=== PATIENT | female | born 2000 | race Caucasian/White ===

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

== ENCOUNTER 2022-09-09 11:40 | Outpatient (REF) | payer MEDICAID, SELFPAY ==
[2022-09-09 13:28] LABS: MANUAL DIFF FLAG NO
[2022-09-09 13:52] LABS: Basophils Percent Auto 0.4 % (0-2); Eosinophils Absolute Auto 0.1 X10*3/uL (0.0-0.4); Eosinophils Percent Auto 1.6 % (0-4); Hematocrit 41.4 % (37.0-47.0); Imm Gran Abs Auto 0.02 X10*3/uL (0.00-0.03); Imm Gran Pct Auto 0.3 % (0.0-0.4); Lymphocytes Absolute Auto 2.6 X10*3/uL (1.2-4.9); Lymphocytes Percent Auto 33.8 % (20-40); Mean Corpuscular HGB Conc 31.4 g/dl (31.0-35.0); Mean Corpuscular Volume 85.9 fL (80.0-98.0); Mean Platelet Volume 10.5 fL (9.4-12.3); Monocytes Absolute Auto 0.5 X10*3/uL (0.1-1.2); Monocytes Percent Auto 6.2 % (2-11); Neutrophils Absolute Auto 4.4 x10*3/uL (2.0-8.3); Neutrophils Percent Auto 57.7 % (45-73); Platelet Count 335 X10*3/uL (160-400); Red Blood Count 4.82 X10*6/uL (4.20-5.50); Red Cell Distribution Width 12.3 % (11.0-16.0); White Blood Count 7.6 X10*3/uL (4.8-10.8)
[2022-09-09 14:29] LABS: Iron 127 mcg/dL (30-160); Percent Iron Saturation 38 % (15-50); Total Iron Binding Capacity 330 mcg/dL (228-428); Unsaturated Iron Binding 203 ug/dL
[2022-09-09 14:47] LABS: Ferritin 18 ng/mL (10-122)
[2022-09-10 06:03] LABS: CT PCR NOT DETECTED (Not Detect.); NG PCR NOT DETECTED (Not Detect.)
[2022-09-10 19:28] LABS: HCV Log PCR <1.18 NOT DETECTED Log IU/mL (NOT DETECTED); HepC Viral Load <15 NOT DETECTED IU/mL (NOT DETECTED)
[2022-09-11 04:19] LABS: Syphilis Screen Nonreactive (Nonreactive)
[2022-09-11 13:23] LABS: HIV RNA PCR Qn Copies NOT DETECTED copies/mL (NOT DETECTED); HIV RNA PCR Qn Log Copies NOT DETECTED (NOT DETECTED)
== END 2022-09-09 11:41 | disposition home or self-care (01) ==
LOC: HO.HHCL 11:40
PROVIDERS: Visit Provider Registered Nurse
DX: Z00.00 Encounter for general adult medical examination without abnormal findings (principal); E61.1 Iron deficiency
CPT/HCPCS: 0353U; 82728; 83540; 85025; 86780; 87522; 87536

== ENCOUNTER 2023-06-10 12:22 | Outpatient (REF) | payer MEDICAID, SELFPAY ==
[2023-06-10 13:17] LABS: MANUAL DIFF FLAG NO
[2023-06-10 13:31] LABS: Basophils Percent Auto 0.4 % (0-2); Eosinophils Absolute Auto 0.3 X10*3/uL (0.0-0.4); Eosinophils Percent Auto 3.8 % (0-4); Hematocrit 43.5 % (37.0-47.0); Imm Gran Abs Auto 0.02 X10*3/uL (0.00-0.03); Imm Gran Pct Auto 0.2 % (0.0-0.4); Lymphocytes Absolute Auto 3.5 X10*3/uL (1.2-4.9); Lymphocytes Percent Auto 38.9 % (20-40); Mean Corpuscular HGB Conc 32.2 g/dl (31.0-35.0); Mean Corpuscular Hemoglobin 27.6 pg (27.0-33.0); Mean Corpuscular Volume 85.8 fL (80.0-98.0); Mean Platelet Volume 9.9 fL (9.4-12.3); Monocytes Absolute Auto 0.6 X10*3/uL (0.1-1.2); Neutrophils Absolute Auto 4.5 x10*3/uL (2.0-8.3); Neutrophils Percent Auto 49.7 % (45-73); Platelet Count 405 X10*3/uL (160-400); Red Blood Count 5.07 X10*6/uL (4.20-5.50); Red Cell Distribution Width 12.4 % (11.0-16.0); White Blood Count 9.1 X10*3/uL (4.8-10.8)
[2023-06-10 16:56] LABS: Iron 105 mcg/dL (30-160); Percent Iron Saturation 28 % (15-50); Total Iron Binding Capacity 377 mcg/dL (228-428); Unsaturated Iron Binding 272 ug/dL
[2023-06-10 17:05] LABS: Ferritin 13 ng/mL (10-122)
== END 2023-06-10 12:23 | disposition home or self-care (01) ==
LOC: HO.HHCL 12:22
PROVIDERS: Visit Provider Registered Nurse
DX: Z13.89 Encounter for screening for other disorder (principal)
CPT/HCPCS: 36415; 82728; 83540; 85025

== ENCOUNTER 2023-07-21 09:44 | Outpatient (REF) | payer MEDICAID, SELFPAY ==
[2023-07-21 15:00] LABS: HCG Quantitative < 2 mIU/mL
== END 2023-07-21 09:45 | disposition home or self-care (01) ==
LOC: HO.CHCLDS 09:44
PROVIDERS: Visit Provider Registered Nurse
DX: N92.6 Irregular menstruation, unspecified (principal)
CPT/HCPCS: 36415; 84702

== ENCOUNTER 2023-09-29 15:24 | Outpatient (REF) | payer MEDICAID, SELFPAY | END 2023-09-29 15:25 | disposition home or self-care (01) | LOC: HO.CHCLNP 15:24 | PROVIDERS: Visit Provider Registered Nurse | DX: Z13.89 Encounter for screening for other disorder (principal) ==

== ENCOUNTER 2023-09-29 19:10 | Outpatient (REF) | payer MEDICAID, SELFPAY ==
[2023-09-30 02:41] LABS: CT PCR NOT DETECTED (Not Detect.); NG PCR NOT DETECTED (Not Detect.)
[2023-09-30 13:57] LABS: Bacterial Vaginosis PCR NEGATIVE (Negative); Candida Group PCR NOT DETECTED (Not Detect); Candida glab krusei PCR NOT DETECTED (Not Detect); Trichomonas vaginalis PCR NOT DETECTED (Not Detect)
== END 2023-09-29 19:11 | disposition home or self-care (01) ==
LOC: HO.HHCLNP 19:10
PROVIDERS: Visit Provider Registered Nurse
DX: Z12.4 Encounter for screening for malignant neoplasm of cervix (principal)
CPT/HCPCS: 0352U; 36415; 87491; 87591; 87661; 88175

== ENCOUNTER 2024-01-14 12:15 | Outpatient (REF) | payer MEDICAID, SELFPAY ==
[2024-01-14 13:09] LABS: MANUAL DIFF FLAG NO
[2024-01-14 13:15] LABS: Basophils Absolute Auto 0.1 X10*3/uL (0.0-0.2); Basophils Percent Auto 0.6 % (0-2); Eosinophils Absolute Auto 0.3 X10*3/uL (0.0-0.4); Eosinophils Percent Auto 2.8 % (0-4); Hematocrit 41.9 % (37.0-47.0); Hemoglobin 13.3 g/dl (12.0-16.0); Imm Gran Abs Auto 0.03 X10*3/uL (0.00-0.03); Imm Gran Pct Auto 0.3 % (0.0-0.4); Lymphocytes Absolute Auto 3.5 X10*3/uL (1.2-4.9); Lymphocytes Percent Auto 35.5 % (20-40); Mean Corpuscular HGB Conc 31.7 g/dl (31.0-35.0); Mean Corpuscular Hemoglobin 26.3 pg (27.0-33.0); Mean Corpuscular Volume 82.8 fL (80.0-98.0); Mean Platelet Volume 9.8 fL (9.4-12.3); Monocytes Absolute Auto 0.9 X10*3/uL (0.1-1.2); Monocytes Percent Auto 9.3 % (2-11); Neutrophils Absolute Auto 5.1 x10*3/uL (2.0-8.3); Neutrophils Percent Auto 51.5 % (45-73); Platelet Count 372 X10*3/uL (160-400); Red Blood Count 5.06 X10*6/uL (4.20-5.50); Red Cell Distribution Width 12.7 % (11.0-16.0); White Blood Count 9.9 X10*3/uL (4.8-10.8)
[2024-01-14 13:34] LABS: Anion Gap 10 (12-20); Blood Urea Nitrogen 16 mg/dL (9-16); Carbon Dioxide 26 mmol/L (22-29); Chloride 109 mmol/L (96-108); Estimated Glomerular Filt Rate > 60; Glucose Random 99 mg/dL (60-115); Potassium 3.9 mmol/L (3.3-5.1); Sodium 141 mmol/L (135-145)
[2024-01-14 13:57] LABS: HCG Quantitative < 2 mIU/mL; TSH reflex Free T4 2.25 uIU/mL (0.32-4.0)
== END 2024-01-14 12:16 | disposition home or self-care (01) ==
LOC: HO.HHCL 12:15
PROVIDERS: Visit Provider Nurse Practitioner
DX: Z32.00 Encounter for pregnancy test, result unknown (principal); R00.0 Tachycardia, unspecified
CPT/HCPCS: 36415; 80048; 84443; 84702; 85025

== ENCOUNTER 2024-04-09 15:10 | Outpatient (REF) | payer MEDICAID, SELFPAY ==
--- OUTSIDE RECORDS SUMMARY | 2024-04-09 17:18 | XMS_ITS | Encounter Summary ---
Author Organization [employer] Address [address] [facility] [address] [place] [address] Care Team Providers Care Parts Room Assistant Name Role Phone Faviola Roy RENU Primary Care Provider [phone] Reason for Visit * Reason Onset Date Comments Chart Prep 04/07/2024 Encounter Details Date Type Department Care Team ([facility] st Contact Info) Description 04/07/2024 Telephone [facility] [address] [place] [address] Tami Madden MA Chart Prep Social History Tobacco Use Types Packs/Day Years Used Date Smoking Tobacco: Never Passive Smoke Exposure: Never Smokeless Tobacco: Never Alcohol Use Standard Drinks/Week Comments Never 0 (1 standard drink = 0.6 oz pur e alcohol) Depression Answer Date Recorded Patient Health Questionnaire-9 Score 0 09/29/2023 Patient Health Questionnaire-9 Score 0 09/29/2023 Last PHQ-9: Questionnaire Data Not on file 0 09/29/2023 Housing Stability Answer Date Recorded What is your housing situation today? I have tyler purdy 07/21/[address] you li ve. Do you have problems with any of the following? None of the above 07/21/2023 Food Insecurity Answer Date Recorded Within the past 12 months, y ou worried that your food would run out before you got money to buy more: Never True 07/21/2023 Within the past 12 months,th e food you bought just didn't last and you didn't have enough money to get more: Never True 11/2023 Transportation Answer Date Recorded In the past 12 months, has l ack of transportation kept you from medical appts, meetings, work or from getting things needed for daily living? No 09/29/2023 Utilities Answer Date Recorded In the past 12 months, has t he electric, gas, oil or water company threatened to shut off services in your home? No 07/21/2023 Depression Answer Date Recorded Patient Health Questionnaire-2 Score 0 09/29/2023 Internet Access Answer Date Recorded Internet Access Q1 Yes 10/13/2023 Internet Access Q2 Not on file 10/13/2023 Comments No Sex and Gender Information Value Date Recorded Sex Assigned at Female 12/10/2021 10:20 AM EDT Legal Sex Female 10:20 AM EDT Gender Identity Female 12/10/2021 10:20 AM EDT Sexual Orientation Choose not to disclose 2021 10:20 AM EDT documented as of this encounter Miscellaneous Notes * Telephone Encounter - Tami Jiang MA - 04/07/2024 10:24 AM EST Chart Prep Labs: done Images: done Vaccines due: yes Referrals: pending appt Screenings: n/a Overdue care gaps: n/a documented in this encounter Plan of Treatment Upcoming Encounters Date Type Department Care Team (Late st Contact Info) Description 05/21/2024 3:30 PM EDT Office Visit [facility] [address] [place] [address] Faviola Roy FNP [address] [place] [address] documented as of this encounter Visit Diagnoses Not on filedocumented in this encounter Additional Health Concerns Assessment Noted Time PHQ-9 Depression Total Score: 0 09/29/19 24 12:07 PM EDT documented as of this encounter Care Teams Parts Room Assistant Relationship Specialty Start Date End Date Faviola Roy FNP [address] [place] [address] PCP - General Family Medicine 10/05/21 documented as of this encounter
--- OUTSIDE RECORDS SUMMARY | 2024-04-09 17:18 | XMS_ITS | Encounter Summary ---
Author Organization [employer] Address [address] [facility] 7[address] [place] [address] Care Team Providers Care Conversion Developer Name Role Phone LucianoFaviola peres RENU Primary Care Provider [phone] Reason for Visit * Reason Comments Med Refill Encounter Details Date Type Department Care Team ([facility] st Contact Info) Description 04/05/[address] [facility] [address] [place] [address] Ml [place] NP [address] [place] [address] Encounter for test, result unknown Social History Tobacco Use Types Packs/Day Years [...] AM EDT documented as of this encounter Plan of Treatment Upcoming Encounters Date Type Department Care Team (Late st Contact Info) Description 05/21/2024 3:30 PM EDT Office Visit [facility] [address] [place] [address] Faviola Roy FNP [address] [place] [address] documented as of this encounter Visit Diagnoses Diagnosis Encounter for test, result unknown documented in this encounter Additional Health Concerns Assessment Noted Time PHQ-9 Depression Total Score: 0 09/29/19 24 12:07 PM EDT documented as of this encounter Care Teams Conversion Developer Relationship Specialty Start Date End Date Faviola Roy FNP [address] [place] [phone] PCP - General Family Medicine 10/05/21 documented as of this encounter
--- OUTSIDE RECORDS SUMMARY | 2024-04-09 17:18 | XMS_ITS | Encounter Summary ---
Author Organization [employer] Address [address] [place] [address] 7t [place] [address] Care Team Providers Care Manager Programs Name Role Phone Faviola Roy Primary Care Provider [phone] Encounter Details Date Type Department Care Team ([facility] Contact Info) Description 09/11/2022 Orders Only [facility] [address] [place] [address] Faviola Roy FNP [address] [place] [address] Dietary iron deficiency without anemia (Primary Dx) Social History Tobacco Use Types Packs/Day Years Used Date Smoking Tobacco: Never Passive Smoke Exposure: Never Smokeless Tobacco: Never Alcohol Use Standard Drinks/Week Comments Never 0 (1 standard drink = 0.6 oz pur e alcohol) Depression Answer Date Recorded Patient Health Questionnaire-9 Score 0 02/13/2022 Depression Answer Date Recorded Patient Health Questionnaire-2 Score 0 02/13/2022 Comments No Sex and Gender Information Value Date Recorded Sex Assigned at Female 12/10/2021 10:20 AM EDT Legal Sex Female 10:20 AM EDT Gender Identity Female 12/10/2021 10:20 AM EDT Sexual Orientation Choose not to disclose 2021 10:20 AM EDT documented as of this encounter Plan of Treatment Upcoming Encounters Date Type Department Care Team ([facility] Contact Info) Description 05/21/2024 3:30 PM EDT Office Visit [facility] [address] [place], [place] [phone] Faviola Roy FNP [address] [place] [address] Scheduled Orders Name Type Priority Associated Diagnoses Orde r Schedule Ferritin Lab Routine Dietary iron deficiency without anemia Expected: 09/11/2022, Expires: 09/12/2023 Iron, TIBC And Ferritin Panel Lab Routine Dietary iron deficiency without anemia Expected: 09/11/2022 (Approximate), Expires: 09/12/2023 CBC auto differential Lab Routine Dietary iron deficiency without anemia Expected: 09/11/2022 (Approximate), Expires: 09/12/2023 documented as of this encounter Procedures Procedure Name Priority Date/Time Associated Diagnosis Comments CBC WITH AUTO DIFFERENTIAL Routine 06/10/2023 12:03 PM EDT Dietary iron deficiency without anemia IRON AND TOTAL IRON BINDING CAPACITY Routine 06/10/2023 12:03 PM EDT Dietary iron deficiency without anemia FERRITIN Routine 06/10/2023 12:03 PM EDT Dietary iron deficiency without anemia documented in this encounter Results * Ferritin (06/10/2023 12:03 PM EDT) Ferritin 13 10 - 122 ng/mL [facility] 06/10/2023 12:0 3 PM EDT 06/10/2023 3:56 PM EDT Faviola Roy SOIL ENGINEER LAB BLOOD ORDERABLES Final Res ult [facility] [address] [place] [phone] * Iron And Total Iron Binding Capacity (06/10/2023 12:03 PM EDT) Iron 105 30 - 160 mcg/dL [facility] Total Iron Binding Capacity 377 228 - 428 mcg/dL [facility] Percent Iron Saturation 28 15 - 50 % [facility] Unsaturated Iron Binding 272 ug/dL [facility] 06/10/2023 12:0 3 PM EDT 06/10/2023 3:56 PM EDT us Faviola Roy SOIL ENGINEER LAB BLOOD ORDERABLES Final Res ult [facility] [address] [place] [address] [phone] * (ABNORMAL) CBC auto differential (06/10/2023 12:03 PM EDT) White Blood Count 9.1 4.8 - 10.8 X10*3/uL [facility] Red Blood Count 5.07 4.20 - 5.50 X10*6/uL [facility] Hemoglobin 14.0 12.0 - 16.0 g/dl [facility] Hematocrit 43.5 37.0 - 47.0 % [facility] Mean Corpuscular Volume 85.8 80.0 - 98.0 fL [facility] Mean Corpuscular Hemoglobin 27.6 27.0 - 33.0 pg [facility] Mean Corpuscular HGB Conc 32.2 31.0 - 35.0 g/dl [facility] Red Cell Distribution Width 12.4 11.0 - 16.0 % [facility] Platelet Count 405(H) 160 - 400 X10*3/uL [facility] Mean Platelet Volume 9.9 9.4 - 12.3 fL [facility] Neutrophils Percent Auto 49.7 45 - 73 % [facility] Imm Gran Pct Auto 0.2 0.0 - 0.4 % [facility] Lymphocytes Percent Auto 38.9 20 - 40 % [facility] Monocytes Percent Auto 7.0 2 - 11 % [facility] Eosinophils Percent Auto 3.8 0 - 4 % [facility] Basophils Percent Auto 0.4 0 - 2 % [facility] NRBC Pct Auto 0.0 0.0 - 0.2 /100WBC [facility] Neutrophils Absolute Auto 4.5 2.0 - 8.3 x10*3/uL [facility] Imm Gran Abs Auto 0.02 0.00 - 0.03 X10*3/uL [facility] Lymphocytes Absolute Auto 3.5 1.2 - 4.9 X10*3/uL [facility] Monocytes Absolute Auto 0.6 0.1 - 1.2 X10*3/uL [facility] Eosinophils Absolute Auto 0.3 0.0 - 0.4 X10*3/uL [facility] Basophils Absolute Auto 0.0 0.0 - 0.2 X10*3/uL [facility] NRBC Abs Auto 0.000 0.0 - 0.012 X10*3/uL [facility] 06/10/2023 12:0 3 PM EDT 06/10/2023 1:14 PM EDT us Faviola SEARS LAB BLOOD ORDERABLES Final Res ult Performing Organization Address City/State/[facility] Co de Phone Number [facility] [address] [place] [phone] [phone] documented in this encounter Visit Diagnoses Diagnosis Dietary iron deficiency without anemia- Primary documented in this encounter Additional Health Concerns Assessment Noted Time PHQ-9 Depression Total Score: 0 02/13/19 23 1:59 PM EST documented as of this encounter Care Teams Manager Programs Relationship Specialty Start Date End Date Faviola Ryo FNP [address] [place] [address] PCP - General Family Medicine 10/05/21 documented as of this encounter
--- OUTSIDE RECORDS SUMMARY | 2024-04-09 17:18 | XMS_ITS | Encounter Summary ---
Author Organization [employer] Address [address] [facility] 7t [place] [address] Care Team Providers Care Book Sorter Name Role Phone Faviola Roy RENU Primary Care Provider [phone] Encounter Details Date Type Department Care Team (Latest Contact Info) Description 04/09/2024 Travel Social History Tobacco Use Types Packs/Day Years [...] Description 05/21/2024 3:30 PM EDT Office Visit [facility] [address] [place], [place] [phone] Faviola Roy FNP [address] [place] [address] documented as of this encounter Visit Diagnoses Not on filedocumented in this encounter Additional Health Concerns Assessment Noted Time PHQ-9 Depression Total Score: 0 09/29/19 24 12:07 PM EDT documented as of this encounter Care Teams Book Sorter Relationship Specialty Start Date End Date Faviola Roy FNP [address] [place] [address] PCP - General Family Medicine 10/05/21 documented as of this encounter
--- OUTSIDE RECORDS SUMMARY | 2024-04-09 17:18 | XMS_ITS | Encounter Summary ---
Author Organization [employer] Address [address] [place] [address] [address] [place] [address] Care Team Providers Care Gasoline Tractor Operator Name Role Phone Faviola Roy Primary Care Provider [phone] Reason for Visit * Reason Comments Follow-up Encounter Details Date Type Department Care Team ([facility] Contact Info) Description 04/09/2024 2:30 PM EST Office Visit [facility] [address] [place], [place] [phone] Faviola Roy FNP [address] [place], [place] [phone] Encounter for immunization (Primary Dx); Screening examination for STI Social History Tobacco Use Types Packs/Day Years [...] AM EDT documented as of this encounter Last Filed Vital Signs Vital Sign Reading Time Taken Comments Blood Pressure 138/58 04/09/2024 2:14 PM EST Pulse 106 04/09/2024 2:14 PM EST Temperature 36.8 ??C (98.2 ??F) 04/09/2024 2:14 PM ES T Respiratory Rate 20 04/09/2024 2:14 PM EST Oxygen Saturation 98% 04/09/2024 2:14 PM EST Inhaled Oxygen Concentration - - Weight 85.2 kg (187 lb 12.8 oz) 04/09/2024 2:14 PM EST Height 149.9 cm (4' 11 ) 04/09/2024 2:14 PM EST Body Mass Index 37.93 04/09/2024 2:14 PM EST documented in this encounter Plan of Treatment Upcoming Encounters Date Type Department Care Team (Late st Contact Info) Description 05/21/2024 3:30 PM EDT Office Visit [facility] [address] [place], [place] [phone] Faviola Roy FNP [address] [place], [place] [phone] Scheduled Orders Name Type Priority Associated Diagnoses Orde r Schedule hCG, Total, Quantitative Lab Routine Screening examination for STI Expected: 04/09/2024 (Approximate), Expires: 04/09/2025 Iron And Total Iron Binding Capacity Lab Routine Screening examination for STI Expected: 04/09/2024, Expires: 04/09/2025 Ferritin Lab Routine Screening examination for STI Expected: 04/09/2024, Expires: 04/09/2025 CBC auto differential Lab Routine Screening examination for STI Expected: 04/09/2024 (Approximate), Expires: 04/09/2025 Chlamydia/N. Gonorrhoeae RNA, TMA, Urogenitial Microbiology Routine Screening examination for STI Expected: 04/09/2024, Expires: 04/09/2025 Hepatitis C Viral RNA, Quantitative, Real-Time PCR Lab Routine Screening examination for STI Expected: 04/09/2024 (Approximate), Expires: 04/09/2025 RPR (Monitor) with Reflex to??Titer Lab Routine Screening examination for STI Expected: 04/09/2024 (Approximate), Expires: 04/09/2025 HIV-1/2 Antigen and Antibodies, Fourth Generation, with Reflexes Lab Routine Screening examination for STI Expected: 04/09/2024 (Approximate), Expires: 04/09/2025 Mycoplasma genitalium,??rRNA, TMA Lab Routine Screening examination for STI Expected: 04/09/2024 (Approximate), Expires: 04/09/2025 documented as of this encounter Visit Diagnoses Diagnosis Encounter for immunization- Primary Screening examination for STI documented in this encounter Additional Health Concerns Assessment Noted Time PHQ-9 Depression Total Score: 0 09/29/19 24 12:07 PM EDT documented as of this encounter Care Teams Gasoline Tractor Operator Relationship Specialty Start Date End Date Faviola Roy FNP [address] [place] [phone] PCP - General Family Medicine 10/05/21 documented as of this encounter
--- OUTSIDE RECORDS SUMMARY | 2024-04-09 17:19 | XMS_ITS | Clinical Summary ---
Author Organization [employer] Address [address] [place] [address] [address] [place] [address] Care Team Providers Care Apparel Patternmaker Name Role Phone Faviola Roy RENU Primary Care Provider [phone] Allergies Active Allergy Reactions Criticality Noted Date Comments Aguero Hives,Itching Medium 04/09/2024 Medications ferrous sulfate (Fe Tabs) 325 (65 Fe) MG EC tabletIndicatio ns:Iron deficiency Take 1 tablet (325 mg) by mouth Once per day. Do not crush, chew, or split. 60 tablet 4 025 Active levonorgestrel- ethinyl estradiol (Aviane) 0.1-20 MG-MCG tabletIndicatio ns:Encounter for routine history and physical examination of adult Take 1 tablet by mouth Once per day. 90 tablet 1 4 025 Active multivitamin () 27-0.8 MG tabletIndicatio ns:Encounter for test, result unknown TAKE 1 TABLET BY MOUTH EVERY DAY 90 tablet 1 5 Active doxycycline (Vibramycin) 100 MG capsule Take 1 capsule (100 mg) by mouth 2 times daily for 7 days. Take with at least 8 ounces (large glass) of water, do not lie down for 30 minutes after 14 capsule 5 025 Active azithromycin (Zithromax) 500 MG tablet Take 2 tablets (1,000 mg) by mouth Once per day for 1 day, THEN 1 tablet (500 mg) Once per day for 3 days. 5 tablet 5 025 Active multivitamin () 27-0.8 MG tabletIndicatio ns:Encounter for test, result unknown Take 1 tablet by mouth Once per day. 30 tablet 3 4 025 Discontinued Active Problems Problem Noted Date Diagnosed Date Healthcare maintenance 10/03/2023 Overview (10/03/2023): Last PE: 09/29/23 Pap: NILM on 09/29/23 Contraception: COCP Iron deficiency 09/09/2022 Assessment & Plan (10/03/2023 6:59 PM EDT): Iron supplement (June-Sep 2023) Switched formulation from ferrous gluconate to ferrous sulfate, pt tolerating better Advised to recheck iron studies, if improved and no anemia, can DC iron supplementation Assessment & Plan (07/24/2023 11:53 AM EDT): Continues on iron supplement (June-Sep 2023) Switch formulation from ferrous gluconate to ferrous sulfate to see if pt tolerates formulation better Assessment & Plan (09/17/2022 4:36 PM EDT): ?? Continues on ferrous gluconate 3x/week ?? Recheck CBC and iron studies Allergic rhinitis 11/22/2016 Assessment & Plan (02/13/2022 10:48 AM EST): -Previously working with therapist, no longer and reports mental health has been good overall Resolved Problems Problem Noted Date Diagnosed Date Resolved Date Adjustment disorder 01/14/2022 09/10/19 23 Assessment & Plan (02/13/2022 10:48 AM EST): -Not currently using any tx and reports symptoms well controlled Encounters Date Type Department Care Team Description 04/09/2024 2:30 PM EST Office Visit [facility] [address] [place] [address] Faviola Roy FNP Encounter for immunization (Primary Dx); Screening examination for STI 04/09/2024 Travel 04/07/2024 Telephone [facility] [address] [place] [address] Tami Madden MA Chart Prep 04/05/2024 Refill [facility] [address] [place] [phone] Ml Eden NP Encounter for test, result unknown 01/27/2024 Telephone [facility] [address] [place] [address] Tami Madden MA Chart Prep 01/15/2024 Telephone [facility] [address] [place] [phone] Anne-Marie Sher RN Results 01/12/2024 6:20 PM EST Office Visit [facility] [address] [address] Ml Eden NP Encounter for test, result unknown (Primary Dx); Tachycardia from Last 3 Months Immunizations Name Administration Dates Next Due DTaP 12/16/2006, 4,05/03/2003,02/16,2002 HPV, Quadrivalent 06/22/2014,02/17/2014,11/02/19 14 Hep A, ped/adol, 2 dose 05/03/2016,09/11/2015 Hep B, Adolescent or Pediatric 05/03/2003,2002,2002 Hep B, adult 09/09/2022,02/13/2022,12/28/2021 Hib (HbOC) 03/21/2003,02/16/2003,2002 IPV 12/16/2006, 4,02/16/2003,11/25 Influenza injectable quadriv alent IIV4 with preservative 10/28/2016,11/03/2015 Influenza injectable quadriv alent preservative free 11/28/2021,12/29/2020,01/31/2020,12/16,12/10/2017,10/28/2016,11/03/2015 Influenza live intranasal qu adrivalent LIAV4 11/01/2013 Influenza, seasonal, injecta ble, preservative free 04/09/2024 MMR 12/16/2006,09/20/2003 Meningococcal MCV4P [id number] 12/16/2018,11/02/19 14 Pfizer Covid-19 Vaccine 12+ 04/09/2024,0 07/21/2023,02/15/2021,07/27,07/06/2020 Pfizer Covid-19 Vaccine 12+ Bivalent 03/26/2022 Tdap 04/09/2024,11/01/2013 Varicella 02/15/2010,11/09/2003 Family History Medical History Relation Name Comments Asthma Brother seizure disorder Brother Relation Name Status Comments Brother Social History Tobacco Use Types Packs/Day Years Used Date Smoking Tobacco: Never Passive Smoke Exposure: Never Smokeless Tobacco: Never Tobacco Cessation:Counseling Given: Not Answered Alcohol Use Standard Drinks/Week Comments Never 0 [...] not to disclose 2021 10:20 AM EDT Last Filed Vital Signs Vital Sign Reading [...] Mass Index 37.93 04/09/2024 2:14 PM EST Plan of Treatment Upcoming Encounters Date Type Department Care Team (Late st Contact Info) Description 05/21/2024 3:30 PM EDT Office Visit [facility] [address] [place] [address] Faviola Roy FNP [address] [place] [address] Health Maintenance Due Date Last Done Comments Alcohol/Substance Use Screening 09/28/2024 09/29/2023 Chlamydia and Gonorrhea Screening 09/28/2024 09/29/2023, 09/09/2022, 03/13/2022, Additional history exists Depression Screening 09/28/2024 09/29/2023, 09/29/19 SDOH Screening 09/28/2024 09/29/2023 Family Planning (PISQ) 10/02/2024 10/03/2023 Tobacco Screening 10/02/2024 10/03/2023 Pap Smear 09/28/2026 09/29/2023 DTaP/Tdap/Td Vaccines (8 - Td or Tdap) 04/09/2034 04/09/2024, 11/01/2013, 12/16/2006, Additional history exists Zoster Vaccines (1 of 2) 2052 RSV Patients and Patients Aged 60 years or older (1 - 1-dose 75+ series) 2077 HIB Vaccines Aged Out 03/21/2003, 08/2003, 2002 No longer eligible based on patient's age to complete this topic IPV Vaccines Completed 12/16/2006, 04/11, 02/16/2003, Additional history exists HPV Vaccines Completed 06/22/2014, 09/2014, 11/01/2013 Hepatitis A Vaccines Completed 05/03/2016, 09/11/19 16 Meningococcal Vaccine Completed 12/16/2018, 014 HIV Screening Completed 09/09/2022 Hepatitis B Vaccines Completed 09/09/2022, 02/13/2022, 12/28/2021, Additional history exists Hepatitis C Screening Completed 09/09/2022, 021 COVID-19 Vaccine Completed 04/09/2024, 11/2023, 03/26/2022, Additional history exists Influenza Vaccine Completed 04/09/2024, , 12/29/2020, Additional history exists Pneumococcal Vaccine: Pediatrics (0 to 5 Years) and At-Risk Patients (6 to 49) Years) Aged Out No longer eligible based on patient's age to complete this topic RSV under 20 months Aged Out No longe r eligible based on patient's age to complete this topic Rotavirus Vaccines Aged Out No longer eligible based on patient's age to complete this topic Procedures Procedure Name Priority Date/Time Associated Diagnosis Comments BASIC METABOLIC PANEL Routine 01/14/2024 12:20 PM EST Tachycardia TSH W/REFLEX TO FT4 Routine 01/14/2024 1 2:20 PM EST Tachycardia CBC WITH AUTO DIFFERENTIAL Routine 01/14/2024 12:20 PM EST Tachycardia HCG, TOTAL, QN Routine 01/14/2024 12:20 PM EST Encounter for test, result unknown POCT , URINE Routine 01/12/2024 7:11 PM EST Encounter for test, result unknown CHLAMYDIA/N. GONORRHOEAE RNA, TMA, UROGENITAL Routine 09/29/2023 11:48 AM EDT Dietary iron deficiency without anemia THINPREP IMAGING SYSTEM PAP Routine 09/29/2023 11:47 AM EDT Screening for cervical cancer HEPATITIS C VIRAL RNA, QUANTITATIVE, REAL-TIME PCR Routine 09/09/2022 11:43 AM EDT Encounter for routine history and physical examination of adult HIV 1 RNA, QUANTITATIVE REAL TIME PCR Routine 09/09/2022 11:43 AM EDT Encounter for routine history and physical examination of adult from Last 3 Months or Most Recently Relevant to Health Maintenance Results * TSH W/Reflex to FT4 (01/14/2024 12:20 PM EST) TSH reflex Free T4 2.25 0.32 - 4.0 uIU/mL [facility] Blood Venous blood specimen / Unknown 01/14/2024 12:20 PM EST 01/14/2024 12:56 PM EST Ml Eden SHEAR GRINDER OPERATOR HELPER LAB BLOOD ORDERABLES Final Resu lt [facility] [address] [place] [phone] * (ABNORMAL) CBC auto differential (01/14/2024 12:20 PM EST) White Blood Count 9.9 4.8 - 10.8 X10*3/uL [facility] Red Blood Count 5.06 4.20 - 5.50 X10*6/uL [facility] Hemoglobin 13.3 12.0 - 16.0 g/dl [facility] Hematocrit 41.9 37.0 - 47.0 % [facility] Mean Corpuscular Volume 82.8 80.0 - 98.0 fL [facility] Mean Corpuscular Hemoglobin 26.3(L) 27.0 - 33.0 pg [facility] Mean Corpuscular HGB Conc 31.7 31.0 - 35.0 g/dl [facility] Red Cell Distribution Width 12.7 11.0 - 16.0 % [facility] Platelet Count 372 160 - 400 X10*3/uL [facility] Mean Platelet Volume 9.8 9.4 - 12.3 fL [facility] Neutrophils Percent Auto 51.5 45 - 73 % [facility] Imm Gran Pct Auto 0.3 0.0 - 0.4 % [facility] Lymphocytes Percent Auto 35.5 20 - 40 % [facility] Monocytes Percent Auto 9.3 2 - 11 % [facility] Eosinophils Percent Auto 2.8 0 - 4 % [facility] Basophils Percent Auto 0.6 0 - 2 % [facility] NRBC Pct Auto 0.0 0.0 - 0.2 /100WBC [facility] Neutrophils Absolute Auto 5.1 2.0 - 8.3 x10*3/uL [facility] Imm Gran Abs Auto 0.03 0.00 - 0.03 X10*3/uL [facility] Lymphocytes Absolute Auto 3.5 1.2 - 4.9 X10*3/uL [facility] Monocytes Absolute Auto 0.9 0.1 - 1.2 X10*3/uL [facility] Eosinophils Absolute Auto 0.3 0.0 - 0.4 X10*3/uL [facility] Basophils Absolute Auto 0.1 0.0 - 0.2 X10*3/uL [facility] NRBC Abs Auto 0.000 0.0 - 0.012 X10*3/uL [facility] Blood Venous blood specimen / Unknown 01/14/2024 12:20 PM EST 01/14/2024 12:56 PM EST us Ml Eden SHEAR GRINDER OPERATOR HELPER LAB BLOOD ORDERABLES Final Resu lt [facility] [address] [place] [address] [phone] * hCG, Total, Quantitative (01/14/2024 12:20 PM EST) [facility] HCG Quantitative <2 mIU/mL [facility] Comment:Weeks post LMP Appr oximate hCG(Last Menstrual Period) Range (mIU/ml)3 - 4 weeks 9 - 1304 - 5 weeks 75 - 2,6005 - 6 weeks 850 - 20,8006 - 7 weeks 4000 - 100,2007 - 12 weeks 11,500 - 289,15212 - 16 weeks 18,300 - 137,05950 - 29 weeks (2nd trimester) 1,400 - 53,61541 - 41 weeks (3rd trimester) 940 - 60,000The Siu B-hCG assay is used for the early detection ofpregnancy; it cannot be used to diagnose any conditionunrelated to . If a B-hCG level is not supportedby the clinical evidence, results should be confirmed by analternative method (qualitative urine hCG, for example). Blood Venous blood specimen / Unknown 01/14/2024 12:20 PM EST 01/14/2024 12:56 PM EST Ml Eden NP LAB BLOOD ORDERABLES Final Resu lt [facility] [address] [place] [address] [phone] * (ABNORMAL) Basic Metabolic Panel (01/14/2024 12:20 PM EST) [facility] Sodium 141 135 - 145 mmol/L [facility] Potassium 3.9 3.3 - 5.1 mmol/L [facility] Chloride 109(H) 96 - 108 mmol/L [facility] Carbon Dioxide 26 22 - 29 mmol/L [facility] Anion Gap 10(L) 12 - 20 [facility] Urea Nitrogen (BUN) 16 9 - 16 mg/dL [facility] Creatinine, Serum 0.79 0.5 - 1.4 mg/dL [facility] Estimated Glomerular Filt Rate >60 [facility] Comment:Chronic Kidney Disea se: Estimated GFR < 60 mL/min/1.81n8Gsqlcj Kidney Disease: Estimated GFR < 15 mL/min/1.73m2 Glucose 99 60 - 115 mg/dL [facility] Calcium 9.0 8.4 - 10.2 mg/dL [facility] Blood Venous blood specimen / Unknown 01/14/2024 12:20 PM EST 01/14/2024 12:56 PM EST [facility] LAB BLOOD ORDERABLES Final Resu lt [facility] [address] [place] [address] [phone] * POCT Urine (01/12/2024 7:11 PM EST) Preg Test, Ur Negative Negative, Indeterminate, None Detected, Invalid, Specimen unsatisfactory for evaluation, Weakly Positive QC Media Lot # [id number] Lot# Expiration Date Urine 01/12/2024 7:11 PM EST [facility] POINT OF CARE TEST ENTER/EDIT O RDERABLES Final Result * Chlamydia/N. Gonorrhoeae RNA, TMA, Urogenitial (09/29/2023 11:48 AM EDT) CT PCR NOT DETECTED Not Detect. [facility] Comment:A not detected test result does not exclude the possibilityof infection because test results can be affected byimproper specimen collection, concurrent antibiotic therapy,or the number of organisms in the specimen which may bebelow the sensitivity of the test. As with many diagnostictests, results from the Xpert CT/NG assay should beinterpreted in conjunction with other laboratory andclinical data available to the clinician.Xpert CT/NG performance has not been evaluated in patientsless than 14 years of age. The assay should not be used forthe evaluationof suspected sexual abuse or for other medico-legalindications. Additional testing is recommended in anycircumstance when false positive or false negative resultscould lead to adverse medical, social or psychologicalconsequences. NG PCR NOT DETECTED Not Detect. [facility] Comment:A not detected test result does not exclude the possibilityof infection because test results can be affected byimproper specimen collection, concurrent antibiotic therapy,or the number of organisms in the specimen which may bebelow the sensitivity of the test. As with many diagnostictests, results from the Xpert CT/NG assay should beinterpreted in conjunction with other laboratory andclinical data available to the clinician.Xpert CT/NG performance has not been evaluated in patientsless than 14 years of age. The assay should not be used forthe evaluationof suspected sexual abuse or for other medico-legalindications. Additional testing is recommended in anycircumstance when false positive or false negative resultscould lead to adverse medical, social or psychologicalconsequences. 09/29/2023 11:4 8 AM EDT 09/29/2023 7:57 PM EDT Narrative [facility] - 09/30/2023 2:42 AM EDT ONLY RECIEVED ONE SWABVaginal Faviola Roy [facility] MICROBIOLOGY - GENERAL ORD ERABLES Final Result [facility] [address] [place] [phone] * Pap Smear (09/29/2023 11:47 AM EDT) SOURCE: SEE NOTE [facility] Comment:None given Report Status: [facility] Clinical Information: SEE NOTE [facility] Comment:None given LMP: SEE NOTE [facility] Comment:NONE GIVEN Prev. PAP: SEE NOTE [facility] Comment:NONE GIVEN Prev. BX: SEE NOTE [facility] Comment:NONE GIVEN Statement Of Adequacy: SEE [facility] Comment:Satisfactory for jesus luation.Endocervical/transformation zone componentpresent. General Categorization: [facility] Interpretation/Result: SEE NOTE [facility] Comment:Cytology Results: Ne gative for intraepitheliallesion or malignancy. Cytology Comment SEE NOTE [facility] Comment:This Pap test has be en evaluated with computerassisted technology. System Technologist: SEE NOTE [facility] Comment:CMB, CT(ASCP) CT Scr eening Location: [employer] [address] preparation performed at: [facility], [address] [place] [id number] CLIA No. [id number] Review System Technologist: [facility] Pathologist [facility] PAP Infection [facility] See Note SEE NOTE [facility] Comment:EXPLANATORY NOTE:The Pap is a screening test for cervical cancer. It isnot a diagnostic test and is subject to false negativeand false positive results. It is most reliable when asatisfactory sample, regularly obtained, is submittedwith relevant clinical findings and history, and whenthe Pap result is evaluated along with historic andcurrent clinical information.THIS TEST WAS PERFORMED AT:[facility] [address] [id number] MERATI,MD Pap Vial Vaginal structure / Unknown 09/29/2023 11:47 AM EDT 09/29/2023 7:13 PM EDT Narrative [facility] - 10/03/2023 2:51 PM EDT SEE SCANNED RESULTS IN EMR Faviola Roy [facility] PATHOLOGY ORDERABLES Final Result [facility] [address] [place] [address] [phone] * Hepatitis C Viral RNA, Quantitative, Real-Time PCR (09/09/2022 11:43 AM EDT) Hepatitis C Viral Load <15 NOT DETECTED NOT DETECTED IU/mL [facility] HCV Log PCR <1.18 NOT DETECTED NOT DETECTED Log IU/mL [facility] Comment:This test was perfor med using Real-Time Polymerase ChainReaction.Reportable Range: 15 IU/mL to 100,000,000 IU/mL(1.18 Log IU/mL to 8.00 Log IU/mL).The analytical performance characteristics of thisassay have been determined by [facility].The modifications have not been cleared or approved bythe FDA. This assay has been validated pursuant to theCLIA regulations and is used for clinical purposes.For more information on this test, go to:http://education.[employer]/faq/TRT05d7(This link is being provided for informational/educational purposes only.)THIS TEST WAS PERFORMED AT:[email or web address] [address] [id number] SIM MD Blood 09/09/2022 11:4 3 AM EDT 09/09/2022 1:24 PM EDT Faviola MORGANP LAB BLOOD ORDERABLES Final Res ult Performing Organization Address [facility] de Phone Number [address] [phone] * HIV-1 RNA, Quantitative, Real-Time PCR (09/09/2022 11:43 AM EDT) [facility] Signature HIV RNA PCR Qn Copies NOT DETECTED NOT DETECTED copies/mL [facility] HIV RNA PCR Qn Log Copies NOT DETECTED NOT DETECTED [facility] Comment:Result Units: Log co pies/mLThis test was performed using Real-Time Polymerase ChainReaction.Reportable Range: 20 copies/mL to 10,000,000 copies/mL(1.30 log copies/mL to 7.00 log copies/mL).THIS TEST WAS PERFORMED AT:[email or web address] [address] [id number] SIM MD Blood Venous blood specimen / Unknown 09/09/2022 11:43 AM EDT 09/09/2022 1:24 PM EDT Faviola MORGANP LAB BLOOD ORDERABLES Final Res ult Performing Organization Address [facility] de Phone Number [facility] [address] [place] [phone] from Last 3 Months or Most Recently Relevant to Health Maintenance Insurance [facility] C3 Care Teams Apparel Patternmaker Relationship Specialty Start Date End Date Faviola Roy FNP [address] [place] [address] PCP - General Family Medicine 10/05/21
[2024-04-09 17:48] LABS: MANUAL DIFF FLAG NO
[2024-04-09 18:15] LABS: Iron 94 mcg/dL (30-160); Percent Iron Saturation 29 % (15-50); Total Iron Binding Capacity 324 mcg/dL (228-428); Unsaturated Iron Binding 230 ug/dL
[2024-04-09 18:21] LABS: Basophils Percent Auto 0.4 % (0-2); Eosinophils Absolute Auto 0.1 X10*3/uL (0.0-0.4); Hematocrit 40.4 % (37.0-47.0); Hemoglobin 13.1 g/dl (12.0-16.0); Imm Gran Abs Auto 0.03 X10*3/uL (0.00-0.03); Imm Gran Pct Auto 0.4 % (0.0-0.4); Lymphocytes Absolute Auto 3.2 X10*3/uL (1.2-4.9); Lymphocytes Percent Auto 37.8 % (20-40); Mean Corpuscular HGB Conc 32.4 g/dl (31.0-35.0); Mean Corpuscular Hemoglobin 26.5 pg (27.0-33.0); Mean Corpuscular Volume 81.6 fL (80.0-98.0); Mean Platelet Volume 10.5 fL (9.4-12.3); Monocytes Absolute Auto 0.5 X10*3/uL (0.1-1.2); Monocytes Percent Auto 5.6 % (2-11); Neutrophils Absolute Auto 4.6 x10*3/uL (2.0-8.3); Neutrophils Percent Auto 54.8 % (45-73); Platelet Count 368 X10*3/uL (160-400); Red Blood Count 4.95 X10*6/uL (4.20-5.50); Red Cell Distribution Width 12.7 % (11.0-16.0); White Blood Count 8.4 X10*3/uL (4.8-10.8)
[2024-04-09 18:39] LABS: Ferritin 23 ng/mL (10-122); HCG Quantitative < 2 mIU/mL
[2024-04-09 19:38] LABS: CT PCR NOT DETECTED (Not Detect.); NG PCR NOT DETECTED (Not Detect.)
[2024-04-11 15:39] LABS: RPR Rapid Plasma Reagin NON-REACTIVE (NON-REACTIVE)
[2024-04-12 09:24] LABS: HIV AB/AG Nonreactive (Nonreactive)
[2024-04-12 12:07] LABS: HCV Log PCR <1.18 NOT DETECTED Log IU/mL (NOT DETECTED); HepC Viral Load <15 NOT DETECTED IU/mL (NOT DETECTED)
[2024-04-13 08:09] LABS: Mycoplasma genitalium NAA Not Detected (Not Detected)
== END 2024-04-09 15:11 | disposition home or self-care (01) ==
LOC: HO.CHCLDS 15:10
PROVIDERS: Visit Provider Registered Nurse
DX: Z11.3 Encounter for screening for infections with a predominantly sexual mode of transmission (principal)
CPT/HCPCS: 82728; 83540; 84702; 85025; 86592; 87389; 87491; 87522; 87563; 87591

== ENCOUNTER 2024-09-02 14:31 | Outpatient (REF) | payer MEDICAID, SELFPAY ==
--- OUTSIDE RECORDS SUMMARY | 2024-09-02 14:43 | XMS_ITS | Clinical Summary ---
Author Organization [facility] [address] [facility] Address [address] [place], [place] Phone Care Team Providers Care Literacy Coach Name Role Phone Unavailable Primary Care Provider Unavailabl e Social History Tobacco Use Types Packs/Day Years Used Date Smoking Tobacco: Never Assessed Comments Unknown Sex and Gender Information Value Date Recorded Sex Assigned at Not on file Legal Sex Female 1:15 PM EDT Gender Identity Not on file Sexual Orientation Not on file Plan of Treatment Upcoming Encounters Date Type Department Care Team ([facility] Contact Info) Description 10/05/2024 2:30 PM EDT Office Visit Obstetrics and Gynecology [address] [phone] [place], [facility] [address] [place], [place] Health Maintenance Due Date Last Done Comments Gonorrhea/Chlamydia Screening 2002 HPV Vaccines (1 - 3-dose series) 2017 Meningococcal B Vaccine (1 o f 2 - Standard) 2018 DTaP,Tdap,and Td Vaccines (1 - Tdap) 2021 Hepatitis B Vaccines (1 of 3 - 19+ 3-dose series) 2021 Cervical Cancer Screening: P ap Smear 09/16/2023 COVID-19 Vaccine ( - 2023-2 5 season) 2023 Depression Screening 02/11/2024 Annual Well Child Visit (3-2 1 years old) 08/31/2024 HIV Screening 08/31/2024 Hepatitis C Screening 08/31/2024 Social Influencers of Health Screening 08/31/2024 Influenza Vaccine (#1) 2024 HIB Vaccines Aged Out No longer eligi ble based on patient's age to complete this topic Hepatitis A Vaccines Aged Out No long er eligible based on patient's age to complete this topic IPV Vaccines Aged Out No longer eligi ble based on patient's age to complete this topic MMR Vaccines Aged Out No longer eligi ble based on patient's age to complete this topic Meningococcal ACWY Vaccine Aged Out N o longer eligible based on patient's age to complete this topic Pneumococcal Vaccine: Pediat rics (0 to 5 Years) and At-Risk Patients (6 to 49 Years) Aged Out No longer eligible b ased on patient's age to complete this topic RSV Immunization Patients Un rita 20 months Aged Out No longer eligible b ased on patient's age to complete this topic Varicella Vaccines Aged Out No longer eligible based on patient's age to complete this topic Insurance [place]
--- OUTSIDE RECORDS SUMMARY | 2024-09-02 14:43 | XMS_ITS | Encounter Summary ---
Author Organization [employer] Address [address] [place] [address] [address] [address] Care Team Providers Care Life Sciences Teacher Name Role Phone Faviola Roy Primary Care Provider [phone] Encounter Details Date Type Department Care Team ([facility] Contact Info) Description 09/11/2022 Orders Only [facility] MEDICINE [address] [place] [address] Faviola Roy FNP [address] [place], [place] [phone] Dietary iron deficiency without anemia (Primary Dx) [...] Encounters Date Type Department Care Team ([facility] Contact Info) Description 11/12/2024 2:45 PM EDT Office Visit [facility] CH[facility] MED & PEDS [address] [place], [place] [phone] Faviola Roy FNP [address] [place] [address] Scheduled Orders Name Type Priority Associated Diagnoses [...] EDT) Ferritin 13 10 - 122 ng/mL [facility] 06/10/2023 12:0 3 PM EDT 06/10/2023 3:56 PM EDT us Faviola Roy [facility] [employer] BLOOD ORDERABLES Final Res ult [facility] [address] [place] [phone] * Iron And Total Iron Binding Capacity (06/10/2023 12:03 PM EDT) Iron 105 30 - 160 mcg/dL [facility] Total Iron Binding Capacity 377 228 - 428 mcg/dL [facility] Percent Iron Saturation 28 15 - 50 % [facility] Unsaturated Iron Binding 272 ug/dL [facility] 06/10/2023 12:0 3 PM EDT 06/10/2023 3:56 PM EDT us Faviola Roy [facility] BLOOD ORDERABLES Final Res ult [facility] [address] [place] [address] [phone] * (ABNORMAL) CBC auto differential (06/10/2023 12:03 PM EDT) White Blood Count 9.1 4.8 - 10.8 X10*3/uL [facility] Red Blood Count 5.07 4.20 - 5.50 X10*6/uL [facility] Hemoglobin 14.0 12.0 - 16.0 g/dl [facility] Hematocrit 43.5 37.0 - 47.0 % [facility] Mean Corpuscular Volume 85.8 80.0 - 98.0 fL [facility] Mean Corpuscular Hemoglobin 27.6 27.0 - 33.0 pg [facility] Mean Corpuscular HGB Conc 32.2 31.0 - 35.0 g/dl [facility] Red Cell Distribution Width 12.4 11.0 - 16.0 % [facility] Platelet Count 405(H) 160 - 400 X10*3/uL [facility] Mean Platelet Volume 9.9 9.4 - 12.3 fL [facility] Neutrophils Percent Auto 49.7 45 - 73 % [facility] Imm Gran Pct Auto 0.2 0.0 - 0.4 % [facility] Lymphocytes Percent Auto 38.9 20 - 40 % [facility] Monocytes Percent Auto 7.0 2 - 11 % [facility] Eosinophils Percent Auto 3.8 0 - 4 % [facility] Basophils Percent Auto 0.4 0 - 2 % [facility] NRBC Pct Auto 0.0 0.0 - 0.2 /100WBC [facility] Neutrophils Absolute Auto 4.5 2.0 - 8.3 x10*3/uL [facility] Imm Gran Abs Auto 0.02 0.00 - 0.03 X10*3/uL [facility] Lymphocytes Absolute Auto 3.5 1.2 - 4.9 X10*3/uL [facility] Monocytes Absolute Auto 0.6 0.1 - 1.2 X10*3/uL [facility] Eosinophils Absolute Auto 0.3 0.0 - 0.4 X10*3/uL [facility] Basophils Absolute Auto 0.0 0.0 - 0.2 X10*3/uL [facility] NRBC Abs Auto 0.000 0.0 - 0.012 X10*3/uL [facility] 06/10/2023 12:0 3 PM EDT 06/10/2023 1:14 PM EDT us Faviola SE[facility] LAB BLOOD ORDERABLES Final Res ult Performing Organization Address City/State/[facility] Co de Phone Number [facility] [address] [place] [address] [phone] documented in this encounter Visit Diagnoses Diagnosis Dietary iron deficiency without anemia- Primary documented in this encounter Additional Health Concerns Assessment Noted Time PHQ-9 Depression Total Score: 0 02/13/19 23 1:59 PM EST documented as of this encounter Care Teams Life Sciences Teacher Relationship Specialty Start Date End Date Faviola Roy FNP [address] [place] [address] PCP - General Family Medicine 10/05/21 documented as of this encounter
[2024-09-02 16:22] LABS: MANUAL DIFF FLAG NO
[2024-09-02 16:38] LABS: Hematocrit 39.3 % (37.0-47.0); Hemoglobin 12.6 g/dl (12.0-16.0); Imm Gran Abs Auto 0.06 X10*3/uL (0.00-0.03); Imm Gran Pct Auto 0.6 % (0.0-0.4); Lymphocytes Absolute Auto 4.0 X10*3/uL (1.2-4.9); Mean Corpuscular HGB Conc 32.1 g/dl (31.0-35.0); Mean Corpuscular Hemoglobin 26.3 pg (27.0-33.0); Mean Corpuscular Volume 81.9 fL (80.0-98.0); NRBC Abs Auto 0.000 X10*3/uL (0.0-0.012); NRBC Pct Auto 0.0 /100WBC (0.0-0.2); Platelet Count 356 X10*3/uL (160-400); Red Blood Count 4.80 X10*6/uL (4.20-5.50); White Blood Count 9.3 X10*3/uL (4.8-10.8)
[2024-09-02 16:52] LABS: Iron 51 mcg/dL (30-160); Percent Iron Saturation 17 % (15-50); Total Iron Binding Capacity 306 mcg/dL (228-428); Unsaturated Iron Binding 255 ug/dL
[2024-09-02 17:03] LABS: Ferritin 17 ng/mL (10-122)
== END 2024-09-02 14:32 | disposition home or self-care (01) ==
LOC: HO.HHCL 14:31
PROVIDERS: PCP Registered Nurse; Visit Provider Registered Nurse
DX: E61.1 Iron deficiency (principal)
CPT/HCPCS: 36415; 82728; 83540; 84702; 85025

== ENCOUNTER 2024-11-15 14:57 | Outpatient (REF) | payer MEDICAID, SELFPAY ==
--- OUTSIDE RECORDS SUMMARY | 2024-11-12 14:45 | XMS_ITS | Encounter Summary ---
Author Organization [email or web address] Address [address] [place] [address] [address] [place] [address] Care Team Providers Care Chili Pepper Grinder Name Role Phone Faviola Roy Primary Care Provider [phone] Encounter Details Date Type Department Care Team ([facility] st Contact Info) Description 11/12/2024 2:45 PM EDT Office Visit [facility] MED & PEDS [address] [place], [place] [phone] Faviola Roy FNP [address] [place], [place] [phone] Healthcare maintenance (Primary Dx); Encounter for immunization Social History Tobacco Use Types Packs/Day Years [...] housing situation today? I have tyler purdy 11/05/[address] you li ve. Do you have problems with any of the following? None of the above 11/05/2024 Food Insecurity Answer Date Recorded Within the past 12 months, y ou worried that your food would run out before you got money to buy more: Never True 11/05/2024 Within the past 12 months,th e food you bought just didn't last and you didn't have enough money to get more: Never True Transportation Answer Date Recorded In the past 12 months, has l ack of transportation kept you from medical appts, meetings, work or from getting things needed for daily living? No 11/05/2024 Utilities Answer Date Recorded In the past 12 months, has t he electric, gas, oil or water company threatened to shut off services in your home? No 11/05/2024 Depression Answer Date Recorded Patient Health Questionnaire-2 Score 0 09/29/2023 Internet Access Answer Date Recorded Internet Access Q1 Yes 11/05/2024 Internet Access Q2 Not on file 11/05/2024 Comments No Sex and Gender Information Value Date Recorded Sex Assigned at Female 12/10/2021 10:20 AM EDT Legal Sex Female 10:20 AM EDT Gender Identity Female 12/10/2021 10:20 AM EDT Sexual Orientation Choose not to disclose 2021 10:20 AM EDT documented as of this encounter Last Filed Vital Signs Vital Sign Reading Time Taken Comments Blood Pressure 114/86 11/12/2024 1:58 PM EDT Pulse 78 11/12/2024 1:58 PM EDT Temperature 37.1 C (98.7 F) 11/12/2024 1:58 PM EDT Respiratory Rate 20 11/12/2024 1:58 PM EDT Oxygen Saturation 98% 11/12/2024 1:58 PM EDT Inhaled Oxygen Concentration - - Weight 83.7 kg (184 lb 9.6 oz) 11/12/2024 1:58 P M EDT Height 149.9 cm (4' 11 ) 11/12/2024 1:58 PM EDT Body Mass Index 37.28 11/12/2024 1:58 PM EDT documented in this encounter Plan of Treatment Scheduled Orders Name Type Priority Associated Diagnoses Orde r Schedule Lipid Panel, Standard Lab Routine Healthcare maintenance Expected: 11/12/2024 (Approximate), Expires: 11/12/2025 TSH with Reflex to Free T4 Lab Routine Healthcare maintenance Expected: 11/12/2024 (Approximate), Expires: 11/12/2025 Comprehensive Metabolic Panel Lab Routine Healthcare maintenance Expected: 11/12/2024 (Approximate), Expires: 11/12/2025 Vitamin D, 25-Hydroxy, Total, Immunoassay Lab Routine Healthcare maintenance Expected: 11/12/2024 (Approximate), Expires: 11/12/2025 Ferritin Lab Routine Healthcare maintenance Expected: 11/12/2024, Expires: 11/12/2025 Iron And Total Iron Binding Capacity Lab Routine Healthcare maintenance Expected: 11/12/2024, Expires: 11/12/2025 Chlamydia/Trichomonas/Neis seria gonorrhoeae, PCR, Urine Lab Routine Healthcare maintenance Expected: 11/12/2024 (Approximate), Expires: 11/12/2025 Hepatitis C Viral RNA, Quantitative, Real-Time PCR Lab Routine Healthcare maintenance Expected: 11/12/2024 (Approximate), Expires: 11/12/2025 RPR (Monitor) with Reflex to Titer Lab Routine Healthcare maintenance Expected: 11/12/2024 (Approximate), Expires: 11/12/2025 HIV-1/2 Antigen and Antibodies, Fourth Generation, with Reflexes Lab Routine Healthcare maintenance Expected: 11/12/2024 (Approximate), Expires: 11/12/2025 documented as of this encounter Procedures Procedure Name Priority Date/Time Associated Diagnosis Comments CBC WITH AUTO DIFFERENTIAL Routine 11/15/2024 3:35 PM EDT Healthcare maintenance HEMOGLOBIN A1C Routine 11/15/2024 3:35 PM EDT Healthcare maintenance documented in this encounter Results * (ABNORMAL) CBC auto differential (11/15/2024 3:35 PM EDT) White Blood Count 9.4 4.8 - 10.8 X10*3/uL [facility] Red Blood Count 4.81 4.20 - 5.50 X10*6/uL [facility] Hemoglobin 12.8 12.0 - 16.0 g/dl [facility] Hematocrit 39.0 37.0 - 47.0 % [facility] Mean Corpuscular Volume 81.1 80.0 - 98.0 fL [facility] Mean Corpuscular Hemoglobin 26.6(L) 27.0 - 33.0 pg [facility] Mean Corpuscular HGB Conc 32.8 31.0 - 35.0 g/dl [facility] Red Cell Distribution Width 13.1 11.0 - 16.0 % [facility] Platelet Count 359 160 - 400 X10*3/uL [facility] Mean Platelet Volume 10.3 9.4 - 12.3 fL [facility] Neutrophils Percent Auto 48.2 45 - 73 % [facility] Imm Gran Pct Auto 0.3 0.0 - 0.4 % [facility] Lymphocytes Percent Auto 40.4(H) 20 - 40 % [facility] Monocytes Percent Auto 7.8 2 - 11 % [facility] Eosinophils Percent Auto 2.9 0 - 4 % [facility] Basophils Percent Auto 0.4 0 - 2 % [facility] NRBC Pct Auto 0.0 0.0 - 0.2 /100WBC [facility] Neutrophils Absolute Auto 4.5 2.0 - 8.3 x10*3/uL [facility] Imm Gran Abs Auto 0.03 0.00 - 0.03 X10*3/uL [facility] Lymphocytes Absolute Auto 3.8 1.2 - 4.9 X10*3/uL [facility] Monocytes Absolute Auto 0.7 0.1 - 1.2 X10*3/uL [facility] Eosinophils Absolute Auto 0.3 0.0 - 0.4 X10*3/uL [facility] Basophils Absolute Auto 0.0 0.0 - 0.2 X10*3/uL [facility] NRBC Abs Auto 0.000 0.0 - 0.012 X10*3/uL [facility] Blood Venous blood specimen / Unknown 11/15/2024 3:35 PM EDT 11/15/2024 3:35 PM EDT us Faviola Roy [employer] MECH[employer]IC LAB BLOOD ORDERABLES Final Res ult [facility] [address] [place] [phone] * Hemoglobin A1c (11/15/2024 3:35 PM EDT) Hemoglobin A1c 5.2 <6.0 % [facility] Comment:Hemoglobin A1C Refer ence Range Adults: 4.8 - 6.0 % Non diabetic: < 6.0 % Goal: < 7.0 %Additional Action Suggested: > 8.0 %Note: Hemoglobin A1c results are invalid for patients with abnormal amounts of HbF. Blood transfusions may impact the HbA1c concentration in the patient sample. Estimated Average Glucose 103 mg/dL [facility] Comment:eAG = Estimated ave rage glucose which is %A1C expressed asaverage glucose, using the formula of the [id number] Glucose study (ADAG), Diabetes Care, Vol.31,#8,2007 Blood Venous blood specimen / Unknown 11/15/2024 3:35 PM EDT 11/15/2024 3:35 PM EDT us Faviola SEARS LAB BLOOD ORDERABLES Final Res ult [facility] [address] [place] [phone] documented in this encounter Visit Diagnoses Diagnosis Healthcare maintenance- Primary Encounter for immunization documented in this encounter Additional Health Concerns Assessment Noted Time PHQ-9 Depression Total Score: 0 09/29/19 24 12:07 PM EDT documented as of this encounter Care Teams Chili Pepper Grinder Relationship Specialty Start Date End Date Faviola Roy FNP [address] [place] [address] PCP - General Family Medicine 10/05/21 documented as of this encounter
[2024-11-15 15:37] LABS: MANUAL DIFF FLAG NO
[2024-11-15 16:39] LABS: Hematocrit 39.0 % (37.0-47.0); Hemoglobin 12.8 g/dl (12.0-16.0); Imm Gran Abs Auto 0.03 X10*3/uL (0.00-0.03); Imm Gran Pct Auto 0.3 % (0.0-0.4); Lymphocytes Absolute Auto 3.8 X10*3/uL (1.2-4.9); Mean Corpuscular HGB Conc 32.8 g/dl (31.0-35.0); Mean Corpuscular Hemoglobin 26.6 pg (27.0-33.0); Mean Corpuscular Volume 81.1 fL (80.0-98.0); NRBC Abs Auto 0.000 X10*3/uL (0.0-0.012); NRBC Pct Auto 0.0 /100WBC (0.0-0.2); Platelet Count 359 X10*3/uL (160-400); Red Blood Count 4.81 X10*6/uL (4.20-5.50); White Blood Count 9.4 X10*3/uL (4.8-10.8)
--- OUTSIDE RECORDS SUMMARY | 2024-11-15 17:22 | XMS_ITS | Clinical Summary ---
Author Organization [address] Address [address] [place] [address] Phone Care Team Providers Care Tap Builder Name Role Phone Physician, No Pcp Primary Care Provider Unavaila ble Allergies No known active allergies Medications vitamin iron fum-folic acid 27-0.8 mg per tabletIndication s:Attempting to conceive Take 1 tablet by mouth 1 (one) time each day. 30 each 11 10/05/2024 Active Encounters Date Type Department Care Team Description 10/05/2024 2:30 PM EDT Office Visit Obstetrics and Gynecology - [address] [phone] Key Lizarraga CNM Attempting to conceive (Primary Dx); test negative; Class 2 obesity due to excess calories without serious comorbidity with body mass index (BMI) of 37.0 to 37.9 in adult from Last 3 Months Social History Tobacco Use Types Packs/Day Years Used Date Smoking Tobacco: Never Smokeless Tobacco: Never Tobacco Cessation:Counseling Given: Not Answered Comments No Sex and Gender Information Value Date Recorded Sex Assigned at Not on file Legal Sex Female 1:15 PM EDT Gender Identity Not on file Sexual Orientation Not on file Obstetrics History Para Term AB IAB SAB Ectopic Multiple Livin g Live Births 0 0 0 0 0 0 0 0 Last Filed Vital Signs Vital Sign Reading Time Taken Comments Blood Pressure 132/70 10/05/2024 2:22 PM EDT Pulse 82 10/05/2024 2:22 PM EDT Temperature - - Respiratory Rate - - Oxygen Saturation - - Inhaled Oxygen Concentration - - Weight 84.4 kg (186 lb) 10/05/2024 2:22 PM EDT Height 149.9 cm (4' 11 ) 10/05/2024 2:22 PM EDT Body Mass Index 37.57 10/05/2024 2:22 PM EDT Plan of Treatment Health Maintenance Due Date Last Done Comments Meningococcal B Vaccine (1 of 2 - Standard) 2018 Cervical Cancer Screening: Pap Smear 09/16/2023 Depression Screening 02/11/2024 Cholesterol Screening (Lipid Panel) 08/31/2024 Hepatitis C Screening 08/31/2024 Social Influencers of Health Screening 08/31/2024 Influenza Vaccine (#1) 2024 , 11/28/2021, 12/29/2020, Additional history exists Gonorrhea/Chlamydia Screening 04/09/2025 04/09/2024, 09/09/2022 DTaP,Tdap,and Td Vaccines (8 - Td or Tdap) 04/09/2034 04/09/2024, 11/01/2013, 12/16/2006, Additional history exists RSV Immunization Adult Patients (1 - 1-dose 75+ series) 2077 HIB Vaccines Aged Out 03/21/2003, 08/2003, 2002 No longer eligible based on patient's age to complete this topic IPV Vaccines Completed 12/16/2006, 04/11, 02/16/2003, Additional history exists MMR Vaccines Completed 12/16/2006, 09/20/2003 Varicella Vaccines Completed 02/15/2010, 11/09/2003 HPV Vaccines Completed 06/22/2014, 09/2014, 11/01/2013 Hepatitis A Vaccines Completed 05/03/2016, 09/11/19 16 Meningococcal ACWY Vaccine Completed 12/16/2018, Hepatitis B Vaccines Completed 09/09/2022, 02/13/2022, 12/28/2021, Additional history exists COVID-19 Vaccine Completed 04/09/2024, 11/2023, 03/26/2022, Additional history exists HIV Screening Completed 04/09/2024, 09/09/2022 Pneumococcal Vaccine: Pediatrics (0 to 5 Years) and At-Risk Patients (6 to 49 Years) Aged Out No longer eligible based on patient's age to complete this topic RSV Immunization Patients Under 20 months Aged Out No longer eligible based on patient's age to complete this topic Procedures Procedure Name Priority Date/Time Associated Diagnosis Comments POC , URINE DIAGNOSTIC Routine 10/05/2024 2:14 PM EDT test negative from Last 3 Months Results * (ABNORMAL) POC , urine manually resulted (10/05/2024 2:14 PM EDT) HCG, Ur POC Negative(A ) Negative POC hCG Int QC Pass? Yes Yes Urine Urine specimen obtained by clean catch procedure / Unknown 10/05/2024 2:14 PM EDT Key Lizarraga CNM POINT OF CARE TEST ENTER/EDIT ORDERABLES Edited Result - Final from Last 3 Months Insurance MEDICAID - [place] Care Teams Tap Builder Relationship Specialty Start Date End Date Physician, No Pcp PCP - General 10/01/24
--- OUTSIDE RECORDS SUMMARY | 2024-11-15 17:22 | XMS_ITS | Clinical Summary ---
Author Organization [employer] Address [address] [place] [address] [address] [place] [address] Care Team Providers Care Regulatory Agency Director Name Role Phone Faviola Roy RENU Primary Care Provider [phone] Allergies Active Allergy Reactions Criticality Noted Date Comments Cat Dander 04/10/2024 Aguero Hives,Itching Medium 04/09/2024 Pollen Extract 04/10/2024 Medications multivitamin () 27-0.8 MG tabletIndicatio ns:Encounter for test, result unknown TAKE 1 TABLET BY MOUTH EVERY DAY 90 tablet 1 5 Active ferrous gluconate (Fergon) 324 (38 Fe) MG tablet Take 1 pill every Friday, Friday, and Friday. Take with a full glass of water or Vit C containing juice, and ideally 1 hour before a meal or 2 hours after a meal 36 tablet 5 Active Active Problems Problem Noted Date Diagnosed Date Multiple food allergies 08/10/2024 Overview (08/10/2024): 03/11/24: [facility] - Dr. Sanchez. Sheaal for possible food allergies and seasonal rhinitis. Testing results: positive for aguero. Caution with fresh apple and avocado, cooked forms should be fine. Positive to a variety of environmental allergies - good candidate for immunotherapy after . Healthcare maintenance 10/03/2023 Overview (04/10/2024): Last PE: 09/29/23 Pap: NILM on 09/29/23 Iron deficiency 09/09/2022 Assessment & Plan (08/10/2024 8:20 PM EDT): Previously tx with ferrous sulfate Currently off supplement, plan to repeat CBC and iron studies Cont iron rich diet Assessment & Plan (04/10/2024 4:36 PM EST): Iron supplement (Sep 2023) Switched formulation from ferrous gluconate to ferrous sulfate, pt tolerating better Advised to recheck iron studies, if improved and no anemia, can DC iron supplementation Assessment & Plan (10/03/2023 6:59 PM EDT): Iron supplement (Sep 2023) Switched formulation from ferrous gluconate to ferrous sulfate, pt tolerating better Advised to recheck iron studies, if improved and no anemia, can DC iron supplementation Assessment & Plan (07/24/2023 11:53 AM EDT): Continues on iron supplement (Sep 2023) Switch formulation from ferrous gluconate to ferrous sulfate to see if pt tolerates formulation better Assessment & Plan (09/17/2022 4:36 PM EDT): Continues on ferrous gluconate 3x/week Recheck CBC and iron studies Allergic rhinitis [...] Encounters Date Type Department Care Team Description 11/12/2024 2:45 PM EDT Office Visit [facility] [address] [place] [address] Faviola Roy FNP Healthcare maintenance (Primary Dx); Encounter for immunization 11/12/2024 Travel 11/05/2024 Patient Outreach [facility] [address] [place] [address] Faviola Roy FNP Pre-visit Planning (SDOH negative, Tobacco screening negative. ) 09/06/2024 Telephone [facility] [address] [place] [address] Faviola Roy FNP Results 09/01/2024 Telephone [facility] [address] [place] [address] Faviola Roy FNP Lab Orders from Last 3 Months Immunizations Immunization Administration Dates Next Due DTaP 12/16/2006, 4,05/03/2003,02/16,2002 HPV, Quadrivalent 06/22/2014,02/17/2014,11/02/19 14 Hep A, ped/adol, 2 dose 05/03/2016,09/11/2015 Hep B, Adolescent or Pediatric 05/03/2003,2002,2002 Hep B, adult 09/09/2022,02/13/2022,12/28/2021 Hib (HbOC) 03/21/2003,02/16/2003,2002 IPV 12/16/2006, 4,02/16/2003,11/25 Influenza injectable quadriv alent IIV4 with preservative 10/28/2016,11/03/2015 Influenza injectable quadriv alent preservative free 11/28/2021,12/29/2020,01/31/2020,12/16,12/10/2017,10/28/2016,11/03/2015 Influenza live intranasal qu adrivalent LIAV4 11/01/2013 Influenza, seasonal, injecta ble, preservative free 11/12/2024,04/09/2024 MMR 12/16/2006,09/20/2003 Meningococcal MCV4P [id number]-135 12/16/2018,11/02/19 14 [...] Q2 Not on file 11/05/2024 Comments No Intention Date Recorded Wants to become (finding) 04/09 Sex and Gender Information Value Date Recorded [...] Mass Index 37.28 11/12/2024 1:58 PM EDT Plan of Treatment Health Maintenance Due Date Last Done Comments Alcohol/Substance Use Screening 2014 Meningococcal B Vaccine (1 of 2 - Standard) 2018 Depression Screening 09/28/2024 09/29/2023, 09/29/19 Chlamydia and Gonorrhea Screening 04/09/2025 04/09/2024, 09/29/2023, 09/09/2022, Additional history exists Family Planning (PISQ) 04/10/2025 04/10/2024 Tobacco Screening 04/10/2025 04/10/2024 Lipid Panel 05/05/2025 05/05/2020 Disability Screening 08/06/2025 08/06/2024 SDOH Screening 11/05/2025 11/05/2024 Pap Smear 09/28/2026 09/29/2023 DTaP/Tdap/Td Vaccines (8 [...] 09/11/19 16 Meningococcal Vaccine Completed 12/16/2018, 014 Hepatitis B Vaccines Completed 09/09/2022, 02/13/2022, 12/28/2021, Additional history exists COVID-19 Vaccine Completed 04/09/2024, 11/2023, 03/26/2022, Additional history exists HIV Screening Completed 04/09/2024, 09/09/2022 Hepatitis C Screening Completed 04/09/2024 , 09/09/2022, 02/05/2021 Influenza Vaccine Completed 11/12/2024, , 11/28/2021, Additional history exists Pneumococcal Vaccine: Pediatrics (0 to 5 Years) and At-Risk Patients (6 to 49) Years Aged Out No longer eligible based on [...] Routine 11/15/2024 3:35 PM EDT Healthcare maintenance HCG, TOTAL, QN Routine 09/02/2024 2:42 PM EDT Encounter for test, result unknown FERRITIN Routine 09/02/2024 2:42 PM EDT Iron deficiency IRON AND TOTAL IRON BINDING CAPACITY Routine 09/02/2024 2:42 PM EDT Iron deficiency CBC WITH AUTO DIFFERENTIAL Routine 09/02/2024 2:42 PM EDT Iron deficiency CHLAMYDIA/N. GONORRHOEAE RNA, TMA, UROGENITAL Routine 04/09/2024 3:40 PM EST Screening examination for STI HEPATITIS C VIRAL RNA, QUANTITATIVE, REAL-TIME PCR Routine 04/09/2024 3:37 PM EST Screening examination for STI HIV 1/2 ANTIGEN/ANTIBODY, FOURTH GENERATION W/RFL Routine 04/09/2024 3:37 PM EST Screening examination for STI THINPREP IMAGING SYSTEM PAP Routine 09/29/2023 11:47 AM EDT Screening for cervical cancer LIPID PANEL, STANDARD Routine 05/05/2020 8:33 AM EDT from Last 3 Months or Most Recently Relevant to Health Maintenance Results * (ABNORMAL) CBC auto differential (11/15/2024 3:35 PM EDT) Only the most recent of2 resultswithin the time period is included. White Blood Count 9.4 4.8 - 10.8 X10*3/uL LABS Red Blood Count 4.81 4.20 - 5.50 X10*6/uL LABS Hemoglobin 12.8 12.0 - 16.0 g/dl LABS Hematocrit 39.0 37.0 - 47.0 % LABS Mean Corpuscular Volume 81.1 80.0 - 98.0 fL LABS Mean Corpuscular Hemoglobin 26.6(L) 27.0 - 33.0 pg LABS Mean Corpuscular HGB Conc 32.8 31.0 - 35.0 g/dl LABS Red Cell Distribution Width 13.1 11.0 - 16.0 % LABS Platelet Count 359 160 - 400 X10*3/uL LABS Mean Platelet Volume 10.3 9.4 - 12.3 fL LABS Neutrophils Percent Auto 48.2 45 - 73 % LABS Imm Gran Pct Auto 0.3 0.0 - 0.4 % LABS Lymphocytes Percent Auto 40.4(H) 20 - 40 % LABS Monocytes Percent Auto 7.8 2 - 11 % LABS Eosinophils Percent Auto 2.9 0 - 4 % LABS Basophils Percent Auto 0.4 0 - 2 % LABS NRBC Pct Auto 0.0 0.0 - 0.2 /100WBC LABS Neutrophils Absolute Auto 4.5 2.0 - 8.3 x10*3/uL LABS Imm Gran Abs Auto 0.03 0.00 - 0.03 X10*3/uL LABS Lymphocytes Absolute Auto 3.8 1.2 - 4.9 X10*3/uL LABS Monocytes Absolute Auto 0.7 0.1 - 1.2 X10*3/uL LABS Eosinophils Absolute Auto 0.3 0.0 - 0.4 X10*3/uL LABS Basophils Absolute Auto 0.0 0.0 - 0.2 X10*3/uL LABS NRBC Abs Auto 0.000 0.0 - 0.012 X10*3/uL LABS Blood Venous blood specimen / Unknown 11/15/2024 3:35 PM EDT 11/15/2024 3:35 PM EDT us Faviola Roy CHEMISTRY FACULTY MEMBER LAB BLOOD ORDERABLES Final Res ult LABS [address] [place] [phone] * Hemoglobin A1c (11/15/2024 3:35 PM EDT) Hemoglobin A1c 5.2 <6.0 % [facility] Comment:Hemoglobin A1C Refer ence Range Adults: 4.8 - 6.0 % Non diabetic: < 6.0 % Goal: < 7.0 %Additional Action Suggested: > 8.0 %Note: Hemoglobin A1c results are invalid for patients with abnormal amounts of HbF. Blood transfusions may impact the HbA1c concentration in the patient sample. Estimated Average Glucose 103 mg/dL LABS Comment:eAG = Estimated ave rage glucose which is %A1C expressed asaverage glucose, using the formula of the G6A-PxnqwnbWbfkolc Glucose study (ADAG), Diabetes Care, Vol.31,#8,2007 Blood Venous blood specimen / Unknown 11/15/2024 3:35 PM EDT 11/15/2024 3:35 PM EDT Faviola Roy CHEMISTRY FACULTY MEMBER LAB BLOOD ORDERABLES Final Res ult Performing Organization Address [facility] Co de Phone Number LABS [address] [place] [phone] * Iron And Total Iron Binding Capacity (09/02/2024 2:42 PM EDT) Iron 51 30 - 160 mcg/dL LABS Total Iron Binding Capacity 306 228 - 428 mcg/dL LABS Percent Iron Saturation 17 15 - 50 % LABS Unsaturated Iron Binding 255 ug/dL LABS Blood Venous blood specimen / Unknown 09/02/2024 2:42 PM EDT 09/02/2024 4:20 PM EDT Faviola Roy CHEMISTRY FACULTY MEMBER LAB BLOOD ORDERABLES Final Res ult Performing Organization Address [facility] de Phone Number LABS [address] [place] [address] [phone] * hCG, Total, Quantitative (09/02/2024 2:42 PM EDT) Pathologist [facility] HCG Quantitative <2 mIU/mL [facility] Comment:Weeks post LMP Appro ximate hCG(Last Menstrual Period) Range (mIU/ml)3 - 4 weeks 9 - 1304 - 5 weeks 75 - 2,6005 - 6 weeks 850 - 20,8006 - 7 weeks 4000 - 100,2007 - 12 weeks 11,500 - 289,04705 - 16 weeks 18,300 - 137,97725 - 29 weeks (2nd trimester) 1,400 - 53,82484 - 41 weeks (3rd trimester) 940 - 60,000The Siu B- hCG assay is used for the early detection ofpregnancy; it cannot be used to diagnose any conditionunrelated to . If a B-hCG level is not supportedby the clinical evidence, results should be confirmed by analternative method (qualitative urine hCG, for example). Blood Venous blood specimen / Unknown 09/02/2024 2:42 PM EDT 09/02/2024 4:20 PM EDT Faviola Roy [facility] LAB BLOOD ORDERABLES Final Res ult Performing Organization Address [facility]/ZIP Co de Phone Number LABS [address] [place] [phone] * Ferritin (09/02/2024 2:42 PM EDT) Pathologist [facility] Ferritin 17 10 - 122 ng/mL LABS Blood Venous blood specimen / Unknown 09/02/2024 2:42 PM EDT 09/02/2024 4:20 PM EDT [facility] LAB BLOOD ORDERABLES Final Res ult Performing Organization Address [facility] Co de Phone Number LABS [address] [place] [phone] * Chlamydia/N. Gonorrhoeae RNA, TMA, Urogenitial (04/09/2024 3:40 PM EST) [facility] CT PCR NOT DETECTED Not Detect. LABS Comment:A not detected test result does [...] psychologicalconsequences. NG PCR NOT DETECTED Not Detect. LABS Comment:A not detected test result does [...] lead to adverse medical, social or psychologicalconsequences. Urine (Urine, Random) 04/09/2024 3:40 PM EST 04/09/2024 5:47 PM EST Narrative LABS - 04/09/2024 7:38 PM EST Urine Faviola Roy [facility] LAB MICROBIOLOGY - GENERAL ORD ERABLES Final Result Performing Organization Address [facility] de Phone Number LABS [address] [place] [phone] * Hepatitis C Viral RNA, Quantitative, Real-Time PCR (04/09/2024 3:37 PM EST) Hepatitis C Viral Load <15 NOT DETECTED NOT DETECTED IU/mL LABS HCV Log PCR <1.18 NOT DETECTED NOT DETECTED Log IU/mL LABS Comment:For additional infor momo, please refer tohttp://education.[employer]/faq/JZW25g7(This link is being provided for informational/educational purposes only.)THIS TEST WAS PERFORMED AT:[employer] [place] [id number] SIM MD Blood 04/09/2024 3:37 PM EST 04/09/2024 5:47 PM EST Faviola Roy [facility] LAB BLOOD ORDERABLES Final Res ult Performing Organization Address [facility] Co de Phone Number LABS [address] [place] [address] [phone] * HIV-1/2 Antigen and Antibodies, Fourth Generation, with Reflexes (04/09/2024 3:37 PM EST) HIV AB/AG Nonreactive Nonreactive [facility] Comment:HIV-1 p24 Ag and/or HIV-1/HIV-2 Ab not detected.A test result that is nonreactive does not exclude thepossibility of exposure to or infection with HIV-1 and/orHIV-2. Nonreactive results in this assay for individualswith prior exposure to HIV-1 and/or HIV-2 may be due toantigen and antibody levels that are below the limit ofdetection of this assay.The Sensdata HIV Ag/Ab Combo assay result andsupplemental assay results should be interpreted inconjunction with the patient's clinical presentation,history and other laboratory results. If the results areinconsistent with clinical evidence, additional testing issuggested to confirm the result. Blood Venous blood specimen / Unknown 04/09/2024 3:37 PM EST 04/09/2024 5:47 PM EST Faviola Roy [facility] LAB BLOOD ORDERABLES Final Res ult Performing Organization Address [facility] Co de Phone Number LABS [address] [place] [phone] * Pap Smear (09/29/2023 11:47 AM EDT) SOURCE: SEE NOTE LABS Comment:None given Report Status: TNP [facility] Clinical Information: SEE NOTE LABS Comment:None given LMP: SEE NOTE LABS Comment:NONE GIVEN Prev. PAP: SEE NOTE LABS Comment:NONE GIVEN Prev. BX: SEE NOTE LABS Comment:NONE GIVEN Statement Of Adequacy: SEE NOTE LABS Comment:Satisfactory for jesus luation.Endocervical/transformation zone componentpresent. General Categorization: [facility] Interpretation/Result: SEE NOTE LABS Comment:Cytology Results: Ne gative for intraepitheliallesion or malignancy. Cytology Comment SEE NOTE [facility] Comment:This Pap test has be en evaluated with computerassisted technology. Integrated Circuit Ic Layout Designer: SEE NOTE [facility] Comment:CMB, CT(ASCP) CT Scr eening Location: [employer] [address] preparation performed at: [facility], [address] [place] [id number] CLIA No. [id number] Review [employer] Ic Layout Designer: [facility] Pathologist [facility] PAP Infection [facility] See Note SEE NOTE LABS Comment:EXPLANATORY NOTE:The Pap is a screening test for cervical cancer. It isnot a diagnostic test and is subject to false negativeand false positive results. It is most reliable when asatisfactory sample, regularly obtained, is submittedwith relevant clinical findings and history, and whenthe Pap result is evaluated along with historic andcurrent clinical information.THIS TEST WAS PERFORMED AT:[employer] [address] [id number] MERATI,MD Pap Vial Vaginal structure / Unknown 09/29/2023 11:47 AM EDT 09/29/2023 7:13 PM EDT Narrative LABS - 10/03/2023 2:51 PM EDT SEE SCANNED RESULTS IN EMR us Faviola Roy [facility] LAB PATHOLOGY ORDERABLES Final Result [facility] [address] [place] [phone] * LIPID PANEL, STANDARD (05/05/2020 8:33 AM EDT) Chol/HDLC Ratio 2.1 <5.0 (calc) [facility] Cholesterol, Total 117 <170 mg/dL [facility] HDL Cholesterol 55 >45 mg/dL [facility] LDL Cholesterol 51 <110 mg/dL (calc) [facility] Comment: LDL-C is now calculated using the Phong calculation, which is a validated novel method providing better accuracy than the Friedewald equation in the estimation of LDL-C. Kaleb WOOTEN et al. ARNOLD. 2013;310(19): 1950-7469 (http://education.[employer].sigmacare/faq/SQQ428) Non-HDL Cholesterol 62 <120 mg/dL (calc) [facility] Comment: For patients with diabetes plus 1 major ASCVD risk factor, treating to a non-HDL-C goal of <100 mg/dL (LDL-C of <70 mg/dL) is considered a therapeutic option. Triglycerides 40 <90 mg/dL [facility] 05/05/2020 8:33 AM EDT us Tigist Andrews MD LAB BLOOD ORDERABLES Final Re sult [facility] [address] from Last 3 Months or Most Recently Relevant to Health Maintenance Insurance [facility] C3 Care Teams Regulatory Agency Director Relationship Specialty Start Date End Date Faviola Roy FNP [address] [place] [phone] PCP - General Family Medicine 10/05/21
--- OUTSIDE RECORDS SUMMARY | 2024-11-15 17:22 | XMS_ITS | Encounter Summary ---
Author Organization [email or web address] Address [address] [facility] [address]t [place] [address] Care Team Providers Care Aerospace Engineer Officer Armament Name Role Phone Faviola Roy RENU Primary Care Provider [phone] Encounter Details Date Type Department Care Team (Latest Contact Info) Description 11/12/2024 Travel Social History Tobacco Use Types Packs/Day [...] as of this encounter Plan of Treatment Not on file documented as of this encounter Visit Diagnoses Not on filedocumented in this encounter Additional Health Concerns Assessment Noted Time PHQ-9 Depression Total Score: 0 09/29/19 24 12:07 PM EDT documented as of this encounter Care Teams Aerospace Engineer Officer Armament Relationship Specialty Start Date End Date Faviola Roy FNP [address] [place] [phone] PCP - General Family Medicine 10/05/21 documented as of this encounter
--- OUTSIDE RECORDS SUMMARY | 2024-11-15 17:22 | XMS_ITS | Encounter Summary ---
Author Organization [employer] Address [address] [place] [address] [address] [place] [address] Care Team Providers Care Immigration Manager Name Role Phone Faviola Roy Primary Care Provider [phone] Encounter Details Date Type Department Care Team (Late st Contact Info) Description 09/11/2022 Orders Only [facility] [address] [place] [address] Faviola Roy FNP [address] [place] [address] Dietary iron deficiency without anemia (Primary Dx) [...] as of this encounter Plan of Treatment Scheduled Orders [...] EDT) Ferritin 13 10 - 122 ng/mL [facility] 06/10/2023 12:0 3 PM EDT 06/10/2023 3:56 PM EDT us Faviola Phalen DIRECTOR WORK LAB BLOOD ORDERABLES Final Res ult Performing Organization Address [facility]/ZIP Co de Phone Number [facility] [address] [place] [address] [phone] * Iron And Total Iron Binding Capacity (06/10/2023 12:03 PM EDT) Iron 105 30 - 160 mcg/dL [facility] Total Iron Binding Capacity 377 228 - 428 mcg/dL [facility] Percent Iron Saturation 28 15 - 50 % [facility] Unsaturated Iron Binding 272 ug/dL [facility] 06/10/2023 12:0 3 PM EDT 06/10/2023 3:56 PM EDT us Faviola Phalen DIRECTOR WORK LAB BLOOD ORDERABLES Final Res ult Performing Organization Address [facility]/ZIP Co de Phone Number [facility] [address] [place] [phone] * (ABNORMAL) CBC auto differential (06/10/2023 12:03 PM EDT) White Blood Count 9.1 4.8 - 10.8 X10*3/uL [facility] Red Blood Count 5.07 4.20 - 5.50 X10*6/uL [facility] Hemoglobin 14.0 12.0 - 16.0 g/dl [facility] Hematocrit 43.5 37.0 - 47.0 % [facility] Mean Corpuscular Volume 85.8 80.0 - 98.0 fL [facility] Mean Corpuscular Hemoglobin 27.6 27.0 - 33.0 pg [facility] Mean Corpuscular HGB Conc 32.2 31.0 - 35.0 g/dl [facility] Red Cell Distribution Width 12.4 11.0 - 16.0 % [facility] Platelet Count 405(H) 160 - 400 X10*3/uL [facility] Mean Platelet Volume 9.9 9.4 - 12.3 fL [facility] Neutrophils Percent Auto 49.7 45 - 73 % [facility] Imm Gran Pct Auto 0.2 0.0 - 0.4 % [facility] Lymphocytes Percent Auto 38.9 20 - 40 % [facility] Monocytes Percent Auto 7.0 2 - 11 % [facility] Eosinophils Percent Auto 3.8 0 - 4 % [facility] Basophils Percent Auto 0.4 0 - 2 % [facility] NRBC Pct Auto 0.0 0.0 - 0.2 /100WBC [facility] Neutrophils Absolute Auto 4.5 2.0 - 8.3 x10*3/uL [facility] Imm Gran Abs Auto 0.02 0.00 - 0.03 X10*3/uL [facility] Lymphocytes Absolute Auto 3.5 1.2 - 4.9 X10*3/uL [facility] Monocytes Absolute Auto 0.6 0.1 - 1.2 X10*3/uL [facility] Eosinophils Absolute Auto 0.3 0.0 - 0.4 X10*3/uL [facility] Basophils Absolute Auto 0.0 0.0 - 0.2 X10*3/uL [facility] NRBC Abs Auto 0.000 0.0 - 0.012 X10*3/uL [facility] 06/10/2023 12:0 3 PM EDT 06/10/2023 1:14 PM EDT us Faviola SEARS LAB BLOOD ORDERABLES Final Res ult [facility] [address] [place] [phone] documented in this encounter Visit Diagnoses Diagnosis Dietary iron deficiency without anemia- Primary documented in this encounter Additional Health Concerns Assessment Noted Time PHQ-9 Depression Total Score: 0 02/13/19 23 1:59 PM EST documented as of this encounter Care Teams Immigration Manager Relationship Specialty Start Date End Date Faviola Roy FNP [address] [place] [address] PCP - General Family Medicine 10/05/21 documented as of this encounter
[2024-11-15 17:26] LABS: CT PCR Urine NOT DETECTED (Not Detect.); NG PCR Urine NOT DETECTED (Not Detect.)
[2024-11-15 18:04] LABS: Alanine Aminotransferase 17 U/L (0-31); Albumin Level 4.1 g/dL (3.5-5.0); Alkaline Phosphatase 62 U/L (39-117); Anion Gap 10 (12-20); Aspartate Amino Transferase 27 U/L (5-31); Blood Urea Nitrogen 12 mg/dL (9-16); Calcium 9.2 mg/dL (8.4-10.2); Carbon Dioxide 25 mmol/L (22-29); Chloride 108 mmol/L (96-108); Estimated Glomerular Filt Rate > 60; Iron 121 mcg/dL (30-160); Percent Iron Saturation 42 % (15-50); Potassium 4.0 mmol/L (3.3-5.1); Sodium 139 mmol/L (135-145); Total Iron Binding Capacity 288 mcg/dL (228-428); Total Protein 7.4 g/dL (6.5-8.0); Unsaturated Iron Binding 167 ug/dL
[2024-11-15 18:22] LABS: Ferritin 29 ng/mL (10-122); Thyroid Stimulating Hormone 1.12 uIU/mL (0.32-4.0)
[2024-11-17 20:08] LABS: HCV Log PCR <1.18 NOT DETECTED Log IU/mL (NOT DETECTED); HepC Viral Load <15 NOT DETECTED IU/mL (NOT DETECTED)
[2024-11-21 08:28] LABS: VITAMIN D (1,25 OH) D3 65 pg/mL; Vit D (1,25-Dihydroxy) Total 65 pg/mL (18-72); Vitamin D (1,25 OH) D2 <8 pg/mL
== END 2024-11-15 14:58 | disposition home or self-care (01) ==
LOC: HO.LAB 14:57
PROVIDERS: PCP Registered Nurse; Visit Provider Registered Nurse
DX: Z00.00 Encounter for general adult medical examination without abnormal findings (principal); Z11.3 Encounter for screening for infections with a predominantly sexual mode of transmission
CPT/HCPCS: 80053; 82652; 82728; 83036; 83540; 84443; 85025; 86592; 87491; 87522; 87591

== ENCOUNTER 2024-11-30 15:02 | Outpatient (REF) | payer MEDICAID, SELFPAY ==
[2024-11-30 17:20] LABS: Cholesterol 147 mg/dL (<200); HDL Cholesterol 59 mg/dL (>40); Triglycerides 73 mg/dL (<150)
--- OUTSIDE RECORDS SUMMARY | 2024-11-30 20:16 | XMS_ITS | Clinical Summary ---
Author Organization [address] Address [address] [place] [address] Phone Care Team Providers Care Measurement Coordinator Name Role Phone Physician, No Pcp Primary Care Provider Unavaila ble Allergies No known active allergies Medications vitamin iron fum-folic acid 27-0.8 mg per tabletIndication s:Attempting to conceive Take 1 tablet by mouth 1 (one) time each day. 30 each 11 10/05/2024 Active Encounters Date Type Department Care Team Description 10/05/2024 2:30 PM EDT Office Visit Obstetrics and Gynecology - [address] [phone] Key Lizarraga CNM Attempting to conceive (Primary [...] Months Insurance MEDICAID - [place] Care Teams Measurement Coordinator Relationship Specialty Start Date End Date Physician, No Pcp PCP - General 10/01/24
--- OUTSIDE RECORDS SUMMARY | 2024-11-30 20:16 | XMS_ITS | Encounter Summary ---
Author Organization [employer] Address [address] [place] [address] 7 [place] [address] Care Team Providers Care Private Household Worker Name Role Phone Faviola Roy Primary Care Provider [phone] Encounter Details Date Type Department Care Team (Late st Contact Info) Description 09/11/2022 Orders Only [facility] [address] [place] [address] Faviola Roy FNP [address] [place] [address] Dietary iron deficiency without anemia (Primary Dx) [...] EDT) Ferritin 13 10 - 122 ng/mL [facility] 06/10/2023 12:0 3 PM EDT 06/10/2023 3:56 PM EDT us Faviola Phalen [employer] LAB BLOOD ORDERABLES Final Res ult Performing Organization Address [facility]/ZIP Co de Phone Number [facility] [address] [place] [address] [phone] * Iron And Total Iron Binding Capacity (06/10/2023 12:03 PM EDT) Iron 105 30 - 160 mcg/dL [facility] Total Iron Binding Capacity 377 228 - 428 mcg/dL [facility] Percent Iron Saturation 28 15 - 50 % [facility] Unsaturated Iron Binding 272 ug/dL [facility] 06/10/2023 12:0 3 PM EDT 06/10/2023 3:56 PM EDT us Faviola Phalen [employer] LAB BLOOD ORDERABLES Final Res ult Performing Organization Address [facility]/ZIP Co de Phone Number [facility] [address] [place] [phone] * (ABNORMAL) CBC auto differential (06/10/2023 12:03 PM EDT) White Blood Count 9.1 4.8 - 10.8 X10*3/uL [facility] Red Blood Count 5.07 4.20 - 5.50 X10*6/uL [facility] Hemoglobin 14.0 12.0 - 16.0 g/dl [facility] Hematocrit 43.5 37.0 - 47.0 % [facility] Mean Corpuscular Volume 85.8 80.0 - 98.0 fL [facility] Mean Corpuscular Hemoglobin 27.6 27.0 - 33.0 pg [facility] Mean Corpuscular HGB Conc 32.2 31.0 - 35.0 g/dl [facility] Red Cell Distribution Width 12.4 11.0 - 16.0 % [facility] Platelet Count 405(H) 160 - 400 X10*3/uL [facility] Mean Platelet Volume 9.9 9.4 - 12.3 fL [facility] Neutrophils Percent Auto 49.7 45 - 73 % [facility] Imm Gran Pct Auto 0.2 0.0 - 0.4 % [facility] Lymphocytes Percent Auto 38.9 20 - 40 % [facility] Monocytes Percent Auto 7.0 2 - 11 % [facility] Eosinophils Percent Auto 3.8 0 - 4 % [facility] Basophils Percent Auto 0.4 0 - 2 % [facility] NRBC Pct Auto 0.0 0.0 - 0.2 /100WBC [facility] Neutrophils Absolute Auto 4.5 2.0 - 8.3 x10*3/uL [facility] Imm Gran Abs Auto 0.02 0.00 - 0.03 X10*3/uL [facility] Lymphocytes Absolute Auto 3.5 1.2 - 4.9 X10*3/uL [facility] Monocytes Absolute Auto 0.6 0.1 - 1.2 X10*3/uL [facility] Eosinophils Absolute Auto 0.3 0.0 - 0.4 X10*3/uL [facility] Basophils Absolute Auto 0.0 0.0 - 0.2 X10*3/uL [facility] NRBC Abs Auto 0.000 0.0 - 0.012 X10*3/uL [facility] 06/10/2023 12:0 3 PM EDT 06/10/2023 1:14 PM EDT us Faviola SEARS LAB BLOOD ORDERABLES Final Res ult [facility] [address] [place] [address] [phone] documented in this encounter Visit Diagnoses Diagnosis Dietary iron deficiency without anemia- Primary documented in this encounter Additional Health Concerns Assessment Noted Time PHQ-9 Depression Total Score: 0 02/13/19 23 1:59 PM EST documented as of this encounter Care Teams Private Household Worker Relationship Specialty Start Date End Date Faviola Roy FNP [address] [place] [address] PCP - General Family Medicine 10/05/21 documented as of this encounter
--- OUTSIDE RECORDS SUMMARY | 2024-11-30 20:16 | XMS_ITS | Encounter Summary ---
Author Organization [employer] Address [address] [place] [address] [address] [place] [address] Care Team Providers Care Development Architect Name Role Phone Faviola Roy Primary Care Provider [phone] Encounter Details Date Type Department Care Team (Latest Contact Info) Description 11/24/2024 Results Follow-Up [facility] [address] [place], [place] [phone] Faviola Roy FNP [address] [place] [address] Hemoglobin A1c, Comprehensive Metabolic Panel, CBC auto differential, Additional followed-up results: 5 Social History Tobacco Use Types Packs/Day Years Used Date Smoking Tobacco: Never Passive Smoke Exposure: Never Smokeless Tobacco: Never Alcohol Use Standard Drinks/Week Comments Never 0 (1 standard drink = 0.6 oz pur e alcohol) Depression Answer Date Recorded Patient Health Questionnaire-9 Score 0 11/16/2024 Patient Health Questionnaire-9 Score 0 11/16/2024 Last PHQ-9: Questionnaire Data Not on file 1 Housing Stability Answer Date Recorded What is [...] Date Recorded Patient Health Questionnaire-2 Score 0 11/16/2024 Internet Access Answer Date Recorded Internet Access [...] encounter Miscellaneous Notes * Telephone Encounter - Nadya Pollock RN - 11/29/2024 2:13 PM EDT TC to pt and informed of needing to complete additional blood work. Pt verbalized understanding andagreement with plan. * Telephone Encounter - Nadya Pollock RN - 11/29/2024 2:10 PM EDT TC to [facility] lab to inquire about test for lipids and HIV. Lab reports does not have lab order on their end. Advised will re order and fax over. * Telephone Encounter - Nadya Pollock RN - 11/29/2024 2:09 PM EDT ----- Message from Faviola Roy sent at 11/24/2024 7:10 PM EDT ----- Please call to review labs: Overall, blood work looked great. Screening for liver and kidney function, blood counts, diabetes, and thyroid function was normal. Iron level and Vit D wnl. Rec continuation of iron supplement. Testing for Hepatitis C, syphilis, gonorrhea, and chlamydia was negative. I do not see the results for the cholesterol and HIV test, which are typically back by now. Please check with pt/lab to see if results are available. Thank you! ----- Message ----- From: Interface, Lab Results In Sent: 11/15/2024 4:40 PM EDT To: RENU Guevara documented in this encounter Plan of Treatment Scheduled Orders Name Type Priority Associated Diagnoses Orde r Schedule HIV-1/2 Antigen and Antibodies, Fourth Generation, with Reflexes Lab Routine Healthcare maintenance Expected: 11/29/2024 (Approximate), Expires: 11/29/2025 documented as of this encounter Procedures Procedure Name Priority Date/Time Associated Diagnosis Comments LIPID PANEL, STANDARD Routine 11/30/2024 3:07 PM EDT Healthcare maintenance documented in this encounter Results * Lipid Panel, Standard (11/30/2024 3:07 PM EDT) Triglycerides 73 <150 mg/dL [facility] Comment:Desirable Triglyceri de: less than 150 mg/dLBorderline High Triglyceride 150-199 mg/dLHigh Triglyceride: 200-499 mg/dLVery High Triglyceride: greater than or equal to 5OO mg/dL Cholesterol 147 <200 mg/dL [facility] Comment:Desirable Cholestero l: less than 200 mg/dLBorderline High Cholesterol: 200-239 mg/dLHigh Cholesterol: greater than 239 mg/dL LDL Cholesterol Calculated 74 <100 mg/dL [facility] Comment:Desirable LDL: less than 100 mg/dLNear Optimal/Above Optimal LDL: 110- 129 mg/dLBorderline High LDL: 130-159 mg/dLHigh LDL: 160-189 mg/dLVery High LDL: greater than or equal to 190 mg/dL HDL Cholesterol 59 >40 mg/dL [facility] Comment:Desirable HDL: great er than 40 mg/dL Note: This HDL assay may give artificially low results in patients with liver disease. Blood Venous blood specimen / Unknown 11/30/2024 3:07 PM EDT 11/30/2024 5:03 PM EDT Faviola SEARS LAB BLOOD ORDERABLES Final Res ult [facility] [address] [place] [address] [phone] documented in this encounter Visit Diagnoses Diagnosis Healthcare maintenance documented in this encounter Additional Health Concerns Assessment Noted Time PHQ-9 Depression Total Score: 0 11/17/19 25 6:08 PM EDT documented as of this encounter Care Teams Development Architect Relationship Specialty Start Date End Date Favoila Roy FNP [address] [place] [address] PCP - General Family Medicine 10/05/21 documented as of this encounter
--- OUTSIDE RECORDS SUMMARY | 2024-11-30 20:16 | XMS_ITS | Clinical Summary ---
Author Organization [email or web address] Address [address] [place] [address] [address] [place] [address] Care Team Providers Care Quarry Supervisor Dimension Stone Name Role Phone Faviola Roy RENU Primary Care Provider [phone] Allergies Active Allergy Reactions Criticality Noted Date [...] 2 hours after a meal 36 tablet Active Active Problems Problem Noted Date Diagnosed Date Multiple food allergies 08/10/2024 Overview (08/10/2024): 03/11/24: [facility] - Dr. Sanchez. Sheaal for possible food allergies and seasonal rhinitis. Testing results: positive for aguero. Caution with fresh apple and avocado, cooked forms should be fine. Positive to a variety of environmental allergies - good candidate for immunotherapy after . Healthcare maintenance 10/03/2023 Overview (11/16/2024): Last PE: 11/12/24 Pap: NILM on 09/29/23 Iron deficiency 09/09/2022 Overview (11/16/2024): Lab Results Component Value Date HGB 12.8 11/15/2024 HGB 13.1 05/31/2022 HCT 39.0 11/15/2024 FERRITIN 29 11/15/2024 FERRITIN 9 (L) 05/31/2022 Assessment & Plan (11/16/2024 6:06 PM EDT): Goal for ferritin >/= 30 ng/mL during Cont with iron supplement 3x/week Assessment & Plan (08/10/2024 8:20 PM EDT): [...] Date Resolved Date Adjustment disorder 01/14/2022 09/10/19 Assessment & Plan (02/13/2022 10:48 AM EST): -Not currently using any tx and reports symptoms well controlled Encounters Date Type Department Care Team Description 11/24/2024 Results Follow-Up [facility] [address] [place] [address] Faviola Roy FNP Hemoglobin A1c, Comprehensive Metabolic Panel, CBC auto differential, Additional followed-up results: 5 11/23/2024 Telephone [facility] [address] [place] [address] Faviola Roy FNP Results 11/15/2024 Orders Only [facility] [address] [place] [address] Faviola Roy FNP 11/12/2024 2:45 PM EDT Office Visit [facility] [address] [place] [address] Faviola Roy FNP Encounter for routine history and physical examination of adult (Primary Dx); Encounter for immunization; Healthcare maintenance; Dietary counseling; Exercise counseling; Multiple food allergies; Iron deficiency 11/12/2024 Travel 11/05/2024 Patient Outreach [facility] [address] [place] [address] Faviola Roy FNP Pre-visit Planning (SDOH negative, Tobacco screening negative. ) 09/06/2024 Telephone [facility] [address] [place] [address] [phone] Faviola Roy FNP Results 09/01/2024 Telephone [facility] [address] [place] [address] Faviola Roy FNP Lab Orders from Last [...] Intention Date Recorded Wants to become (finding) 11/12 Sex and Gender Information Value Date Recorded [...] Vaccine (1 of 2 - Standard) 2018 Chlamydia and Gonorrhea Screening 04/09/2025 04/09/2024, 09/29/2023, 09/09/2022, Additional history exists Disability Screening 08/06/2025 08/06/2024 SDOH Screening 11/05/2025 11/05/2024 Alcohol/Substance Use Screening 11/16/2025 11/16/2024 Depression Screening 11/16/2025 11/16/2024, 11/17/19 Family Planning (PISQ) 11/16/2025 11/16/2024 Tobacco Screening 11/16/2025 11/16/2024 Pap Smear 09/28/2026 09/29/2023 Lipid Panel 11/30/2029 11/30/2024, 05/05/2020 DTaP/Tdap/Td Vaccines (8 - Td or Tdap) [...] history exists HIV Screening Completed 04/09/2024, 09/09/2022 Influenza Vaccine Completed 11/12/2024, , 11/28/2021, Additional history exists Hepatitis C Screening Completed 11/15/2024 , 04/09/2024, 09/09/2022, Additional history exists Pneumococcal Vaccine: Pediatrics (0 [...] Routine 11/30/2024 3:07 PM EDT Healthcare maintenance VITAMIN D 1,25 DIHYDROXY Routine 11/15/2024 3:35 PM EDT TSH Routine 11/15/2024 3:35 PM EDT RPR (MONITOR) W/REFL TITER Routine 11/15/2024 3:35 PM EDT Healthcare maintenance HEPATITIS C VIRAL RNA, QUANTITATIVE, REAL-TIME PCR Routine 11/15/2024 3:35 PM EDT Healthcare maintenance IRON AND TOTAL IRON BINDING CAPACITY Routine 11/15/2024 3:35 PM EDT Healthcare maintenance FERRITIN Routine 11/15/2024 3:35 PM EDT Healthcare maintenance CBC WITH AUTO DIFFERENTIAL Routine 11/15/2024 3:35 PM EDT Healthcare maintenance COMPREHENSIVE METABOLIC PANEL Routine 11/15/2024 3:35 PM EDT Healthcare maintenance HEMOGLOBIN A1C Routine 11/15/2024 3:35 PM EDT Healthcare maintenance CHLAMYDIA/TRICHOMONAS/ NEISSERIA GONORRHOEAE, PCR, URINE Routine 11/15/2024 3:17 PM EDT Healthcare maintenance HCG, TOTAL, QN Routine 09/02/2024 2:42 PM EDT Encounter for test, result unknown FERRITIN Routine 09/02/2024 2:42 PM EDT Iron deficiency IRON AND TOTAL IRON BINDING CAPACITY Routine 09/02/2024 2:42 PM EDT Iron deficiency CBC WITH AUTO DIFFERENTIAL Routine 09/02/2024 2:42 PM EDT Iron deficiency CHLAMYDIA/N. GONORRHOEAE RNA, TMA, UROGENITAL Routine 04/09/2024 3:40 PM EST Screening examination for STI HIV 1/2 ANTIGEN/ANTIBODY, FOURTH GENERATION W/RFL Routine 04/09/2024 3:37 PM EST Screening examination for STI THINPREP IMAGING SYSTEM PAP Routine 09/29/2023 11:47 AM EDT Screening for cervical cancer from Last 3 Months or Most Recently Relevant to Health Maintenance Results * Lipid Panel, Standard (11/30/2024 3:07 PM EDT) Triglycerides 73 <150 mg/dL [facility] Comment:Desirable Triglyceri de: less than 150 mg/dLBorderline High Triglyceride 150-199 mg/dLHigh Triglyceride: 200-499 mg/dLVery High Triglyceride: greater than or equal to 5OO mg/dL Cholesterol 147 <200 mg/dL [facility] Comment:Desirable Cholestero l: less than 200 mg/dLBorderline High Cholesterol: 200-239 mg/dLHigh Cholesterol: greater than 239 mg/dL LDL Cholesterol Calculated 74 <100 mg/dL [facility] Comment:Desirable LDL: less than 100 mg/dLNear Optimal/Above Optimal LDL: 110- 129 mg/dLBorderline High LDL: 130-159 mg/dLHigh LDL: 160-189 mg/dLVery High LDL: greater than or equal to 190 mg/dL HDL Cholesterol 59 >40 mg/dL [facility] Comment:Desirable HDL: great er than 40 mg/dL Note: This HDL assay may give artificially low results in patients with liver disease. Blood Venous blood specimen / Unknown 11/30/2024 3:07 PM EDT 11/30/2024 5:03 PM EDT us Faivola Roy PROFESSOR OF ASTRONOMY LAB BLOOD ORDERABLES Final Res ult [facility] [address] [place] [phone] * Hepatitis C Viral RNA, Quantitative, Real-Time PCR (11/15/2024 3:35 PM EDT) [facility] Hepatitis C Viral Load <15 NOT DETECTED NOT DETECTED IU/mL [facility] HCV Log PCR <1.18 NOT DETECTED NOT DETECTED Log IU/mL [facility] Comment:For additional infor momo, please refer tohttp://education.[employer]/faq/DQR61l9(This link is being provided for informational/educational purposes only.)THIS TEST WAS PERFORMED AT:[facility] [place] [id number] SIM MD Blood 11/15/2024 3:35 PM EDT 11/15/2024 3:35 PM EDT Faviola Roy [facility] LAB BLOOD ORDERABLES Final Res ult [facility] [address] [place] [phone] * (ABNORMAL) CBC auto differential (11/15/2024 3:35 PM EDT) Only the most recent of2 resultswithin the time period is included. [facility] White Blood Count 9.4 4.8 - 10.8 X10*3/uL [facility] Red Blood Count 4.81 4.20 - 5.50 X10*6/uL [facility] Hemoglobin 12.8 12.0 - 16.0 g/dl [facility] Hematocrit 39.0 37.0 - 47.0 % [facility] Mean Corpuscular Volume 81.1 80.0 - 98.0 fL [facility] Mean Corpuscular Hemoglobin 26.6(L) 27.0 - 33.0 pg [facility] Mean Corpuscular HGB Conc 32.8 31.0 - 35.0 g/dl [facility] Red Cell Distribution Width 13.1 11.0 - 16.0 % [facility] Platelet Count 359 160 - 400 X10*3/uL [facility] Mean Platelet Volume 10.3 9.4 - 12.3 fL [facility] Neutrophils Percent Auto 48.2 45 - 73 % [facility] Imm Gran Pct Auto 0.3 0.0 - 0.4 % [facility] Lymphocytes Percent Auto 40.4(H) 20 - 40 % [facility] Monocytes Percent Auto 7.8 2 - 11 % [facility] Eosinophils Percent Auto 2.9 0 - 4 % [facility] Basophils Percent Auto 0.4 0 - 2 % [facility] NRBC Pct Auto 0.0 0.0 - 0.2 /100WBC [facility] Neutrophils Absolute Auto 4.5 2.0 - 8.3 x10*3/uL [facility] Imm Gran Abs Auto 0.03 0.00 - 0.03 X10*3/uL [facility] Lymphocytes Absolute Auto 3.8 1.2 - 4.9 X10*3/uL [facility] Monocytes Absolute Auto 0.7 0.1 - 1.2 X10*3/uL [facility] Eosinophils Absolute Auto 0.3 0.0 - 0.4 X10*3/uL [facility] Basophils Absolute Auto 0.0 0.0 - 0.2 X10*3/uL [facility] NRBC Abs Auto 0.000 0.0 - 0.012 X10*3/uL [facility] Blood Venous blood specimen / Unknown 11/15/2024 3:35 PM EDT 11/15/2024 3:35 PM EDT us Faviola Roy PROFESSOR OF ASTRONOMY LAB BLOOD ORDERABLES Final Res ult [facility] [address] [place] [phone] * Iron And Total Iron Binding Capacity (11/15/2024 3:35 PM EDT) Only the most recent of2 resultswithin the time period is included. Iron 121 30 - 160 mcg/dL [facility] Comment:Slight Hemolysis.Int erpret result with caution. Total Iron Binding Capacity 288 228 - 428 mcg/dL [facility] Percent Iron Saturation 42 15 - 50 % [facility] Unsaturated Iron Binding 167 ug/dL [facility] Blood Venous blood specimen / Unknown 11/15/2024 3:35 PM EDT 11/15/2024 3:35 PM EDT us Faviola Phallarisa PROFESSOR OF ASTRONOMY LAB BLOOD ORDERABLES Final Res ult [facility] [address] [place] [phone] * Vitamin D 1,25 dihydroxy (11/15/2024 3:35 PM EDT) Vit D (1,25-Dihydroxy) Total 65 18 - 72 pg/mL [facility] VITAMIN D (1,25 OH) D3 65 pg/mL [facility] Vitamin D (1,25 OH) D2 <8 pg/mL [facility] Comment:Vitamin D3, 1,25(OH) 2 indicates both endogenousproduction and supplementation. Vitamin D2, 1,25(OH)2is an indicator of exogenous sources, such as diet orsupplementation. Interpretation and therapy are basedon measurement of Vitamin D,1,25(OH)2, Total.This test was developed and its analyticalperformance characteristics have been determinedby [facility] [place], [place].It has not been cleared or approved by the FDA. Thisassay has been validated pursuant to the CLIAregulations and is used for clinical purposes.THIS TEST WAS PERFORMED AT:[facility] [id number] [place] [id number] GUEVARA MD,PHD 11/15/2024 3:35 PM EDT 11/15/2024 3:35 PM EDT us Faviola Phalen PROFESSOR OF ASTRONOMY LAB BLOOD ORDERABLES Final Res ult Performing Organization Address [facility] Co de Phone Number [facility] [address] [place] [phone] * RPR (Monitor) with Reflex to??Titer (11/15/2024 3:35 PM EDT) RPR (Monitor) w/Refl Titer NON-REACTI VE NON-REACT HILARIA [facility] Comment:THIS TEST WAS PERFOR MED AT:[facility] [place] [id number] SIM MD Rapid Plasma Reagin Ab Titer TNP [facility] Blood Venous blood specimen / Unknown 11/15/2024 3:35 PM EDT 11/15/2024 3:35 PM EDT Faviola Roy [facility] LAB BLOOD ORDERABLES Final Res ult Performing Organization Address [facility] Co de Phone Number [facility] [address] [place] [phone] * TSH (11/15/2024 3:35 PM EDT) Pathologist [facility] Thyroid Stimulating Hormone 1.12 0.32 - 4.0 uIU/mL [facility] Comment:TSH 3rd Generation ( [facility]) 11/15/2024 3:35 PM EDT 11/15/2024 3:35 PM EDT Faviola Roy [facility] LAB BLOOD ORDERABLES Final Res ult Performing Organization Address [facility] Co de Phone Number [facility] [address] [place] [phone] * Hemoglobin A1c (11/15/2024 3:35 PM EDT) Hemoglobin A1c 5.2 <6.0 % [facility] Comment:Hemoglobin A1C Refer ence Range Adults: 4.8 - 6.0 % Non diabetic: < 6.0 % Goal: < 7.0 %Additional Action Suggested: > 8.0 %Note: Hemoglobin A1c results are invalid for patients with abnormal amounts of HbF. Blood transfusions may impact the HbA1c concentration in the patient sample. Estimated Average Glucose 103 mg/dL [facility] Comment:eAG = Estimated ave rage glucose which is %A1C expressed asaverage glucose, using the formula of the B1L-IrptiyySpmqdnl Glucose study (ADAG), Diabetes Care, Vol.31,#8,2007 Blood Venous blood specimen / Unknown 11/15/2024 3:35 PM EDT 11/15/2024 3:35 PM EDT Faviola Roy [facility] LAB BLOOD ORDERABLES Final Res ult Performing Organization Address [facility] Co de Phone Number [facility] [address] [place] [phone] * Ferritin (11/15/2024 3:35 PM EDT) Only the most recent of2 resultswithin the time period is included. Ferritin 29 10 - 122 ng/mL [facility] Blood Venous blood specimen / Unknown 11/15/2024 3:35 PM EDT 11/15/2024 3:35 PM EDT Faviola [employer] Therapeuticslarisa [facility] LAB BLOOD ORDERABLES Final Res ult Performing Organization Address [facility] Co de Phone Number [facility] [address] [place] [phone] * (ABNORMAL) Comprehensive Metabolic Panel (11/15/2024 3:35 PM EDT) Sodium 139 135 - 145 mmol/L [facility] Potassium 4.0 3.3 - 5.1 mmol/L [facility] Comment:Slight Hemolysis.Int erpret result with caution. Chloride 108 96 - 108 mmol/L [facility] Carbon Dioxide 25 22 - 29 mmol/L [facility] Anion Gap 10(L) 12 - 20 [facility] Urea Nitrogen (BUN) 12 9 - 16 mg/dL [facility] Creatinine, Serum 0.82 0.5 - 1.4 mg/dL [facility] Estimated Glomerular Filt Rate >60 [facility] Comment:Chronic Kidney Disea se: Estimated GFR < 60 mL/min/1.44c6Haoupi Kidney Disease: Estimated GFR < 15 mL/min/1.73m2 Glucose 78 60 - 115 mg/dL [facility] Calcium 9.2 8.4 - 10.2 mg/dL [facility] Bilirubin, Total 0.4 0.0 - 1.0 mg/dL [facility] Aspartate Amino Transferase 27 5 - 31 U/L [facility] Comment:Slight Hemolysis.Int erpret result with caution. Alanine Aminotransferase 17 0 - 31 U/L [facility] Total Protein 7.4 6.5 - 8.0 g/dL [facility] Albumin Level 4.1 3.5 - 5.0 g/dL [facility] Alkaline Phosphatase 62 39 - 117 U/L [facility] Blood Venous blood specimen / Unknown 11/15/2024 3:35 PM EDT 11/15/2024 3:35 PM EDT Faviola Roy [facility] LAB BLOOD ORDERABLES Final Res ult [facility] [address] [place] [phone] * Chlamydia/Trichomonas/Neisseria gonorrhoeae, PCR, Urine (11/15/2024 3:17 PM EDT) CT PCR, Urine NOT DETECTED Not Detect. [facility] Comment:A not detected test result does not exclude the possibilityof infection because test results can be affected byimproper specimen collection, concurrent antibiotic therapy,or the number of organisms in the specimen which may bebelow the sensitivity of the test. As with many diagnostictests, results from the Xpert CT/NG assay should beinterpreted in conjunction with other laboratory andclinical data available to the clinician.The Xpert CT/NG assay should not be used for the evaluationof suspected sexual abuse or for other medico-legalindications. Additional testing is recommended in anycircumstance when false positive or false negative resultscould lead to adverse medical, social or psychologicalconsequences. NG PCR, Urine NOT DETECTED Not Detect. [facility] Comment:A not detected test result does not exclude the possibilityof infection because test results can be affected byimproper specimen collection, concurrent antibiotic therapy,or the number of organisms in the specimen which may bebelow the sensitivity of the test. As with many diagnostictests, results from the Xpert CT/NG assay should beinterpreted in conjunction with other laboratory andclinical data available to the clinician.The Xpert CT/NG assay should not be used for the evaluationof suspected sexual abuse or for other medico-legalindications. Additional testing is recommended in anycircumstance when false positive or false negative resultscould lead to adverse medical, social or psychologicalconsequences. Urine (Urine, Random) 11/15/2024 3:17 PM EDT 11/15/2024 3:56 PM EDT us Faviola Roy [facility] URINE ORDERABLES Final Res ult [facility] [address] [place] [phone] * hCG, Total, Quantitative (09/02/2024 2:42 PM EDT) HCG Quantitative <2 mIU/mL [facility] Comment:Weeks post LMP Appro ximate hCG(Last Menstrual Period) Range (mIU/ml)3 - 4 weeks 9 - 1304 - 5 weeks 75 - 2,6005 - 6 weeks 850 - 20,8006 - 7 weeks 4000 - 100,2007 - 12 weeks 11,500 - 289,78708 - 16 weeks 18,300 - 137,05418 - 29 weeks (2nd trimester) 1,400 - 53,69170 - 41 weeks (3rd trimester) 940 - [...] 2:42 PM EDT 09/02/2024 4:20 PM EDT us Faviola Lucianolarisa [facility] LAB BLOOD ORDERABLES Final Res ult [facility] [address] [place] [phone] * Chlamydia/N. Gonorrhoeae RNA, TMA, Urogenitial (04/09/2024 3:40 PM EST) CT PCR NOT DETECTED Not Detect. [facility] Comment:A not detected test result does [...] psychologicalconsequences. NG PCR NOT DETECTED Not Detect. [facility] Comment:A not detected test result does [...] PM EST 04/09/2024 5:47 PM EST Narrative [facility] - 04/09/2024 7:38 PM EST Urine Faviola Roy [facility] MICROBIOLOGY - GENERAL ORD ERABLES Final Result Performing Organization Address [facility]/ZIP Co de Phone Number [facility] [address] [place] [phone] * HIV-1/2 Antigen and Antibodies, Fourth Generation, with Reflexes (04/09/2024 3:37 PM EST) Pathologist [facility] HIV AB/AG Nonreactive Nonreactive [facility] Comment:HIV-1 p24 Ag and/or HIV-1/HIV-2 Ab not detected.A test result that is nonreactive does not exclude thepossibility of exposure to or infection with HIV-1 and/orHIV-2. Nonreactive results in this assay for individualswith prior exposure to HIV-1 and/or HIV-2 may be due toantigen and antibody levels that are below the limit ofdetection of this assay.The [employer] HIV Ag/Ab Combo assay result andsupplemental assay results should be interpreted inconjunction with the patient's clinical presentation,history and other laboratory results. If the results areinconsistent with clinical evidence, additional testing issuggested to confirm the result. Blood Venous blood specimen / Unknown 04/09/2024 3:37 PM EST 04/09/2024 5:47 PM EST Faviola Roy [facility] BLOOD ORDERABLES Final Res ult Performing Organization Address [facility]/ZIP Co de Phone Number [facility] [address] [place] [phone] * Pap Smear (09/29/2023 11:47 AM EDT) SOURCE: SEE NOTE [facility] Comment:None given Report Status: [facility] Clinical Information: SEE NOTE [facility] Comment:None given LMP: SEE NOTE [facility] Comment:NONE GIVEN Prev. PAP: SEE NOTE [facility] Comment:NONE GIVEN Prev. BX: SEE NOTE [facility] Comment:NONE GIVEN Statement Of Adequacy: SEE NOTE [facility] Comment:Satisfactory for jesus luation.Endocervical/transformation zone componentpresent. General Categorization: [facility] Interpretation/Result: SEE NOTE [facility] Comment:Cytology Results: Ne gative for intraepitheliallesion or malignancy. Cytology Comment SEE NOTE [facility] Comment:This Pap test has be en evaluated with computerassisted technology. Fruit Grower: SEE NOTE [facility] Comment:CMB, CT(ASCP) CT Scr eening Location: [facility] [address] preparation performed at: [facility], [address] [place] [id number] CLIA No. [id number] Review Fruit Grower: [facility] Pathologist [facility] PAP Infection [facility] See Note SEE NOTE [facility] Comment:EXPLANATORY NOTE:The Pap is a screening test for cervical cancer. It isnot a diagnostic test and is subject to false negativeand false positive results. It is most reliable when asatisfactory sample, regularly obtained, is submittedwith relevant clinical findings and history, and whenthe Pap result is evaluated along with historic andcurrent clinical information.THIS TEST WAS PERFORMED AT:[facility] [address] [id number] MERATI,MD Pap Vial Vaginal structure / Unknown 09/29/2023 11:47 AM EDT 09/29/2023 7:13 PM EDT Narrative [facility] - 10/03/2023 2:51 PM EDT SEE SCANNED RESULTS IN EMR us Faviola [facility] PATHOLOGY ORDERABLES Final Result [facility] [address] [place], [place] [phone] from Last 3 Months or Most Recently Relevant to Health Maintenance Insurance [facility] C3 Care Teams Quarry Supervisor Dimension Stone Relationship Specialty Start Date End Date Faviola Roy FNP [address] [place] [address] PCP - General Family Medicine 10/05/21
[2024-12-01 03:45] LABS: HIV Num 1 0.09 S/CO (0.00-0.99)
== END 2024-11-30 15:03 | disposition home or self-care (01) ==
LOC: HO.HHCL 15:02
PROVIDERS: PCP Registered Nurse; Visit Provider Registered Nurse
DX: Z00.00 Encounter for general adult medical examination without abnormal findings (principal); Z11.4 Encounter for screening for human immunodeficiency virus [HIV]
CPT/HCPCS: 36415; 80061; 87389

== ENCOUNTER 2024-12-08 20:31 | Emergency (ER) | payer MEDICAID, SELFPAY ==
--- NOTE | 2024-12-08 | ECG_ITS ---
Test Reason : DIZZINESS Blood Pressure : */* mmHG Vent. Rate : 86 BPM Atrial Rate : 86 BPM P-R Int : 160 ms QRS Dur : 90 ms QT Int : 364 ms P-R-T Axes : 48 64 29 degrees QTcB Int : 435 ms Normal sinus rhythm with sinus arrhythmia Normal ECG No previous ECGs available Referred By: Generic ED Physician Electronically Signed By: CHITO CHUN
[2024-12-08 20:36] VITALS: BP 128/76; PULSE 95; RESP 16; TEMP 37; O2SAT 98; BMI 29.0
[2024-12-08 20:56] LABS: Hematocrit 39.9 % (37.0-47.0); Hemoglobin 12.7 g/dl (12.0-16.0); Imm Gran Abs Auto 0.04 X10*3/uL (0.00-0.03); Imm Gran Pct Auto 0.4 % (0.0-0.4); Lymphocytes Absolute Auto 4.0 X10*3/uL (1.2-4.9); MANUAL DIFF FLAG NO; Mean Corpuscular HGB Conc 31.8 g/dl (31.0-35.0); Mean Corpuscular Hemoglobin 26.0 pg (27.0-33.0); Mean Corpuscular Volume 81.6 fL (80.0-98.0); NRBC Abs Auto 0.000 X10*3/uL (0.0-0.012); NRBC Pct Auto 0.0 /100WBC (0.0-0.2); Platelet Count 359 X10*3/uL (160-400); Red Blood Count 4.89 X10*6/uL (4.20-5.50); White Blood Count 11.0 X10*3/uL (4.8-10.8)
--- OUTSIDE RECORDS SUMMARY | 2024-12-08 21:03 | XMS_ITS | Clinical Summary ---
Author Organization [address] Address [address] [place] [address] Phone Care Team Providers Care Swimming Pool Maintenance Name Role Phone Physician, No Pcp Primary Care Provider Unavaila ble Allergies No known active allergies Medications vitamin iron fum-folic acid 27-0.8 mg per tabletIndication s:Attempting to conceive Take 1 tablet by mouth 1 (one) time each day. 30 each 11 10/05/2024 Active Encounters Date Type Department Care Team Description 10/05/2024 2:30 PM EDT Office Visit Obstetrics and Gynecology - [address] [phone] Key Lizarraga CNM Attempting to conceive (Primary [...] Months Insurance MEDICAID - [place] Care Teams Swimming Pool Maintenance Relationship Specialty Start Date End Date Physician, No Pcp PCP - General 10/01/24
--- OUTSIDE RECORDS SUMMARY | 2024-12-08 21:03 | XMS_ITS | Clinical Summary ---
Author Organization [employer] Address [address] [place] [address] [address] [place] [address] Care Team Providers Care Treating Plant Supervisor Name Role Phone Faviola Roy RENU Primary Care Provider [phone] Allergies Active Allergy Reactions Criticality Noted Date [...] Multiple food allergies 08/10/2024 Overview (08/10/2024): 03/11/24: [facility] All[facility] - Dr. Sanchez. Sheaal for possible [...] Department Care Team Description 11/24/2024 Results Follow-Up [facility] [address] [place] [address] Faviola Roy FNP Hemoglobin A1c, Comprehensive Metabolic Panel, CBC auto differential, Additional followed-up results: 5 11/23/2024 Telephone [facility] [address] [place] [address] Faviola Roy FNP Results 11/15/2024 Orders Only [facility] [address] [place] [address] Faviola Roy FNP 11/12/2024 2:45 PM EDT Office Visit [facility] [address] [place] [address] Faviola Roy FNP Encounter for routine history and physical examination of adult (Primary Dx); Encounter for immunization; Healthcare maintenance; Dietary counseling; Exercise counseling; Multiple food allergies; Iron deficiency 11/12/2024 Travel 11/05/2024 Patient Outreach [facility] [address] [place] [address] Faviola Roy FNP Pre-visit Planning (SDOH negative, Tobacco screening negative. ) from Last 3 Months Immunizations Immunization Administration [...] Vaccine (1 of 2 - Standard) 2018 Disability Screening 08/06/2025 08/06/2024 SDOH Screening 11/05/2025 11/05/2024 Chlamydia and Gonorrhea Screening 11/15/2025 11/15/2024, 04/09/2024, 09/29/2023, Additional history exists Alcohol/Substance Use Screening 11/16/2025 11/16/2024 Depression Screening [...] 03/26/2022, Additional history exists Influenza Vaccine Completed 11/12/2024, , 11/28/2021, Additional history exists Hepatitis C Screening Completed 11/15/2024 , 04/09/2024, 09/09/2022, Additional history exists HIV Screening Completed 11/30/2024, 03/14, 09/09/2022 Pneumococcal Vaccine: Pediatrics (0 to 5 [...] Diagnosis Comments CBC WITH AUTO DIFFERENTIAL Routine 12/08/2024 8:51 PM EDT HIV 1/2 ANTIGEN/ANTIBODY, FOURTH GENERATION W/RFL Routine 11/30/2024 3:07 PM EDT Healthcare maintenance LIPID PANEL, STANDARD Routine 11/30/2024 3:07 PM [...] Routine 11/15/2024 3:17 PM EDT Healthcare maintenance [employer] PAP Routine 09/29/2023 11:47 AM EDT Screening for cervical cancer from Last 3 Months or Most Recently Relevant to Health Maintenance Results * (ABNORMAL) CBC auto differential (12/08/2024 8:51 PM EDT) Only the most recent of2 resultswithin the time period is included. White Blood Count 11.0(H) 4.8 - 10.8 X10*3/uL [facility] Red Blood Count 4.89 4.20 - 5.50 X10*6/uL [facility] Hemoglobin 12.7 12.0 - 16.0 g/dl [facility] Hematocrit 39.9 37.0 - 47.0 % [facility] Mean Corpuscular Volume 81.6 80.0 - 98.0 fL [facility] Mean Corpuscular Hemoglobin 26.0(L) 27.0 - 33.0 pg [facility] Mean Corpuscular HGB Conc 31.8 31.0 - 35.0 g/dl [facility] Red Cell Distribution Width 12.8 11.0 - 16.0 % [facility] Platelet Count 359 160 - 400 X10*3/uL [facility] Mean Platelet Volume 9.1(L) 9.4 - 12.3 fL [facility] Neutrophils Percent Auto 54.8 45 - 73 % [facility] Imm Gran Pct Auto 0.4 0.0 - 0.4 % [facility] Lymphocytes Percent Auto 36.7 20 - 40 % [facility] Monocytes Percent Auto 6.0 2 - 11 % [facility] Eosinophils Percent Auto 1.6 0 - 4 % [facility] Basophils Percent Auto 0.5 0 - 2 % [facility] NRBC Pct Auto 0.0 0.0 - 0.2 /100WBC [facility] Neutrophils Absolute Auto 6.0 2.0 - 8.3 x10*3/uL [facility] Imm Gran Abs Auto 0.04(H) 0.00 - 0.03 X10*3/uL [facility] Lymphocytes Absolute Auto 4.0 1.2 - 4.9 X10*3/uL [facility] Monocytes Absolute Auto 0.7 0.1 - 1.2 X10*3/uL [facility] Eosinophils Absolute Auto 0.2 0.0 - 0.4 X10*3/uL [facility] Basophils Absolute Auto 0.1 0.0 - 0.2 X10*3/uL [facility] NRBC Abs Auto 0.000 0.0 - 0.012 X10*3/uL [facility] 12/08/2024 8:51 PM EDT 12/08/2024 8:54 PM EDT us Generic External Data Provider LAB BLOOD ORDERAB LES Final Result Performing Organization Address City/[facility]/ZIP Co de Phone Number [facility] [address] [place] [address] [phone] * HIV-1/2 Antigen and Antibodies, Fourth Generation, with Reflexes (11/30/2024 3:07 PM EDT) Pathologist [facility] HIV AB/AG Nonreactive Nonreactive [facility] Comment:HIV-1 p24 Ag and/or HIV-1/HIV-2 Ab not detected.A test result that is nonreactive does not exclude thepossibility of exposure to or infection with HIV-1 and/orHIV-2. Nonreactive results in this assay for individualswith prior exposure to HIV-1 and/or HIV-2 may be due toantigen and antibody levels that are below the limit ofdetection of this assay.The [id number] HIV Ag/Ab Combo assay result andsupplemental assay results should be interpreted inconjunction with the patient's clinical presentation,history and other laboratory results. If the results areinconsistent with clinical evidence, additional testing issuggested to confirm the result. Blood Venous blood specimen / Unknown 11/30/2024 3:07 PM EDT 11/30/2024 5:03 PM EDT us Faviola Roy NURSE CASE MANAGEMENT LAB BLOOD ORDERABLES Final Res ult Performing Organization Address City/[facility]/ZIP Co de Phone Number [facility] [address] [place] [address] [phone] * Lipid Panel, Standard (11/30/2024 3:07 PM EDT) Triglycerides 73 <150 mg/dL [facility] Comment:Desirable Triglyceri de: less than 150 mg/dLBorderline High Triglyceride 150-199 mg/dLHigh Triglyceride: 200-499 mg/dLVery High Triglyceride: greater than or equal to 5OO mg/dL Cholesterol 147 <200 mg/dL [facility] Comment:Desirable Cholestero l: less than 200 mg/dLBorderline High Cholesterol: 200-239 mg/dLHigh Cholesterol: greater than 239 mg/dL LDL Cholesterol Calculated 74 <100 mg/dL [facility] Comment:Desirable LDL: less than 100 mg/dLNear Optimal/Above Optimal LDL: 110- 129 mg/dLBorderline High LDL: 130-159 mg/dLHigh LDL: 160-189 mg/dLVery High LDL: greater than or equal to 190 mg/dL HDL Cholesterol 59 >40 mg/dL [facility] Comment:Desirable HDL: great er than 40 mg/dL Note: This HDL assay may give artificially low results in patients with liver disease. Blood Venous blood specimen / Unknown 11/30/2024 3:07 PM EDT 11/30/2024 5:03 PM EDT us Faviola Roy NURSE CASE MANAGEMENT LAB BLOOD ORDERABLES Final Res ult [facility] [address], [place] [phone] * Hepatitis C Viral RNA, Quantitative, Real-Time PCR (11/15/2024 3:35 PM EDT) Hepatitis C Viral Load <15 NOT DETECTED NOT DETECTED IU/mL [facility] HCV Log PCR <1.18 NOT DETECTED NOT DETECTED Log IU/mL [facility] Comment:For additional infor matemmanuel, please refer [email or web address]/faq/[email or web address](This link is being provided for informational/educational purposes only.)THIS TEST WAS PERFORMED AT:[email or web address] [place] [id number] SIM MD Blood 11/15/2024 3:35 PM EDT 11/15/2024 3:35 PM EDT Faviola Roy NURSE CASE MANAGEMENT LAB BLOOD ORDERABLES Final Res ult Performing Organization Address [facility] Co de Phone Number [facility] [address] [place] [phone] * Iron And Total Iron Binding Capacity (11/15/2024 3:35 PM EDT) Iron 121 30 - 160 mcg/dL [facility] Comment:Slight Hemolysis.Int erpret result with caution. Total Iron Binding Capacity 288 228 - 428 mcg/dL [facility] Percent Iron Saturation 42 15 - 50 % [facility] Unsaturated Iron Binding 167 ug/dL [facility] Blood Venous blood specimen / Unknown 11/15/2024 3:35 PM EDT 11/15/2024 3:35 PM EDT Faviola Roy NURSE CASE MANAGEMENT LAB BLOOD ORDERABLES Final Res ult Performing Organization Address [facility] Co de Phone Number [facility] [address] [place] [phone] * Vitamin D 1,25 dihydroxy (11/15/2024 3:35 PM EDT) Vit D (1,25-Dihydroxy) Total 65 18 - 72 pg/mL [facility] VITAMIN D (1,25 OH) D3 65 pg/mL [facility] Vitamin D (1,25 OH) D2 <8 pg/mL [facility] Comment:Vitamin D3, 1,25(OH) 2 indicates both endogenousproduction and supplementation. Vitamin D2, 1,25(OH)2is an indicator of exogenous sources, such as diet orsupplementation. Interpretation and therapy are basedon measurement of Vitamin D,1,25(OH)2, Total.This test was developed and its analyticalperformance characteristics have been determinedby [facility], [place], [place].It has not been cleared or approved by the FDA. Thisassay has been validated pursuant to the CLIAregulations and is used for clinical purposes.THIS TEST WAS PERFORMED AT:[employer]/[id number] [place] [id number] GUEVARA MD,PHD 11/15/2024 3:35 PM EDT 11/15/2024 3:35 PM EDT us Faviola Phallarisa NURSE CASE MANAGEMENT LAB BLOOD ORDERABLES Final Res ult Performing Organization Address [facility] Co de Phone Number [facility] [address] [place] [phone] * RPR (Monitor) with Reflex to??Titer (11/15/2024 3:35 PM EDT) RPR (Monitor) w/Refl Titer NON-REACTI VE NON-REACT HILARIA [facility] Comment:THIS TEST WAS PERFOR MED AT:[employer] [address] [id number] SIM MD Rapid Plasma Reagin Ab Titer TNP [facility] Blood Venous blood specimen / Unknown 11/15/2024 3:35 PM EDT 11/15/2024 3:35 PM EDT us Faviola Phallarisa NURSE CASE MANAGEMENT LAB BLOOD ORDERABLES Final Res ult Performing Organization Address [facility] de Phone Number [facility] [address] [place] [phone] * TSH (11/15/2024 3:35 PM EDT) Thyroid Stimulating Hormone 1.12 0.32 - 4.0 uIU/mL [facility] Comment:TSH 3rd Generation ( [facility]) 11/15/2024 3:35 PM EDT 11/15/2024 3:35 PM EDT us Faviola Phallarisa NURSE CASE MANAGEMENT LAB BLOOD ORDERABLES Final Res ult Performing Organization Address [facility] Co de Phone Number [facility] [address] [place] [phone] * Hemoglobin A1c (11/15/2024 3:35 PM EDT) Hemoglobin A1c 5.2 <6.0 % [facility] Comment:Hemoglobin A1C Refer ence Range Adults: 4.8 - 6.0 % Non diabetic: < 6.0 % Goal: < 7.0 %Additional Action Suggested: > 8.0 %Note: Hemoglobin A1c results are invalid for patients with abnormal amounts of HbF. Blood transfusions may impact the HbA1c concentration in the patient sample. Estimated Average Glucose 103 mg/dL [facility] Comment:eAG = Estimated ave rage glucose which is %A1C expressed asaverage glucose, using the formula of the M2P-VmydetkRxojznp Glucose study (ADAG), Diabetes Care, Vol.31,#8,Sep. 2007 Blood Venous blood specimen / Unknown 11/15/2024 3:35 PM EDT 11/15/2024 3:35 PM EDT us Faviola Roy NURSE CASE MANAGEMENT LAB BLOOD ORDERABLES Final Res ult Performing Organization Address City/[facility]/ZIP Co de Phone Number [facility] [address] [place] [phone] * Ferritin (11/15/2024 3:35 PM EDT) Ferritin 29 10 - 122 ng/mL [facility] Blood Venous blood specimen / Unknown 11/15/2024 3:35 PM EDT 11/15/2024 3:35 PM EDT Faviola Roy [facility] LAB BLOOD ORDERABLES Final Res ult Performing Organization Address [facility]/ZIP Co de Phone Number [facility] [address] [place] [phone] * (ABNORMAL) Comprehensive Metabolic Panel (11/15/2024 3:35 PM EDT) Sodium 139 135 - 145 mmol/L [facility] Potassium 4.0 3.3 - 5.1 mmol/L [facility] Comment:Slight Hemolysis.Int erpret result with caution. Chloride 108 96 - 108 mmol/L [facility] Carbon Dioxide 25 22 - 29 mmol/L [facility] Anion Gap 10(L) 12 - 20 [facility] Urea Nitrogen (BUN) 12 9 - 16 mg/dL [facility] Creatinine, Serum 0.82 0.5 - 1.4 mg/dL [facility] Estimated Glomerular Filt Rate >60 [facility] Comment:Chronic Kidney Disea se: Estimated GFR < 60 mL/min/1.06o6Hqdojb Kidney Disease: Estimated GFR < 15 mL/min/1.73m2 Glucose 78 60 - 115 mg/dL [facility] Calcium 9.2 8.4 - 10.2 mg/dL [facility] Bilirubin, Total 0.4 0.0 - 1.0 mg/dL [facility] Aspartate Amino Transferase 27 5 - 31 U/L [facility] Comment:Slight Hemolysis.Int erpret result with caution. Alanine Aminotransferase 17 0 - 31 U/L [facility] Total Protein 7.4 6.5 - 8.0 g/dL [facility] Albumin Level 4.1 3.5 - 5.0 g/dL [facility] Alkaline Phosphatase 62 39 - 117 U/L [facility] Blood Venous blood specimen / Unknown 11/15/2024 3:35 PM EDT 11/15/2024 3:35 PM EDT us Faviola Roy NURSE CASE MANAGEMENT LAB BLOOD ORDERABLES Final Res ult [facility] [address] [place], [place] [phone] * Chlamydia/Trichomonas/Neisseria gonorrhoeae, PCR, Urine (11/15/2024 3:17 PM EDT) CT PCR, Urine NOT DETECTED Not Detect. [facility] Comment:A not detected test result [...] NG PCR, Urine NOT DETECTED Not Detect. [facility] Comment:A not detected test result [...] 3:17 PM EDT 11/15/2024 3:56 PM EDT Faviola Roy [facility] URINE ORDERABLES Final Res ult [facility] [address] [place] [phone] * Pap Smear (09/29/2023 11:47 AM EDT) SOURCE: SEE NOTE [facility] Comment:None given Report Status: TNP [facility] Clinical Information: SEE NOTE [facility] Comment:None given LMP: SEE NOTE [facility] Comment:NONE GIVEN Prev. PAP: SEE NOTE [facility] Comment:NONE GIVEN Prev. BX: SEE NOTE [facility] Comment:NONE GIVEN Statement Of Adequacy: SEE NOTE [facility] Comment:Satisfactory for jesus luation.Endocervical/transformation zone componentpresent. General Categorization: [facility] Interpretation/Result: SEE NOTE [facility] Comment:Cytology Results: Ne gative for intraepitheliallesion or malignancy. Cytology Comment SEE NOTE [facility] Comment:This Pap test has be en evaluated with computerassisted technology. Slot Machine Key Person: SEE NOTE [facility] Comment:CMB, CT(ASCP) CT Scr eening Location: Dr. Z [address] preparation performed at: [employer] [address] CLIA No. [id number] Review Sl[employer] Machine Key Person: [facility] Pathologist [facility] PAP Infection [facility] See Note SEE NOTE [facility] Comment:EXPLANATORY NOTE:The Pap is a screening test for cervical cancer. It isnot a diagnostic test and is subject to false negativeand false positive results. It is most reliable when asatisfactory sample, regularly obtained, is submittedwith relevant clinical findings and history, and whenthe Pap result is evaluated along with historic andcurrent clinical information.THIS TEST WAS PERFORMED AT:[employer] [address] [id number] MERATI,MD Pap Vial Vaginal structure / Unknown 09/29/2023 11:47 AM EDT 09/29/2023 7:13 PM EDT Narrative [facility] - 10/03/2023 2:51 PM EDT SEE SCANNED RESULTS IN EMR Faviola Roy NURSE CASE MANAGEMENT LAB PATHOLOGY ORDERABLES Final Result [facility] [address] [place] [phone] from Last 3 Months or Most Recently Relevant to Health Maintenance Insurance [facility] C3 Care Teams Treating Plant Supervisor Relationship Specialty Start Date End Date Faviola Roy FNP [address] [place] [address] PCP - General Family Medicine 10/05/21
--- OUTSIDE RECORDS SUMMARY | 2024-12-08 21:03 | XMS_ITS | Encounter Summary ---
Author Organization [employer] Address [address] [place] [address] 7 [place] [address] Care Team Providers Care Trimmer And Borer Machine Operator Name Role Phone Faviola Roy Primary Care Provider [phone] Encounter Details Date Type Department Care Team (Latest Contact Info) Description 11/24/2024 Results Follow-Up [facility] [address] [place], [place] [phone] Faviola Roy FNP [address] [place] [address] Hemoglobin A1c, Comprehensive Metabolic Panel, CBC auto [...] is your housing situation today? I have tylre purdy 11/05/[address] you [...] AM EDT documented as of this encounter Progress Notes * RENU Guevara - 12/06/2024 6:14 PM EDT Please call to let her know that additional labs: HIV and lipid panel, came back normal. (Would send a letter, but unable to send STI testing per mail per HIM). Thanks! documented in this encounter Miscellaneous Notes * Telephone Encounter - Nadya Pollock RN - 12/07/2024 10:32 AM EDT TC to pt and advised of normal lab results. No questions from pt. Pt verbalized understanding of labs. * Telephone Encounter - Nadya Pollock RN - 12/07/2024 10:32 AM EDT ----- Message from RENU Guevara sent at 12/06/2024 6:14 PM EDT ----- * Telephone Encounter - Nadya Pollock RN - 11/29/2024 2:13 PM EDT TC to pt and informed of needing to complete additional blood work. Pt verbalized understanding andagreement with plan. * Telephone Encounter - Nadya Pollock RN - 11/29/2024 2:10 PM EDT [place] [facility] [place] to inquire about test for lipids [...] documented in this encounter Plan of Treatment Not on file documented as of this encounter Procedures Procedure Name Priority Date/Time Associated Diagnosis Comments HIV 1/2 ANTIGEN/ANTIBODY, FOURTH GENERATION W/RFL Routine 11/30/2024 3:07 PM EDT Healthcare maintenance LIPID PANEL, STANDARD Routine 11/30/2024 3:07 PM EDT Healthcare maintenance documented in this encounter Results * HIV-1/2 Antigen and Antibodies, Fourth Generation, with Reflexes (11/30/2024 3:07 PM EDT) Pathologist [facility] HIV AB/AG Nonreactive Nonreactive [facility] Comment:HIV-1 p24 Ag and/or HIV-1/HIV-2 Ab not detected.A test result that is nonreactive does not exclude thepossibility of exposure to or infection with HIV-1 and/orHIV-2. Nonreactive results in this assay for individualswith prior exposure to HIV-1 and/or HIV-2 may be due toantigen and antibody levels that are below the limit ofdetection of this assay.The [employer] HIV Ag/Ab Combo assay result andsupplemental assay results should be interpreted inconjunction with the patient's clinical presentation,history and other laboratory results. If the results areinconsistent with clinical evidence, additional testing issuggested to confirm the result. Blood Venous blood specimen / Unknown 11/30/2024 3:07 PM EDT 11/30/2024 5:03 PM EDT us Faviola Roy [facility] BLOOD ORDERABLES Final Res ult [facility] [address] [place] [phone] * Lipid Panel, Standard (11/30/2024 3:07 PM EDT) Pathologist [facility] Triglycerides 73 <150 mg/dL [facility] Comment:Desirable Triglyceri de: less than 150 mg/dLBorderline High Triglyceride 150-199 mg/dLHigh Triglyceride: 200-499 mg/dLVery High Triglyceride: greater than or equal to 5OO mg/dL Cholesterol 147 <200 mg/dL [facility] Comment:Desirable Cholestero l: less than 200 mg/dLBorderline High Cholesterol: 200-239 mg/dLHigh Cholesterol: greater than 239 mg/dL LDL Cholesterol Calculated 74 <100 mg/dL [facility] Comment:Desirable LDL: less than 100 mg/dLNear Optimal/Above Optimal LDL: 110- 129 mg/dLBorderline High LDL: 130-159 mg/dLHigh LDL: 160-189 mg/dLVery High LDL: greater than or equal to 190 mg/dL HDL Cholesterol 59 >40 mg/dL [facility] Comment:Desirable HDL: great er than 40 mg/dL Note: This HDL assay may give artificially low results in patients with liver disease. Blood Venous blood specimen / Unknown 11/30/2024 3:07 PM EDT 11/30/2024 5:03 PM EDT us Faviola [facility] LAB BLOOD ORDERABLES Final Res ult [facility] [address] [place] [phone] documented in this encounter Visit Diagnoses Diagnosis Healthcare maintenance documented in this encounter Additional Health Concerns Assessment Noted Time PHQ-9 Depression Total Score: 0 11/17/19 25 6:08 PM EDT documented as of this encounter Care Teams Trimmer And Borer Machine Operator Relationship Specialty Start Date End Date Faviola Roy FNP [address] [place] [address] PCP - General Family Medicine 10/05/21 documented as of this encounter
--- OUTSIDE RECORDS SUMMARY | 2024-12-08 21:03 | XMS_ITS | Encounter Summary ---
Author Organization [employer] Address [address] [place] [address] 7 [place] [address] Care Team Providers Care Surgical Tech Name Role Phone Faviola Roy Primary Care Provider [phone] Encounter Details Date Type Department Care Team (Late st Contact Info) Description 09/11/2022 Orders Only [facility] [address] [place] [address] Faviola Roy FNP [address] [place] [address] Dietary iron deficiency without anemia (Primary Dx) [...] EDT) Ferritin 13 10 - 122 ng/mL [facility] 06/10/2023 12:0 3 PM EDT 06/10/2023 3:56 PM EDT us Faviola Phalen [employer] LAB BLOOD ORDERABLES Final Res ult Performing Organization Address [facility]/ZIP Co de Phone Number [facility] [address] [place] [address] [phone] * Iron And Total Iron Binding Capacity (06/10/2023 12:03 PM EDT) Iron 105 30 - 160 mcg/dL [facility] Total Iron Binding Capacity 377 228 - 428 mcg/dL [facility] Percent Iron Saturation 28 15 - 50 % [facility] Unsaturated Iron Binding 272 ug/dL [facility] 06/10/2023 12:0 3 PM EDT 06/10/2023 3:56 PM EDT us Faviola Phalen [employer] WRITER LAB BLOOD ORDERABLES Final Res ult Performing Organization Address [facility]/ZIP Co de Phone Number [facility] [address] [place] [phone] * (ABNORMAL) CBC auto differential (06/10/2023 12:03 PM EDT) White Blood Count 9.1 4.8 - 10.8 X10*3/uL [facility] Red Blood Count 5.07 4.20 - 5.50 X10*6/uL [facility] Hemoglobin 14.0 12.0 - 16.0 g/dl [facility] Hematocrit 43.5 37.0 - 47.0 % [facility] Mean Corpuscular Volume 85.8 80.0 - 98.0 fL [facility] Mean Corpuscular Hemoglobin 27.6 27.0 - 33.0 pg [facility] Mean Corpuscular HGB Conc 32.2 31.0 - 35.0 g/dl [facility] Red Cell Distribution Width 12.4 11.0 - 16.0 % [facility] Platelet Count 405(H) 160 - 400 X10*3/uL [facility] Mean Platelet Volume 9.9 9.4 - 12.3 fL [facility] Neutrophils Percent Auto 49.7 45 - 73 % [facility] Imm Gran Pct Auto 0.2 0.0 - 0.4 % [facility] Lymphocytes Percent Auto 38.9 20 - 40 % [facility] Monocytes Percent Auto 7.0 2 - 11 % [facility] Eosinophils Percent Auto 3.8 0 - 4 % [facility] Basophils Percent Auto 0.4 0 - 2 % [facility] NRBC Pct Auto 0.0 0.0 - 0.2 /100WBC [facility] Neutrophils Absolute Auto 4.5 2.0 - 8.3 x10*3/uL [facility] Imm Gran Abs Auto 0.02 0.00 - 0.03 X10*3/uL [facility] Lymphocytes Absolute Auto 3.5 1.2 - 4.9 X10*3/uL [facility] Monocytes Absolute Auto 0.6 0.1 - 1.2 X10*3/uL [facility] Eosinophils Absolute Auto 0.3 0.0 - 0.4 X10*3/uL [facility] Basophils Absolute Auto 0.0 0.0 - 0.2 X10*3/uL [facility] NRBC Abs Auto 0.000 0.0 - 0.012 X10*3/uL [facility] 06/10/2023 12:0 3 PM EDT 06/10/2023 1:14 PM EDT us Faviola SEARS LAB BLOOD ORDERABLES Final Res ult [facility] [address] [place] [address] [phone] documented in this encounter Visit Diagnoses Diagnosis Dietary iron deficiency without anemia- Primary documented in this encounter Additional Health Concerns Assessment Noted Time PHQ-9 Depression Total Score: 0 02/13/19 23 1:59 PM EST documented as of this encounter Care Teams Surgical Tech Relationship Specialty Start Date End Date Faviola Roy FNP [address] [place] [address] PCP - General Family Medicine 10/05/21 documented as of this encounter
[2024-12-08 21:10] LABS: Alanine Aminotransferase 9 U/L (0-31); Albumin Level 4.1 g/dL (3.5-5.0); Alkaline Phosphatase 65 U/L (39-117); Anion Gap 13 (12-20); Aspartate Amino Transferase 16 U/L (5-31); Blood Urea Nitrogen 13 mg/dL (9-16); Calcium 9.0 mg/dL (8.4-10.2); Carbon Dioxide 21 mmol/L (22-29); Chloride 110 mmol/L (96-108); Creatinine Clr Calc Pharmacy 115.6; Estimated Glomerular Filt Rate > 60; Iron 42 mcg/dL (30-160); Percent Iron Saturation 15 % (15-50); Potassium 3.6 mmol/L (3.3-5.1); Sodium 140 mmol/L (135-145); Total Iron Binding Capacity 285 mcg/dL (228-428); Total Protein 7.3 g/dL (6.5-8.0); Unsaturated Iron Binding 243 ug/dL
[2024-12-08 21:17] LABS: Appearance Urine Clear; Glucose Urine UA Negative (Negative); PH 5.5 (5.0-9.0); Specific Gravity - Urine 1.015 (1.005-1.025); UMIC TRIGGER UACC YES
[2024-12-08 21:19] LABS: UPreg QC Valid YES
--- NOTE | 2024-12-08 22:24 | ED.DIZZY ---
HPI - Dizziness General Chief Complaint: Dizziness Stated Complaint: Dizzy Time Seen by Provider: 12/08/24 22:23 Source: patient and other (Significant other: Saji) Mode of arrival: ambulatory Limitations: no limitations History of Present Illness ED Provider: Dr. Saroj Fish HPI Narrative: 24-year-old female with no significant past medical history who presents emergency department for evaluation of sudden onset of vertigo. 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 She states that the dizziness was intermittent but was worse with position change in head movement. She states that she has no dizziness at the time my evaluation. She denied any concerning symptoms such as headache, nausea, vomiting, change in vision, numbness or weakness. This has her 1st episode of vertigo. She denies any recent viral illness. She denies any recent head injury. Related Data Previous Rx's ?Medication ?Instructions ?Recorded ibuprofen 400 mg tablet 400 mg PO TID #10 tabs 05/02/20 meclizine 25 mg tablet (Dramamine 25 mg PO TID PRN dizziness #20 tabs 12/08/24 Less Drowsy) Allergies Allergy/AdvReac Type Severity Reaction Status Date / Time apple Allergy Itching Verified 12/08/24 20:37 isaacs Allergy Itching Verified 12/08/24 20:37 SEASONAL ALLERGIES Allergy Unknown ITCHY EYES Uncoded 12/08/24 20:37 Review of Systems Review of Systems: Yes all other systems are reviewed and are negative PMFSH Past Medical History Surgical History No pertinent past surgical history Social History Social History (System 07/22/23 @ 10:50 by Aure Ahmadi) Alcohol intake: never Smoked in Last 30 Days: No Use of substances other than those prescribed or required for medical reasons: No Advance Directives: No Advance Directives Information Provided: No Physical Exam Vital Signs: Vital Signs: Last Vital Signs Temp 98.6 F 12/08/24 20:36 Pulse 95 12/08/24 20:36 Resp 16 12/08/24 20:36 BP 128/76 12/08/24 20:36 Pulse Ox 98 12/08/24 20:36 O2 Del Method Room Air 12/08/24 20:36 BMI result Body Mass Index 29.0 Vital signs were normal Exam: General: Awake, alert in no distress Head: Normocephalic, atraumatic EENT: PERRL, sclera and conjunctiva are normal, mouth with no erythema or exudates Neck: Supple, no adenopathy Lung: breath sounds symmetric, no wheezing, no rales and no rhonchi Chest: symmetric movement, nontender Heart: regular rate and rhythm, normal S1, S2 no murmurs or rubs Abdomen: soft, non-tender, nondistended, normal bowel sounds Back: no vertebral tenderness, no CVAT Extremities: no deformities, moves all extremities symmetrically, no edema Neuro: General: ?Awake, alert, oriented, normal speech Cranial nerves: ?Cranial nerves ?intact Strength: ?Moves all extremities symmetrically, strength 5/5 Cerebellar: ?Good ucqjqs-fv-hdqn-to-finger, good rapid finger movement, normal heel to yeh Psych: Pleasant, cooperative Medical Decision Making Medical Decision Making MDM Narrative: 24-year-old female with no significant past medical history who presents emergency department for evaluation of sudden onset of vertigo. 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 She states that the dizziness was intermittent but was worse with position change in head movement. She states that she has no dizziness at the time my evaluation. She denied any concerning symptoms such as headache, nausea, vomiting, change in vision, numbness or weakness. This has her 1st episode of vertigo. She denies any recent viral illness. She denies any recent head injury. Vital signs were normal. Physical examination was normal including a normal cerebellar exam. Differential diagnosis: ?Includes but is not limited to benign positional vertigo, cerebellar stroke, anemia, electrolyte abnormalities Course: 22:46 My independent interpretation of the patient's laboratory evaluation is as follows: CBC was normal. CMP revealed an elevated chloride 110, low bicarb 21, elevated glucose 137. Urinalysis/microscopic revealed no evidence for urinary tract infection. Urine test was negative. Patient's presentation is consistent with benign positional vertigo. Patient was given meclizine 25 mg orally. She was given a prescription for meclizine 25 mg TID PRN dizziness. She was also given a return to work note. She was given printed and verbal instructions and discharged home. Differential Diagnosis Differential Diagnoses: The differential diagnosis associated with the presentation includes (See above) Admission/Observation Consideration of admission/observation: Escalation of care including admission/observation considered (Yes) Lab Data MDM Lab Attestation statement: I reviewed the patient's lab results. 12/08/24 20:51 12/08/24 20:51 Labs: Lab Results 12/08/24 12/08/24 Range/Units 20:51 21:09 WBC 11.0 H (4.8-10.8) X10*3/uL RBC 4.89 (4.20-5.50) X10*6/uL Hgb 12.7 (12.0-16.0) g/dl Hct 39.9 (37.0-47.0) % MCV 81.6 (80.0-98.0) fL MCH 26.0 L (27.0-33.0) pg MCHC 31.8 (31.0-35.0) g/dl RDW 12.8 (11.0-16.0) % Plt Count 359 (160-400) X10*3/uL MPV 9.1 L (9.4-12.3) fL Immature Gran % (Auto) 0.4 (0.0-0.4) % Neut % (Auto) 54.8 (45-73) % Lymph % (Auto) 36.7 (20-40) % [place] % (Auto) 6.0 (2-11) % Eos % (Auto) 1.6 (0-4) % Baso % (Auto) 0.5 (0-2) % Lymph # (Auto) 4.0 (1.2-4.9) X10*3/uL [place] # (Auto) 0.7 (0.1-1.2) X10*3/uL Eos # (Auto) 0.2 (0.0-0.4) X10*3/uL Baso # (Auto) 0.1 (0.0-0.2) X10*3/uL Abs Immat Gran (auto) 0.04 H (0.00-0.03) X10*3/uL Absolute Neuts (auto) 6.0 (2.0-8.3) x10*3/uL Absolute Nucleated RBC 0.000 (0.0-0.012) X10*3/uL Nucleated RBC % (auto) 0.0 (0.0-0.2) /100WBC Sodium 140 (135-145) mmol/L Potassium 3.6 (3.3-5.1) mmol/L Chloride 110 H (96-108) mmol/L Carbon Dioxide 21 L (22-29) mmol/L Anion Gap 13 (12-20) BUN 13 (9-16) mg/dL Creatinine 0.85 (0.5-1.4) mg/dL Estim Creat Clear Calc 115.6 Estimated GFR > 60 Random Glucose 137 H (60-115) mg/dL Calcium 9.0 (8.4-10.2) mg/dL Iron 42 (30-160) mcg/dL TIBC 285 (228-428) mcg/dL % Saturation 15 (15-50) % Unsat Iron Binding 243 ug/dL Total Bilirubin 0.2 (0.0-1.0) mg/dL AST 16 (5-31) U/L ALT 9 (0-31) U/L Alkaline Phosphatase 65 (39-117) U/L Total Protein 7.3 (6.5-8.0) g/dL Albumin 4.1 (3.5-5.0) g/dL Urine Color Yellow Urine Appearance Clear Urine pH 5.5 (5.0-9.0) Ur Specific [place] 1.015 (1.005-1.025) Urine Protein Negative (Neg-Trace) mg/dL Urine Glucose (UA) Negative (Negative) mg/dL Urine Ketones Negative (Negative) mg/dL Urine Blood Trace H (Negative) Urine Nitrite Negative (Negative) Ur Leukocyte Esterase Negative (Negative) Urine RBC 0-2 (0-2) /HPF Urine WBC 0-5 (0-5) /HPF Ur Squamous Epith Cells 3-5 (0-2) /HPF Urine Bacteria None Seen (None Seen) Hyaline Casts 0-2 (0-2) /LPF Urine Test NEGATIVE (NEGATIVE) Independent Interpretation I performed an independent interpretation of an: EKG Interpretation: My independent interpretation of the patient's 12 EKG done on 12/08/2024 at 20:45 hours is as follows: Normal sinus rhythm with sinus arrhythmia, rate 86 beats per minute, normal [place] interval, QRS duration QTC interval, no ST segment elevation, no ST segment depression, no significant T-wave abnormalities, no PACs, no PVCs Independent Historian Clinical information obtained from an independent historian. History obtained from or confirmed by: Other (Significant other) Prescription Management I considered prescription management with: Other (Anti vertigo medication: Meclizine) Discharge Plan Discharge Clinical Impression: Benign paroxysmal positional vertigo Patient Disposition: Home, Self-Care Instructions: Vertigo (ED) Additional Instructions: Your blood work was unremarkable. Your urine test was negative. Your symptoms and physical exam are consistent with benign positional vertigo which is caused by the balance mechanism in your inner ear. This often resolves without any treatment and sometimes you can have symptoms they can last up to 1-2 weeks. The symptoms are worse with changing position and moving your head. Take meclizine 25 mg pills, 1 pill 3 times a day for the next 3 days for dizziness then as needed for dizziness. ?This medication will make you sleepy. ?Do not drive or work while taking this medication. Follow-up with your doctor in 2 days. Please return to the emergency department if your symptoms get worse or if you develop any symptoms that are concerning to you. See the return to work note Prescriptions: New meclizine [Dramamine Less Drowsy] 25 mg tablet 25 mg PO TID PRN (Reason: dizziness) Qty: 20 0RF No Action ibuprofen 400 mg tablet 400 mg PO TID Qty: 10 0RF Stand Alone Forms: Work/School Release Print Language: Ecuadorean
[2024-12-08 23:31] VITALS: BP 128/76; PULSE 95; RESP 16; TEMP 37; O2SAT 98
== END 2024-12-08 23:31 | disposition home or self-care (01) ==
PROVIDERS: Emergency Provider Emergency Medicine Emergency Medical Services; PCP Registered Nurse
DX: H81.10 Benign paroxysmal vertigo, unspecified ear (principal)
CPT/HCPCS: 36415; 80053; 81001; 81025; 83540; 85025; 93005; 99283; 99284

== ENCOUNTER → 2024-12-08 20:45 | Outpatient (BNV) | payer MEDICAID, SELFPAY | PROVIDERS: Emergency Provider Emergency Medicine Emergency Medical Services; PCP Registered Nurse; Visit Provider Internal Medicine | DX: R42 Dizziness and giddiness (principal) | CPT/HCPCS: 93010 ==

== ENCOUNTER 2025-01-09 18:24 | Emergency (ER) | payer MEDICAID, SELFPAY ==
[2025-01-09 18:31] VITALS: BP 121/57; PULSE 106; RESP 18; TEMP 36.3; O2SAT 99; BMI 38.2
--- NOTE | 2025-01-09 18:33 | ED.GENADULT ---
HPI - General Adult General Chief complaint: General Medical Stated complaint: wants to confirm Time Seen by Provider: 01/09/25 18:39 Source: patient Mode of arrival: ambulatory Limitations: no limitations History of Present Illness HPI narrative: 24-year-old female, , LMP at the beginning of December, presents requesting confirmation. Patient states she was seen at [facility] on the 05 of January where she had positive test following a positive test at home. She had blood work done but does not know the results. Currently she has no physical complaints. She denies any vaginal discharge bleeding or spotting. No abdominal pain. No fevers chills nausea or vomiting. No urinary symptoms. She does not have an OB at [facility] at this time. She does take vitamins. She denies any trauma. Related Data Previous Rx's ?Medication ?Instructions ?Recorded ibuprofen 400 mg tablet 400 mg PO TID #10 tabs 05/02/20 meclizine 25 mg tablet (Dramamine 25 mg PO TID PRN dizziness #20 tabs 12/08/24 Less Drowsy) Allergies Allergy/AdvReac Type Severity Reaction Status Date / Time apple Allergy Itching Verified 01/09/25 18:32 isaacs Allergy Itching Verified 01/09/25 18:32 SEASONAL ALLERGIES Allergy Unknown ITCHY EYES Uncoded 12/08/24 20:37 Review of Systems Review of Systems: Yes all other systems are reviewed and are negative Gastrointestinal: Gastrointestinal: Denies abdominal pain, Denies constipation, Denies GI cramping, Denies diarrhea and Denies vomiting Psychiatric: Psychiatric: Denies anxiety PMFSH Past Medical History Surgical History No pertinent past surgical history Social History Social History (System 07/22/23 @ 10:50 by Aure Ahmadi) Alcohol intake: never Advance Directives: No Advance Directives Information Provided: No Physical Exam ED Vital Signs: Vital Signs - 24 hr 01/09/25 18:31 01/09/25 18:54 Temperature 97.4 F 97.4 F Pulse Rate 106 H 106 H Respiratory Rate 18 18 Blood Pressure 121/57 L 121/57 L Pulse Oximetry 99 99 Oxygen Delivery Method Room Air Room Air BMI result Body Mass Index 38.2 Const General: alert, awake and Physically active Resp Effort & Inspection: normal respiratory effort Auscultation: clear to auscultation bilaterally Cardio Rate: regular rate Rhythm: regular rhythm GI Other: Abdomen is soft and nontender. No peritoneal signs. Medical Decision Making Medical Decision Making MDM Narrative: 24-year-old female , positive test at home as well as beta quant of 2673 on January 05. Patient without any acute complaints at this time. No abdominal pain vaginal discharge bleeding or spotting. Patient is also requesting to know if it is safe to travel by airplane. At this time based on the patient's history and exam, this would be safe to do so however if anything changes including development of any abdominal pain, fevers, vaginal bleeding or spotting or any other concern patient has been advised to return immediately to the emergency department. OBGYN referral has been provided. Reviewed all discharge instructions. No further questions at this time. Differential Diagnosis Differential Diagnoses: The differential diagnosis associated with the presentation includes UTI While exam External Record Review External record reviewed: Outpatient record Discharge Plan Discharge Clinical Impression: Patient Disposition: Home, Self-Care Instructions: (ED) Additional Instructions: Your blood hormone level was 2673 on January 05. Continue vitamins. Follow up with OBGYN referral. Call Friday to schedule follow up if you do not hear from [facility]. Follow-up with your primary care provider. Call this week to schedule a follow-up appointment. Return to the emergency department if you have any worsening of symptoms, or any concerns. Get well soon! Prescriptions: No Action ibuprofen 400 mg tablet 400 mg PO TID Qty: 10 0RF meclizine [Dramamine Less Drowsy] 25 mg tablet 25 mg PO TID PRN (Reason: dizziness) Qty: 20 0RF Referrals: Gerard Schultz MD [Physician, IT SOFTWARE DEVELOPER] Interventions: ED Discharge Assessment Last Done: 01/09/25 18:54 Discharge Date/Time: 01/09/25 18:55 Print Language: Romanian
--- OUTSIDE RECORDS SUMMARY | 2025-01-09 18:51 | XMS_ITS | Encounter Summary ---
Author Organization [employer] Address [address] [place] [address] 7 [place] [address] Care Team Providers Care Assistant Kitchen Manager Name Role Phone Faviola Roy Primary Care Provider [phone] Encounter Details Date Type Department Care Team (Late st Contact Info) Description 09/11/2022 Orders Only [facility] [address] [place] [address] Faviola Roy FNP [address] [place] [address] Dietary iron deficiency without anemia (Primary Dx) [...] EDT) Ferritin 13 10 - 122 ng/mL [facility] 06/10/2023 12:0 3 PM EDT 06/10/2023 3:56 PM EDT us Faviola Phalen HOSPITAL SECRETARY LAB BLOOD ORDERABLES Final Res ult Performing Organization Address [facility]/ZIP Co de Phone Number [facility] [address] [place] [address] [phone] * Iron And Total Iron Binding Capacity (06/10/2023 12:03 PM EDT) Iron 105 30 - 160 mcg/dL [facility] Total Iron Binding Capacity 377 228 - 428 mcg/dL [facility] Percent Iron Saturation 28 15 - 50 % [facility] Unsaturated Iron Binding 272 ug/dL [facility] 06/10/2023 12:0 3 PM EDT 06/10/2023 3:56 PM EDT us Faviola Phalen HOSPITAL SECRETARY LAB BLOOD ORDERABLES Final Res ult Performing Organization Address [facility]/ZIP Co de Phone Number [facility] [address] [place] [phone] * (ABNORMAL) CBC auto differential (06/10/2023 12:03 PM EDT) White Blood Count 9.1 4.8 - 10.8 X10*3/uL [facility] Red Blood Count 5.07 4.20 - 5.50 X10*6/uL [facility] Hemoglobin 14.0 12.0 - 16.0 g/dl [facility] Hematocrit 43.5 37.0 - 47.0 % [facility] Mean Corpuscular Volume 85.8 80.0 - 98.0 fL [facility] Mean Corpuscular Hemoglobin 27.6 27.0 - 33.0 pg [facility] Mean Corpuscular HGB Conc 32.2 31.0 - 35.0 g/dl [facility] Red Cell Distribution Width 12.4 11.0 - 16.0 % [facility] Platelet Count 405(H) 160 - 400 X10*3/uL [facility] Mean Platelet Volume 9.9 9.4 - 12.3 fL [facility] Neutrophils Percent Auto 49.7 45 - 73 % [facility] Imm Gran Pct Auto 0.2 0.0 - 0.4 % [facility] Lymphocytes Percent Auto 38.9 20 - 40 % [facility] Monocytes Percent Auto 7.0 2 - 11 % [facility] Eosinophils Percent Auto 3.8 0 - 4 % [facility] Basophils Percent Auto 0.4 0 - 2 % [facility] NRBC Pct Auto 0.0 0.0 - 0.2 /100WBC [facility] Neutrophils Absolute Auto 4.5 2.0 - 8.3 x10*3/uL [facility] Imm Gran Abs Auto 0.02 0.00 - 0.03 X10*3/uL [facility] Lymphocytes Absolute Auto 3.5 1.2 - 4.9 X10*3/uL [facility] Monocytes Absolute Auto 0.6 0.1 - 1.2 X10*3/uL [facility] Eosinophils Absolute Auto 0.3 0.0 - 0.4 X10*3/uL [facility] Basophils Absolute Auto 0.0 0.0 - 0.2 X10*3/uL [facility] NRBC Abs Auto 0.000 0.0 - 0.012 X10*3/uL [facility] 06/10/2023 12:0 3 PM EDT 06/10/2023 1:14 PM EDT us Faviola SEARS LAB BLOOD ORDERABLES Final Res ult [facility] [address] [place] [phone] [phone] documented in this encounter Visit Diagnoses Diagnosis Dietary iron deficiency without anemia- Primary documented in this encounter Additional Health Concerns Assessment Noted Time PHQ-9 Depression Total Score: 0 02/13/19 23 1:59 PM EST documented as of this encounter Care Teams Assistant Kitchen Manager Relationship Specialty Start Date End Date Faviola Roy FNP [address] [place] [address] PCP - General Family Medicine 10/05/21 documented as of this encounter
--- OUTSIDE RECORDS SUMMARY | 2025-01-09 18:51 | XMS_ITS | Encounter Summary ---
Author Organization [employer] Address [address] [facility] [address] [place] [address] Care Team Providers Care Business Performance Advisor Name Role Phone Faviola Roy Primary Care Provider [phone] Encounter Details Date Type Department Care Team ([facility] st Contact Info) Description 01/05/2025 Telephone [facility]INE [address] [place] [address] Faviola Roy FNP [address] [place] [address] Social History Tobacco Use Types Packs/Day Years [...] Telephone Encounter - Nadya Pollock RN - 01/05/2025 4:27 PM EST TC to pt. Pt states that lab was able to figure it out and was able to find test and took specimen already. Advised for pt to set up MyChart for results. Activiation code sent to pt phone. * Telephone Encounter - Nadya Pollock RN - 01/05/2025 4:06 PM EST Spoke with [facility] phlebotomy on site at [facility]. Reviewed system, order does not directly appear on phlebotomy pop up screen but when printing pt labels for specimens, order appears on labels. Phlebotomy advised for to to try again to go to [facility] lab site or come in on Friday to [facility] for phlebotomy. * Telephone Encounter - Marco Mcginnis - 01/05/2025 2:51 PM EST Tc from pt calling in regards to message prior stating [facility] labs did not have orders for pt. * Telephone Encounter - Татьяна Shultz RN - 01/05/2025 12:09 PM EST Called pt regarding positive home test, spoke to pt. Pt states LMP was 11/04 and she took a home test yesterday which resulted positive. Pt states mild nausea but no other current symptoms. Advised to come in for confirmatory blood test and we will go from there. Pt also advised caution with any OTC medications, good nutrition, and call back as needed. Pt understands and agrees with plan. * Telephone Encounter - Marta Stone - 01/05/2025 11:18 AM EST Tc from pt stated took a test and was positive. Pcp GISELLA Roy documented in this encounter Plan of Treatment Not on file documented as of this encounter Procedures Procedure Name Priority Date/Time Associated Diagnosis Comments HCG, TOTAL, QN Routine 01/05/2025 3:09 PM EST Encounter for test, result unknown documented in this encounter Results * hCG, Total, Quantitative (01/05/2025 3:09 PM EST) HCG Quantitative 2,673 mIU/mL [facility] Comment:Weeks post LMP Appro ximate hCG(Last Menstrual Period) Range (mIU/ml)3 - 4 weeks 9 - 1304 - 5 weeks 75 - 2,6005 - 6 weeks 850 - 20,8006 - 7 weeks 4000 - 100,2007 - 12 weeks 11,500 - 289,10830 - 16 weeks 18,300 - 137,93104 - 29 weeks (2nd trimester) 1,400 - 53,65043 - 41 weeks (3rd trimester) 940 - 60,000The Siu B- hCG assay is used for the early detection ofpregnancy; it cannot be used to diagnose any conditionunrelated to . If a B-hCG level is not supportedby the clinical evidence, results should be confirmed by analternative method (qualitative urine hCG, for example). Blood Venous blood specimen / Unknown 01/05/2025 3:09 PM EST 01/05/2025 6:09 PM EST us Faviola SE[facility] LAB BLOOD ORDERABLES Final Res ult [facility] [address] [place] [address] [phone] documented in this encounter Visit Diagnoses Diagnosis Encounter for test, result unknown documented in this encounter Additional Health Concerns Assessment Noted Time PHQ-9 Depression Total Score: 0 11/17/19 25 6:08 PM EDT documented as of this encounter Care Teams Business Performance Advisor Relationship Specialty Start Date End Date Faviola Roy FNP [address] [place] [phone] PCP - General Family Medicine 10/05/21 documented as of this encounter
--- OUTSIDE RECORDS SUMMARY | 2025-01-09 18:51 | XMS_ITS | Clinical Summary ---
Author Organization [facility] [address] [facility] Address [address] [place] [phone] Phone Care Team Providers Care Embosser Operator Name Role Phone Physician, No Pcp Primary Care Provider Unavaila ble Allergies No known active allergies Medications vitamin iron fum-folic acid 27-0.8 mg per tabletIndication s:Attempting to conceive Take 1 tablet by mouth 1 (one) time each day. 30 each 11 10/05/2024 Active Social History Tobacco Use Types Packs/Day Years [...] 08/31/2024 Social Influencers of Health Screening 08/31/2024 COVID-19 Vaccine ( season) 2024 04/09/2024, 07/21/2023, 03/26/2022, Additional history exists Influenza Vaccine (#1) 2024 , 11/28/2021, 12/29/2020, [...] 11/01/2013 Hepatitis A Vaccines Completed 05/03/2016, 09/11/19 Meningococcal ACWY Vaccine Completed 12/16/2018, Hepatitis B Vaccines Completed 09/09/2022, 02/13/2022, 12/28/2021, Additional history exists HIV Screening Completed 04/09/2024, 09/09/2022 Pneumococcal Vaccine: Pediatrics (0 to 5 Years) and At-Risk Patients (6 to 49 Years) Aged Out No longer eligible based on patient's age to complete this topic RSV Immunization Patients Under 20 months Aged Out No longer eligible based on patient's age to complete this topic Insurance MEDICAID - [place] Care Teams Embosser Operator Relationship Specialty Start Date End Date Physician, No Pcp PCP - General 10/01/24
--- OUTSIDE RECORDS SUMMARY | 2025-01-09 18:51 | XMS_ITS | Clinical Summary ---
Author Organization [employer] Address [address] [place] [address] [address] [place] [address] Care Team Providers Care Rv Technician Name Role Phone Faviola Roy RENU Primary Care Provider [phone] Allergies Active Allergy Reactions Criticality Noted Date [...] Multiple food allergies 08/10/2024 Overview (08/10/2024): 03/11/24: [facility] Allergy - Dr. Sanchez. Sheaal for [...] Encounters Date Type Department Care Team Description 01/05/2025 Telephone [facility] [address] [place] [address] Faviola Roy FNP 12/09/2024 Telephone [facility] [address], [place] [phone] Faviola Roy FNP ER Follow-up 11/24/2024 Results Follow-Up [facility] [address], [place] [phone] Faviola Roy FNP Hemoglobin A1c, Comprehensive Metabolic Panel, CBC auto differential, Additional followed-up results: 5 11/23/2024 Telephone [facility] [address] [place] [address] Faviola Roy FNP Results 11/15/2024 Orders Only [facility] [address], [place] [phone] Faviola Roy FNP 11/12/2024 2:45 PM EDT Office Visit [facility] [address] [place] [address] Faviola Roy FNP Encounter for routine history and physical examination of adult (Primary Dx); Encounter for immunization; Healthcare maintenance; Dietary counseling; Exercise counseling; Multiple food allergies; Iron deficiency 11/12/2024 Travel 11/05/2024 Patient Outreach [facility] [address], [place] [phone] Faviola Roy FNP Pre-visit Planning (SDOH negative, [...] Vaccine (1 of 2 - Standard) 2018 COVID-19 Vaccine ( season) 2024 04/09/2024, 07/21/2023, 03/26/2022, Additional history exists Disability Screening 08/06/2025 08/06/2024 SDOH Screening 11/05/2025 11/05/2024 Chlamydia and Gonorrhea Screening 11/15/2025 11/15/2024, 04/09/2024, 09/29/2023, Additional history exists Alcohol/Substance Use Screening 11/16/2025 11/16/2024 Depression Screening 11/16/2025 11/16/2024, 11/17/19 25 Family Planning (PISQ) 11/16/2025 11/16/2024 Tobacco Screening [...] Completed 09/09/2022, 02/13/2022, 12/28/2021, Additional history exists Influenza Vaccine Completed 11/12/2024, [...] PM EST Encounter for test, result unknown HCG, QL, URINE Routine 12/08/2024 9:09 PM EDT URINALYSIS, COMPLETE, WITH REFLEX TO CULTURE Routine 12/08/2024 9:09 PM EDT IRON AND TOTAL IRON BINDING CAPACITY Routine 12/08/2024 8:51 PM EDT COMPREHENSIVE METABOLIC PANEL Routine 12/08/2024 8:51 PM EDT CBC WITH AUTO DIFFERENTIAL Routine 12/08/2024 8:51 [...] Recently Relevant to Health Maintenance Results * hCG, Total, Quantitative (01/05/2025 3:09 PM EST) HCG Quantitative 2,673 mIU/mL [facility] Comment:Weeks post LMP Appro ximate hCG(Last Menstrual Period) Range (mIU/ml)3 - 4 weeks 9 - 1304 - 5 weeks 75 - 2,6005 - 6 weeks 850 - 20,8006 - 7 weeks 4000 - 100,2007 - 12 weeks 11,500 - 289,25816 - 16 weeks 18,300 - 137,70350 - 29 weeks (2nd trimester) 1,400 - 53,01889 - 41 weeks (3rd trimester) 940 - [...] EST 01/05/2025 6:09 PM EST us Faviola Roy QUALITY CONTROL CHECKER LAB BLOOD ORDERABLES Final Res ult [facility] [address] [place] [phone] * (ABNORMAL) Urinalysis, Complete, with Reflex to Culture (12/08/2024 9:09 PM EDT) Color Urine Yellow [facility] Appearance Urine Clear [facility] PH 5.5 5.0 - 9.0 [facility] Glucose Urine UA Negative Negative mg/dL [facility] Urine Blood Trace(A) Negative [facility] Specific Nixa - Urine 1.015 1.005 - 1.025 [facility] Urine Protein Negative Neg-Trace mg/dL [facility] Urine Ketones Negative Negative mg/dL [facility] Nitrite Urine Negative Negative [facility] Leukocyte Esterase Urine Negative Negative [facility] RBC Urine 0-2 0 - 2 /HPF [facility] Urine WBC 0-5 0 - 5 /HPF [facility] Urine Squamous Epithelial Cell 3-5 0 - 2 /HPF [facility] Urine Bacteria None Seen None Seen [facility] Hyaline Casts, Urine 0-2 0 - 2 /LPF [facility] 12/08/2024 9:09 PM EDT 12/08/2024 9:12 PM EDT Narrative [facility] - 12/08/2024 10:00 PM EDT [id number], Clean Catch us Generic External Data Provider LAB URINE ORDERAB LES Final Result [facility] [address] [place] [address] [phone] * HCG, Qualitative, Urine (12/08/2024 9:09 PM EDT) Urine NEGATIVE NEGATIVE [facility] Comment:This test was develo ped to detect early . Falsenegative results may occur after the 5th - 7th week ofpregnancy when using this test method. If clinicallyindicated, consider a serum hCG. 12/08/2024 9:09 PM EDT 12/08/2024 9:12 PM EDT us Generic External Data Provider LAB URINE ORDERAB LES Final Result [facility] [address] [place] [address] [phone] * (ABNORMAL) CBC auto differential (12/08/2024 8:51 PM EDT) Only the most recent of2 resultswithin the time period is included. White Blood Count 11.0(H) 4.8 - 10.8 X10*3/uL [facility] Red Blood Count 4.89 4.20 - 5.50 X10*6/uL [facility] Hemoglobin 12.7 12.0 - 16.0 g/dl [facility] Hematocrit 39.9 37.0 - 47.0 % [facility] Mean Corpuscular Volume 81.6 80.0 - 98.0 fL [facility] Mean Corpuscular Hemoglobin 26.0(L) 27.0 - 33.0 pg [facility] Mean Corpuscular HGB Conc 31.8 31.0 - 35.0 g/dl [facility] Red Cell Distribution Width 12.8 11.0 - 16.0 % [facility] Platelet Count 359 160 - 400 X10*3/uL [facility] Mean Platelet Volume 9.1(L) 9.4 - 12.3 fL [facility] Neutrophils Percent Auto 54.8 45 - 73 % [facility] Imm Gran Pct Auto 0.4 0.0 - 0.4 % [facility] Lymphocytes Percent Auto 36.7 20 - 40 % [facility] Monocytes Percent Auto 6.0 2 - 11 % [facility] Eosinophils Percent Auto 1.6 0 - 4 % [facility] Basophils Percent Auto 0.5 0 - 2 % [facility] NRBC Pct Auto 0.0 0.0 - 0.2 /100WBC [facility] Neutrophils Absolute Auto 6.0 2.0 - 8.3 x10*3/uL [facility] Imm Gran Abs Auto 0.04(H) 0.00 - 0.03 X10*3/uL [facility] Lymphocytes Absolute Auto 4.0 1.2 - 4.9 X10*3/uL [facility] Monocytes Absolute Auto 0.7 0.1 - 1.2 X10*3/uL [facility] Eosinophils Absolute Auto 0.2 0.0 - 0.4 X10*3/uL [facility] Basophils Absolute Auto 0.1 0.0 - 0.2 X10*3/uL [facility] NRBC Abs Auto 0.000 0.0 - 0.012 X10*3/uL [facility] 12/08/2024 8:51 PM EDT 12/08/2024 8:54 PM EDT Generic External Data Provider LAB BLOOD ORDERAB LES Final Result Performing Organization Address [facility]/ZIP Co de Phone Number [facility] [address] [place] [phone] * Iron And Total Iron Binding Capacity (12/08/2024 8:51 PM EDT) Only the most recent of2 resultswithin the time period is included. Iron 42 30 - 160 mcg/dL [facility] Total Iron Binding Capacity 285 228 - 428 mcg/dL [facility] Percent Iron Saturation 15 15 - 50 % [facility] Unsaturated Iron Binding 243 ug/dL [facility] 12/08/2024 8:51 PM EDT 12/08/2024 8:54 PM EDT us Generic External Data Provider LAB BLOOD ORDERAB LES Final Result Performing Organization Address [facility]/ZIP Co de Phone Number [facility] [address] [place] [phone] * (ABNORMAL) Comprehensive Metabolic Panel (12/08/2024 8:51 PM EDT) Only the most recent of2 resultswithin the time period is included. Sodium 140 135 - 145 mmol/L [facility] Potassium 3.6 3.3 - 5.1 mmol/L [facility] Chloride 110(H) 96 - 108 mmol/L [facility] Carbon Dioxide 21(L) 22 - 29 mmol/L [facility] Anion Gap 13 12 - 20 [facility] Urea Nitrogen (BUN) 13 9 - 16 mg/dL [facility] Creatinine, Serum 0.85 0.5 - 1.4 mg/dL [facility] Creatinine Clr Calc Pharmacy 115.6 [facility] Comment:Provided height and weight: 170.18 cm,84.005 kg.eGFR (calculated from the MDRD study equation) and eCrCl(calculated from the Cockcroft-Gault equation) are based ondifferent parameters and may not yield comparable results.If eCrCl result is absurd, please check patient'sheight/weight. Estimated Glomerular Filt Rate >60 [facility] Comment:Chronic Kidney Disea se: Estimated GFR < 60 mL/min/1.91q5Fgeoom Kidney Disease: Estimated GFR < 15 mL/min/1.73m2 Glucose 137(H) 60 - 115 mg/dL [facility] Calcium 9.0 8.4 - 10.2 mg/dL [facility] Bilirubin, Total 0.2 0.0 - 1.0 mg/dL [facility] Aspartate Amino Transferase 16 5 - 31 U/L [facility] Alanine Aminotransferase 9 0 - 31 U/L [facility] Total Protein 7.3 6.5 - 8.0 g/dL [facility] Albumin Level 4.1 3.5 - 5.0 g/dL [facility] Alkaline Phosphatase 65 39 - 117 U/L [facility] 12/08/2024 8:51 PM EDT 12/08/2024 8:54 PM EDT us Generic External Data Provider LAB BLOOD ORDERAB LES Final Result [facility] [address] [place] [address] [phone] * HIV-1/2 Antigen and Antibodies, Fourth Generation, with Reflexes (11/30/2024 3:07 PM EDT) HIV AB/AG Nonreactive Nonreactive [facility] Comment:HIV-1 p24 Ag and/or HIV-1/HIV-2 Ab not detected.A test result that is nonreactive does not exclude thepossibility of exposure to or infection with HIV-1 and/orHIV-2. Nonreactive results in this assay for individualswith prior exposure to HIV-1 and/or HIV-2 may be due toantigen and antibody levels that are below the limit ofdetection of this assay.The [employer]About[employer] HIV Ag/Ab Combo assay result andsupplemental assay results should be interpreted inconjunction with the patient's clinical presentation,history and other laboratory results. If the results areinconsistent with clinical evidence, additional testing issuggested to confirm the result. Blood Venous blood specimen / Unknown 11/30/2024 3:07 PM EDT 11/30/2024 5:03 PM EDT us Faviola Roy [facility] LAB BLOOD ORDERABLES Final Res ult [facility] [address] [place] [address] [phone] * Lipid Panel, Standard (11/30/2024 3:07 PM EDT) Triglycerides 73 <150 mg/dL [facility] Comment:Desirable Triglyceri de: less than 150 mg/dLBorderline High Triglyceride 150-199 mg/dLHigh Triglyceride: 200-499 mg/dLVery High Triglyceride: greater than or equal to 5OO mg/dL Cholesterol 147 <200 mg/dL [facility] Comment:Desirable Cholestero l: less than 200 mg/dLBorderline High Cholesterol: 200-239 mg/dLHigh Cholesterol: greater than 239 mg/dL LDL Cholesterol Calculated 74 <100 mg/dL [facility] Comment:Desirable LDL: less than 100 mg/dLNear Optimal/Above Optimal LDL: 110- 129 mg/dLBorderline High LDL: 130-159 mg/dLHigh LDL: 160-189 mg/dLVery High LDL: greater than or equal to 190 mg/dL HDL Cholesterol 59 >40 mg/dL [facility] Comment:Desirable HDL: great er than 40 mg/dL Note: This HDL assay may give artificially low results in patients with liver disease. Blood Venous blood specimen / Unknown 11/30/2024 3:07 PM EDT 11/30/2024 5:03 PM EDT Faviola Roy [facility] LAB BLOOD ORDERABLES Final Res ult Performing Organization Address [facility] de Phone Number [facility] [address] [place] [address] [phone] * Hepatitis C Viral RNA, Quantitative, Real-Time PCR (11/15/2024 3:35 PM EDT) [facility] Hepatitis C Viral Load <15 NOT DETECTED NOT DETECTED IU/mL [facility] HCV Log PCR <1.18 NOT DETECTED NOT DETECTED Log IU/mL [facility] Comment:For additional infor momo, please refer tohttp://education.InteraXon/faq/ZNW62i4(This link is being provided for informational/educational purposes only.)THIS TEST WAS PERFORMED AT:[facility] [place] [id number] SIM MD Blood 11/15/2024 3:35 PM EDT 11/15/2024 3:35 PM EDT Faviola Roy [facility] LAB BLOOD ORDERABLES Final Res ult Performing Organization Address [facility] de Phone Number [facility] [address] [place] [phone] * Vitamin D 1,25 dihydroxy (11/15/2024 3:35 PM EDT) Vit D (1,25-Dihydroxy) Total 65 18 - 72 pg/mL [facility] VITAMIN D (1,25 OH) D3 65 pg/mL [facility] Vitamin D (1,25 OH) D2 <8 pg/mL [facility] Comment:Vitamin D3, 1,25(OH) 2 indicates both endogenousproduction and supplementation. Vitamin D2, 1,25(OH)2is an indicator of exogenous sources, such as diet orsupplementation. Interpretation and therapy are basedon measurement of Vitamin D,1,25(OH)2, Total.This test was developed and its analyticalperformance characteristics have been determinedby [employer] [place], [place].It has not been cleared or approved by the FDA. Thisassay has been validated pursuant to the CLIAregulations and is used for clinical purposes.THIS TEST WAS PERFORMED AT:[employer]/[id number] [place] [id number] GUEVARA MD,PHD 11/15/2024 3:35 PM EDT 11/15/2024 3:35 PM EDT Faviola SEARS LAB BLOOD ORDERABLES Final Res ult [facility] [address] [place] [phone] * RPR (Monitor) with Reflex to??Titer (11/15/2024 3:35 PM EDT) RPR (Monitor) w/Refl Titer NON-REACTI VE NON-REACT HILARIA [facility] Comment:THIS TEST WAS PERFOR MED AT:[employer] [facility] [address] [id number] SIM MD Rapid Plasma Reagin Ab Titer TNP [facility] Blood Venous blood specimen / Unknown 11/15/2024 3:35 PM EDT 11/15/2024 3:35 PM EDT us Faviola SEARS LAB BLOOD ORDERABLES Final Res ult Performing Organization Address [facility]/ZIP Co de Phone Number [facility] [address] [place] [phone] * TSH (11/15/2024 3:35 PM EDT) Thyroid Stimulating Hormone 1.12 0.32 - 4.0 uIU/mL [facility] Comment:TSH 3rd Generation ( [facility]) 11/15/2024 3:35 PM EDT 11/15/2024 3:35 PM EDT Faviola Roy [facility] LAB BLOOD ORDERABLES Final Res ult Performing Organization Address [facility] Co de Phone Number [facility] [address] [place] [phone] * Hemoglobin A1c (11/15/2024 3:35 PM EDT) Hemoglobin A1c 5.2 <6.0 % [facility] Comment:Hemoglobin A1C Refer ence Range Adults: 4.8 - 6.0 % Non diabetic: < 6.0 % Goal: < 7.0 %Additional Action Suggested: > 8.0 %Note: Hemoglobin A1c results are invalid for patients with abnormal amounts of HbF. Blood transfusions may impact the HbA1c concentration in the patient sample. Estimated Average Glucose 103 mg/dL [facility] Comment:eAG = Estimated ave rage glucose which is %A1C expressed asaverage glucose, using the formula of the A0T-WzyntdeQnrvkin Glucose study (ADAG), Diabetes Care, Vol.31,#8,Sep. 2007 Blood Venous blood specimen / Unknown 11/15/2024 3:35 PM EDT 11/15/2024 3:35 PM EDT Faviola Roy [facility] LAB BLOOD ORDERABLES Final Res ult Performing Organization Address [facility] Co de Phone Number [facility] [address] [place] [phone] * Ferritin (11/15/2024 3:35 PM EDT) Ferritin 29 10 - 122 ng/mL [facility] Blood Venous blood specimen / Unknown 11/15/2024 3:35 PM EDT 11/15/2024 3:35 PM EDT Faviola Roy QUALITY CONTROL CHECKER LAB BLOOD ORDERABLES Final Res ult [facility] [address] [place] [address] [phone] * Chlamydia/Trichomonas/Neisseria gonorrhoeae, PCR, Urine (11/15/2024 3:17 PM EDT) CT PCR, Urine NOT DETECTED Not Detect. [facility] Comment:A not detected test result [...] NG PCR, Urine NOT DETECTED Not Detect. [facility] Comment:A not detected test result [...] 11/15/2024 3:56 PM EDT us Faviola Roy [facility] LAB URINE ORDERABLES Final Res ult [facility] [address] [place] [phone] * Pap Smear (09/29/2023 11:47 AM EDT) SOURCE: SEE NOTE [facility] Comment:None given Report Status: [facility] Clinical Information: SEE NOTE [facility] Comment:None given LMP: SEE NOTE [facility] Comment:NONE GIVEN Prev. PAP: SEE NOTE [facility] Comment:NONE GIVEN Prev. BX: SEE NOTE [facility] Comment:NONE GIVEN Statement Of Adequacy: SEE NOTE [facility] Comment:Satisfactory for jesus luation.Endocervical/transformation zone componentpresent. General Categorization: [facility] Interpretation/Result: SEE NOTE [facility] Comment:Cytology Results: Ne gative for intraepitheliallesion or malignancy. Cytology Comment SEE NOTE [facility] Comment:This Pap test has be en evaluated with computerassisted technology. Barrel Scraper: SEE NOTE [facility] Comment:CMB, CT(ASCP) CT Scr eening Location: [facility] [address] [address]Gztnp preparation performed at: [facility], [address] [place] [id number] CLIA No. [id number] Review Barrel Scraper: [facility] Pathologist [facility] PAP Infection [facility] See Note SEE [facility] Comment:EXPLANATORY NOTE:The Pap is a screening test for cervical cancer. It isnot a diagnostic test and is subject to false negativeand false positive results. It is most reliable when asatisfactory sample, regularly obtained, is submittedwith relevant clinical findings and history, and whenthe Pap result is evaluated along with historic andcurrent clinical information.THIS TEST WAS PERFORMED AT:[employer] [address] [id number] MERATI,MD Pap Vial Vaginal structure / Unknown 09/29/2023 11:47 AM EDT 09/29/2023 7:13 PM EDT Narrative [facility] - 10/03/2023 2:51 PM EDT SEE SCANNED RESULTS IN EMR us Faviola Lucianolarisa [facility] LAB PATHOLOGY ORDERABLES Final Result [facility] [address] [place] [phone] from Last 3 Months or Most Recently Relevant to Health Maintenance Insurance [facility] C3 Care Teams Rv Technician Relationship Specialty Start Date End Date Faviola Roy FNP [address] [place] [address] PCP - General Family Medicine 10/05/21
[2025-01-09 18:54] VITALS: BP 121/57; PULSE 106; RESP 18; TEMP 36.3; O2SAT 99
== END 2025-01-09 18:55 | disposition home or self-care (01) ==
PROVIDERS: Emergency Provider Emergency Medicine Emergency Medical Services; PCP Registered Nurse
DX: Z32.01 Encounter for pregnancy test, result positive (principal)
CPT/HCPCS: 99282

== ENCOUNTER 2025-01-11 22:34 | Emergency (ER) | payer MEDICAID, SELFPAY ==
[2025-01-11 22:43] VITALS: BP 114/56; PULSE 114; RESP 20; TEMP 36.6; O2SAT 100; BMI 37.6
--- NOTE | 2025-01-11 22:49 | ED.GENADULT ---
HPI - General Adult General Chief complaint: Abdominal Pain Stated complaint: 1MO preg/feels nauseous, vomiting, chills Time Seen by Provider: 01/12/25 03:07 History of Present Illness ED Provider: Richard AN narrative: The patient is a 24-year-old female who recently learned that she was for the 1st time. She says that her last period was on December 05. She was seen at the [facility] on January 05 where she had a positive test following a positive test at home. She came to the emergency room 3 days ago on January 09 because she wanted to confirm her . The provider at that visit was able to access the beta hCG test that has been ordered through the [facility]. The beta hCG was 2673 on January 05. No additional testing was done at the previous emergency room visit on January 09. The patient had no other complaints other than a wish to confirm her . The patient comes to the emergency room tonight because for the 1st time she woke up with nausea and had a few episodes of vomiting. She worked in the afternoon from 16:00 to 20:00. She had nausea throughout her shift at work. 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 She arrived in the emergency room at 04/01/2033, about 2-1/2 hours after she finished work. She has some mild discomfort in her epigastrium. No lower abdominal pain. No vaginal discharge. No vaginal bleeding. No urinary symptoms. Related Data Previous Rx's ?Medication ?Instructions ?Recorded ibuprofen 400 mg tablet 400 mg PO TID #10 tabs 05/02/20 meclizine 25 mg tablet (Dramamine 25 mg PO TID PRN dizziness #20 tabs 12/08/24 Less Drowsy) diphenhydramine HCl 25 mg capsule 25 mg PO TID PRN nausea and 01/12/25 vomiting #14 caps Allergies Allergy/AdvReac Type Severity Reaction Status Date / Time apple Allergy Itching Verified 01/11/25 22:44 isaacs Allergy Itching Verified 01/11/25 22:44 SEASONAL ALLERGIES Allergy Unknown ITCHY EYES Uncoded 12/08/24 20:37 Review of Systems Review of Systems: Yes all other systems are reviewed and are negative PMFSH Past Medical History Surgical History No pertinent past surgical history Social History Social History (System 07/22/23 @ 10:50 by Aure Ahmadi) Alcohol intake: never Advance Directives: No Physical Exam ED Vital Signs: Vital Signs - 24 hr 01/11/25 22:43 01/12/25 02:59 Temperature 98 F 98.1 F Pulse Rate 114 H 99 Respiratory Rate 20 Blood Pressure 114/56 L 123/59 L Pulse Oximetry 100 99 Oxygen Delivery Method Room Air BMI result Body Mass Index 37.6 Const Other: The patient is awake and alert. She does not appear in obvious distress. Orientation/consciousness: patient oriented x3 HENMT Other: The face is symmetrical. ?Mucous membranes moist. Eyes Other: Pupils are round equal, conjunctivae are clear, extraocular movements intact Neck Neck: Yes normal visual inspection, Yes full ROM and Yes no lymphadenopathy Resp Effort & Inspection: normal respiratory effort Auscultation: clear to auscultation bilaterally Cardio Rate: tachycardic Rhythm: regular rhythm Heart sounds: S1 normal heart sound present and S2 normal heart sound present GI Other: The abdomen is soft and nontender Skin Other: The skin is dry and unremarkable Neuro General: patient oriented x3, gait normal, tone normal, moves all extremities, no focal motor deficits and CN's II-XI intact bilaterally Extrem Other: There is no calf swelling or tenderness. No asymmetry. No peripheral edema. Course Course Course Narrative: Staci Reed, 01/11/25 7718 Medical screening exam performed. 24-year-old female 6 weeks presented hospital today for patient's nausea and vomiting since this morning. Complaining of some epigastric pain. Patient appears to be stable on exam currently. CBC, Chemistry, UA ordered. PO zofran ordered. Medications Administered Discontinued Medications Generic Name Dose Route Start Last Admin Trade Name Freq PRN Reason Stop Dose Admin Diphenhydramine HCl 25 mg 01/12/25 03:55 01/12/25 03:57 Diphenhydramine Hcl 50 Mg/Ml Vial IVPUSH 01/12/25 03:56 25 mg ONCE ONE Administration Sodium Chloride 1,000 mls @ 999 mls/hr 01/12/25 03:30 01/12/25 04:26 Ns IV 01/12/25 04:30 Infused .Q1H1M VENTURA Infusion Metoclopramide HCl 10 mg 01/12/25 03:17 01/12/25 03:46 Metoclopramide Hcl 10 Mg/2 Ml Vial IVPUSH 01/12/25 03:18 10 mg ONCE ONE Administration Ondansetron HCl 4 mg 01/11/25 22:49 01/11/25 22:51 Ondansetron Odt 4 Mg Tab.Nery CHINO 01/11/25 22:50 4 mg ONCE ONE Administration Medical Decision Making Medical Decision Making [facility] Narrative: The patient is a 24-year-old who was a proximally 5 weeks with her 1st . She comes to the emergency room with a 1 day history of upper abdominal discomfort and nausea and vomiting. She has no lower abdominal symptoms. No vaginal symptoms. No vaginal discharge or vaginal bleeding. I suspect that this is some degree of induced nausea. She was offered treatment orally versus IV. She preferred to receive IV treatment. An IV was placed. She was given IV metoclopramide and IV fluids. She had a an obvious reaction to the metoclopramide. She became acutely anxious and requested to be discharged. She was given 25 mg of Benadryl with improvement of the symptoms. Ultimately she felt better. There was no ongoing vomiting. She was able to tolerate oral intake. She has plans to travel to [place] this morning. She will be discharged to try to keep these plans. She has vitamins already. She was given a prescription for oral Benadryl that she may use for any ongoing nausea. She will be going to [place]. Lab Data 01/11/25 23:03 01/11/25 23:03 Labs: Lab Results 01/11/25 Range/Units 23:03 WBC 13.3 H (4.8-10.8) X10*3/uL RBC 4.96 (4.20-5.50) X10*6/uL Hgb 13.1 (12.0-16.0) g/dl Hct 39.9 (37.0-47.0) % MCV 80.4 (80.0-98.0) fL MCH 26.4 L (27.0-33.0) pg MCHC 32.8 (31.0-35.0) g/dl RDW 13.2 (11.0-16.0) % Plt Count 348 (160-400) X10*3/uL MPV 8.9 L (9.4-12.3) fL Immature Gran % (Auto) 0.3 (0.0-0.4) % Neut % (Auto) 76.1 H (45-73) % Lymph % (Auto) 18.4 L (20-40) % Polk % (Auto) 4.6 (2-11) % Eos % (Auto) 0.4 (0-4) % Baso % (Auto) 0.2 (0-2) % Lymph # (Auto) 2.5 (1.2-4.9) X10*3/uL [place] # (Auto) 0.6 (0.1-1.2) X10*3/uL Eos # (Auto) 0.1 (0.0-0.4) X10*3/uL Baso # (Auto) 0.0 (0.0-0.2) X10*3/uL Abs Immat Gran (auto) 0.04 H (0.00-0.03) X10*3/uL Absolute Neuts (auto) 10.1 H (2.0-8.3) x10*3/uL Absolute Nucleated RBC 0.000 (0.0-0.012) X10*3/uL Nucleated RBC % (auto) 0.0 (0.0-0.2) /100WBC Sodium 140 (135-145) mmol/L Potassium 3.9 (3.3-5.1) mmol/L Chloride 107 (96-108) mmol/L Carbon Dioxide 22 (22-29) mmol/L Anion Gap 15 (12-20) BUN 10 (9-16) mg/dL Creatinine 0.70 (0.5-1.4) mg/dL Estim Creat Clear Calc 118.7 Estimated GFR > 60 Random Glucose 95 (60-115) mg/dL Calcium 9.1 (8.4-10.2) mg/dL Urine Color Yellow Urine Appearance Clear Urine pH 7.0 (5.0-9.0) Ur Specific [place] 1.015 (1.005-1.025) Urine Protein Negative (Neg-Trace) mg/dL Urine Glucose (UA) Negative (Negative) mg/dL Urine Ketones 15 (Negative) mg/dL Urine Blood Negative (Negative) Urine Nitrite Negative (Negative) Ur Leukocyte Esterase Negative (Negative) Discharge Plan Discharge Clinical Impression: Nausea and vomiting, 5 weeks gestation of Patient Disposition: Home, Self-Care Additional Instructions: Please continue the vitamins you are taking. You has been given a prescription for the medication diphenhydramine that you may use as needed for nausea. Please arrange for follow up through [facility] women services. Go to the nearest emergency room if feeling significantly worse. Prescriptions: New diphenhydramine HCl 25 mg capsule 25 mg PO TID PRN (Reason: nausea and vomiting) Qty: 14 0RF No Action ibuprofen 400 mg tablet 400 mg PO TID Qty: 10 0RF meclizine [Dramamine Less Drowsy] 25 mg tablet 25 mg PO TID PRN (Reason: dizziness) Qty: 20 0RF Referrals: [facility] [Provider Group] [facility] [place] Group] Interventions: ED Discharge Assessment Last Done: 01/12/25 04:26 Discharge Date/Time: 01/12/25 04:32 Print Language: [place] Islander
[2025-01-11 23:23] LABS: Calcium 9.1 mg/dL (8.4-10.2); Chloride 107 mmol/L (96-108); Potassium 3.9 mmol/L (3.3-5.1); Sodium 140 mmol/L (135-145)
[2025-01-12 02:59] VITALS: BP 123/59; PULSE 99; TEMP 36.7; O2SAT 99
--- OUTSIDE RECORDS SUMMARY | 2025-01-12 03:25 | XMS_ITS | Encounter Summary ---
Author Organization [employer] Address [address] [place] [address] [address] [place] [address] Care Team Providers Care C D Stripper Name Role Phone Faviola Roy RENU Primary Care Provider [phone] Reason for Visit * Reason Onset Date Comments ER Follow-up 01/11/2025 Encounter Details Date Type Department Care Team (Latest Contact Info) Description 01/11/2025 Results Follow-Up [facility] [address] [place] [address] Nadya Pollock RN hCG, Total, Quantitative Social History Tobacco Use Types Packs/Day Years [...] Telephone Encounter - Nadya Pollock RN - 01/11/2025 12:33 PM EST TC to pt. Pt states is going to call [facility] [place] [place] [facility] today for follow up. Pt states is not currently taking other medications other than prenatals for intention to continue . Pt states is experiencing nausea intermittently and wanting to know if medication she can take. Advised will review with PCP for antinausea medication recommendation for . Pt verbalized understanding and agreement with plan. * Telephone Encounter - Nadya Plolock RN - 01/11/2025 12:32 PM EST ----- Message from Faviola Roy sent at 01/11/2025 11:56 AM EST ----- HCG test suggestive of . She was recently seen at [facility] [place] [place] ED and referred to [facility] [place] [place] [facility] for care. Please see if she is taking any meds besides the . Please also review options if this was not intended . Please let me know if anything further needed on our end. Thank you! ----- Message ----- From: Interface, Lab Results In Sent: 01/05/2025 11:08 PM EST To: Faviola Phalen, SENIOR RESEARCH MANAGER documented in this encounter Plan of Treatment Not on file documented as of this encounter Visit Diagnoses Not on filedocumented in this encounter Additional Health Concerns Assessment Noted Time PHQ-9 Depression Total Score: 0 11/17/19 25 6:08 PM EDT documented as of this encounter Care Teams C D Stripper Relationship Specialty Start Date End Date Faviola Roy FNP [address] [place] [phone] PCP - General Family Medicine 10/05/21 documented as of this encounter
--- OUTSIDE RECORDS SUMMARY | 2025-01-12 03:25 | XMS_ITS | Clinical Summary ---
Author Organization [facility] Address [address] [place] [phone] Phone Care Team Providers Care Commercial Artist Lettering Name Role Phone Physician, No Pcp Primary [...] topic Insurance MEDICAID - [place] Care Teams Commercial Artist Lettering Relationship Specialty Start Date End Date Physician, No Pcp PCP - General 10/01/24
--- OUTSIDE RECORDS SUMMARY | 2025-01-12 03:25 | XMS_ITS | Encounter Summary ---
Author Organization [employer] Address [address] [place] [address] [address] [place] [address] Care Team Providers Care Inhalation Therapist Name Role Phone Faviola Roy Primary Care Provider [phone] Encounter Details Date Type Department Care Team (Late st Contact Info) Description 09/11/2022 Orders Only [facility] [address] [place] [address] Faviola Roy FNP [address] [place] [address] Dietary iron deficiency without anemia (Primary Dx) [...] EDT) Ferritin 13 10 - 122 ng/mL [facility] 06/10/2023 12:0 3 PM EDT 06/10/2023 3:56 PM EDT us Faviola Phalen ELECTROCARDIOGRAPH TECHNICIAN LAB BLOOD ORDERABLES Final Res ult Performing Organization Address [facility]/ZIP Co de Phone Number [facility] [address] [place] [phone] * Iron And Total Iron Binding Capacity (06/10/2023 12:03 PM EDT) Iron 105 30 - 160 mcg/dL [facility] Total Iron Binding Capacity 377 228 - 428 mcg/dL [facility] Percent Iron Saturation 28 15 - 50 % [facility] Unsaturated Iron Binding 272 ug/dL [facility] 06/10/2023 12:0 3 PM EDT 06/10/2023 3:56 PM EDT us Faviola Phalen ELECTROCARDIOGRAPH TECHNICIAN LAB BLOOD ORDERABLES Final Res ult Performing Organization Address [facility]/ZIP Co de Phone Number [facility] [address] [place] [phone] * (ABNORMAL) CBC auto differential (06/10/2023 12:03 PM EDT) White Blood Count 9.1 4.8 - 10.8 X10*3/uL [facility] Red Blood Count 5.07 4.20 - 5.50 X10*6/uL [facility] Hemoglobin 14.0 12.0 - 16.0 g/dl [facility] Hematocrit 43.5 37.0 - 47.0 % [facility] Mean Corpuscular Volume 85.8 80.0 - 98.0 fL [facility] Mean Corpuscular Hemoglobin 27.6 27.0 - 33.0 pg [facility] Mean Corpuscular HGB Conc 32.2 31.0 - 35.0 g/dl [facility] Red Cell Distribution Width 12.4 11.0 - 16.0 % [facility] Platelet Count 405(H) 160 - 400 X10*3/uL [facility] Mean Platelet Volume 9.9 9.4 - 12.3 fL [facility] Neutrophils Percent Auto 49.7 45 - 73 % [facility] Imm Gran Pct Auto 0.2 0.0 - 0.4 % [facility] Lymphocytes Percent Auto 38.9 20 - 40 % [facility] Monocytes Percent Auto 7.0 2 - 11 % [facility] Eosinophils Percent Auto 3.8 0 - 4 % [facility] Basophils Percent Auto 0.4 0 - 2 % [facility] NRBC Pct Auto 0.0 0.0 - 0.2 /100WBC [facility] Neutrophils Absolute Auto 4.5 2.0 - 8.3 x10*3/uL [facility] Imm Gran Abs Auto 0.02 0.00 - 0.03 X10*3/uL [facility] Lymphocytes Absolute Auto 3.5 1.2 - 4.9 X10*3/uL [facility] Monocytes Absolute Auto 0.6 0.1 - 1.2 X10*3/uL [facility] Eosinophils Absolute Auto 0.3 0.0 - 0.4 X10*3/uL [facility] Basophils Absolute Auto 0.0 0.0 - 0.2 X10*3/uL [facility] NRBC Abs Auto 0.000 0.0 - 0.012 X10*3/uL [facility] 06/10/2023 12:0 3 PM EDT 06/10/2023 1:14 PM EDT us Faviola SEARS LAB BLOOD ORDERABLES Final Res ult [facility] [address] [place] [phone] documented in this encounter Visit Diagnoses Diagnosis Dietary iron deficiency without anemia- Primary documented in this encounter Additional Health Concerns Assessment Noted Time PHQ-9 Depression Total Score: 0 02/13/19 23 1:59 PM EST documented as of this encounter Care Teams Inhalation Therapist Relationship Specialty Start Date End Date Faviola Roy FNP [address] [place] [address] PCP - General Family Medicine 10/05/21 documented as of this encounter
--- OUTSIDE RECORDS SUMMARY | 2025-01-12 03:25 | XMS_ITS | Clinical Summary ---
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 60 tablet 2 5 01/12/20 26 Active doxylamine (Unisom) 25 MG tablet Take 1 tablet (25 mg) by mouth if needed at bedtime for sleep or nausea. 30 tablet 1 5 02/10/19 26 Active Active Problems Problem Noted Date Diagnosed Date Multiple food allergies 08/10/2024 Overview (08/10/2024): 03/11/24: [facility] Allergy - Dr. Sanchez. Dori for possible food allergies and seasonal rhinitis. [...] Encounters Date Type Department Care Team Description 01/11/2025 Results Follow-Up [facility] [address] [place] [address] Nadya Pollock RN hCG, Total, Quantitative 01/05/2025 Telephone [facility] [address] [place] [address] Faviola Roy FNP 12/09/2024 Telephone [facility] [address] [place] [address] Faviola Roy FNP ER Follow-up 11/24/2024 Results Follow-Up [facility] [address] [place] [address] Faviola Roy FNP Hemoglobin A1c, Comprehensive Metabolic Panel, CBC auto differential, Additional followed-up results: 5 11/23/2024 Telephone [facility] [address] [place] [address] Faviola Roy FNP Results 11/15/2024 Orders Only [facility] [address] [place] [address] Faviola Roy FNP 11/12/2024 2:45 PM EDT Office Visit [facility] [address] [place] [address] Faviola Roy FNP Encounter for routine history and physical examination of adult (Primary Dx); Encounter for immunization; Healthcare maintenance; Dietary counseling; Exercise counseling; Multiple food allergies; Iron deficiency 11/12/2024 Travel 11/05/2024 Patient Outreach [facility] [address] [place] [address] Faviola Roy FNP Pre-visit Planning (SDOH negative, [...] Associated Diagnosis Comments BASIC METABOLIC PANEL Routine 01/11/2025 11:03 PM EST URINALYSIS WITH REFLEX TO MICROSCOPIC Routine 01/11/2025 11:03 PM EST CBC WITH AUTO DIFFERENTIAL Routine 01/11/2025 11:03 PM EST HCG, TOTAL, QN Routine 01/05/2025 3:09 PM [...] Recently Relevant to Health Maintenance Results * Urinalysis with Reflex to Microscopic (01/11/2025 11:03 PM EST) Color Urine Yellow [facility] Appearance Urine Clear [facility] PH 7.0 5.0 - 9.0 [facility] Glucose Urine UA Negative Negative mg/dL [facility] Urine Blood Negative Negative [facility] Specific [place] - Urine 1.015 1.005 - 1.025 [facility] Urine Protein Negative Neg-Trace mg/dL [facility] Urine Ketones 15 Negative mg/dL [facility] Nitrite Urine Negative Negative [facility] Leukocyte Esterase Urine Negative Negative [facility] 01/11/2025 11:0 3 PM EST 01/11/2025 11:09 PM EST us Generic External Data Provider LAB URINE ORDERAB LES Final Result [facility] [address] [place] [address] [phone] * (ABNORMAL) CBC auto differential (01/11/2025 11:03 PM EST) Only the most recent of3 resultswithin the time period is included. White Blood Count 13.3(H) 4.8 - 10.8 X10*3/uL [facility] Red Blood Count 4.96 4.20 - 5.50 X10*6/uL [facility] Hemoglobin 13.1 12.0 - 16.0 g/dl [facility] Hematocrit 39.9 37.0 - 47.0 % [facility] Mean Corpuscular Volume 80.4 80.0 - 98.0 fL [facility] Mean Corpuscular Hemoglobin 26.4(L) 27.0 - 33.0 pg [facility] Mean Corpuscular HGB Conc 32.8 31.0 - 35.0 g/dl [facility] Red Cell Distribution Width 13.2 11.0 - 16.0 % [facility] Platelet Count 348 160 - 400 X10*3/uL [facility] Mean Platelet Volume 8.9(L) 9.4 - 12.3 fL [facility] Neutrophils Percent Auto 76.1(H) 45 - 73 % [facility] Imm Gran Pct Auto 0.3 0.0 - 0.4 % [facility] Lymphocytes Percent Auto 18.4(L) 20 - 40 % [facility] Monocytes Percent Auto 4.6 2 - 11 % [facility] Eosinophils Percent Auto 0.4 0 - 4 % [facility] Basophils Percent Auto 0.2 0 - 2 % [facility] NRBC Pct Auto 0.0 0.0 - 0.2 /100WBC [facility] Neutrophils Absolute Auto 10.1(H) 2.0 - 8.3 x10*3/uL [facility] Imm Gran Abs Auto 0.04(H) 0.00 - 0.03 X10*3/uL [facility] Lymphocytes Absolute Auto 2.5 1.2 - 4.9 X10*3/uL [facility] Monocytes Absolute Auto 0.6 0.1 - 1.2 X10*3/uL [facility] Eosinophils Absolute Auto 0.1 0.0 - 0.4 X10*3/uL [facility] Basophils Absolute Auto 0.0 0.0 - 0.2 X10*3/uL [facility] NRBC Abs Auto 0.000 0.0 - 0.012 X10*3/uL [facility] 01/11/2025 11:0 3 PM EST 01/11/2025 11:09 PM EST us Generic External Data Provider LAB BLOOD ORDERAB LES Final Result [facility] [address] [place] [address] [phone] * Basic Metabolic Panel (01/11/2025 11:03 PM EST) Sodium 140 135 - 145 mmol/L [facility] Potassium 3.9 3.3 - 5.1 mmol/L [facility] Chloride 107 96 - 108 mmol/L [facility] Carbon Dioxide 22 22 - 29 mmol/L [facility] Anion Gap 15 12 - 20 [facility] Urea Nitrogen (BUN) 10 9 - 16 mg/dL [facility] Creatinine, Serum 0.70 0.5 - 1.4 mg/dL [facility] Creatinine Clr Calc Pharmacy 118.7 [facility] Comment:Provided height and weight: 149.86 cm,84.4 kg.eGFR (calculated from the MDRD study equation) and eCrCl(calculated from the Cockcroft-Gault equation) are based ondifferent parameters and may not yield comparable results.If eCrCl result is absurd, please check patient'sheight/weight. Estimated Glomerular Filt Rate >60 [facility] Comment:Chronic Kidney Disea se: Estimated GFR < 60 mL/min/1.80x4Xkhhjx Kidney Disease: Estimated GFR < 15 mL/min/1.73m2 Glucose 95 60 - 115 mg/dL [facility] Calcium 9.1 8.4 - 10.2 mg/dL [facility] 01/11/2025 11:0 3 PM EST 01/11/2025 11:09 PM EST us Generic External Data Provider LAB BLOOD ORDERAB LES Final Result [facility] [address] [place] [address] [phone] * hCG, Total, Quantitative (01/05/2025 3:09 PM EST) HCG Quantitative 2,673 mIU/mL [facility] Comment:Weeks post LMP Appro ximate hCG(Last Menstrual Period) Range (mIU/ml)3 - 4 weeks 9 - 1304 - 5 weeks 75 - 2,6005 - 6 weeks 850 - 20,8006 - 7 weeks 4000 - 100,2007 - 12 weeks 11,500 - 289,64964 - 16 weeks 18,300 - 137,96952 - 29 weeks (2nd trimester) 1,400 - 53,64166 - 41 weeks (3rd trimester) 940 - [...] 01/05/2025 6:09 PM EST us Faviola Roy HOTEL SERVICES SALES REPRESENTATIVE LAB BLOOD ORDERABLES Final Res ult Performing Organization Address City/[facility]/ZIP Co de Phone Number [facility] [address] [place] [address] [phone] * (ABNORMAL) Urinalysis, Complete, with Reflex to Culture (12/08/2024 9:09 PM EDT) Color Urine Yellow [facility] Appearance Urine Clear [facility] PH 5.5 5.0 - 9.0 [facility] Glucose Urine UA Negative Negative mg/dL [facility] Urine Blood Trace(A) Negative [facility] Specific [place] - Urine 1.015 1.005 - 1.025 [facility] Urine Protein Negative Neg-Trace mg/dL [facility] Urine Ketones Negative Negative mg/dL [facility] Nitrite Urine Negative Negative [facility] Leukocyte Esterase Urine Negative Negative [facility] RBC Urine 0-2 0 - 2 /HPF [facility] Urine WBC 0-5 0 - 5 /HPF [facility] Urine Squamous Epithelial Cell 3-5 0 - 2 /HPF [facility] Urine Bacteria None Seen None Seen [facility] Hyaline Casts, Urine 0-2 0 - 2 /LPF [facility] 12/08/2024 9:09 PM EDT 12/08/2024 9:12 PM EDT Narrative [facility] - 12/08/2024 10:00 PM EDT [id number], Clean [employer]atch us Generic External Data Provider LAB URINE ORDERAB LES Final Result Performing Organization Address [facility]/ZIP Co de Phone Number [facility] [address] [place] [address] [phone] * HCG, Qualitative, Urine (12/08/2024 9:09 PM EDT) Pathologist [facility] Urine NEGATIVE NEGATIVE [facility] Comment:This test was develo ped to detect early . Falsenegative results may occur after the 5th - 7th week ofpregnancy when using this test method. If clinicallyindicated, consider a serum hCG. 12/08/2024 9:09 PM EDT 12/08/2024 9:12 PM EDT Generic External Data Provider LAB URINE ORDERAB LES Final Result Performing Organization Address [facility] Co de Phone Number [facility] [address] [place] [phone] * Iron And Total Iron Binding Capacity (12/08/2024 8:51 PM EDT) Only the most recent of2 resultswithin the time period is included. [facility] Iron 42 30 - 160 mcg/dL [facility] Total Iron Binding Capacity 285 228 - 428 mcg/dL [facility] Percent Iron Saturation 15 15 - 50 % [facility] Unsaturated Iron Binding 243 ug/dL [facility] 12/08/2024 8:51 PM EDT 12/08/2024 8:54 PM EDT Generic External Data Provider LAB BLOOD ORDERAB LES Final Result Performing Organization Address [facility] Co de Phone Number [facility] [address] [place] [phone] * (ABNORMAL) Comprehensive Metabolic Panel (12/08/2024 8:51 PM EDT) Only the most recent of2 resultswithin the time period is included. [facility] Sodium 140 135 - 145 mmol/L [facility] Potassium 3.6 3.3 - 5.1 mmol/L [facility] Chloride 110(H) 96 - 108 mmol/L [facility] Carbon Dioxide 21(L) 22 - 29 mmol/L [facility] Anion Gap 13 12 - 20 [facility] Urea Nitrogen (BUN) 13 9 - 16 mg/dL [facility] Creatinine, Serum 0.85 0.5 - 1.4 mg/dL [facility] Creatinine Clr Calc Pharmacy 115.6 [facility] Comment:Provided height and weight: 170.18 cm,84.005 kg.eGFR (calculated from the MDRD study equation) and eCrCl(calculated from the Cockcroft-Gault equation) are based ondifferent parameters and may not yield comparable results.If eCrCl result is absurd, please check patient'sheight/weight. Estimated Glomerular Filt Rate >60 [facility] Comment:Chronic Kidney Disea se: Estimated GFR < 60 mL/min/1.84y9Ltgpil Kidney Disease: Estimated GFR < 15 mL/min/1.73m2 Glucose 137(H) 60 - 115 mg/dL [facility] Calcium 9.0 8.4 - 10.2 mg/dL [facility] Bilirubin, Total 0.2 0.0 - 1.0 mg/dL [facility] Aspartate Amino Transferase 16 5 - 31 U/L [facility] Alanine Aminotransferase 9 0 - 31 U/L [facility] Total Protein 7.3 6.5 - 8.0 g/dL [facility] Albumin Level 4.1 3.5 - 5.0 g/dL [facility] Alkaline Phosphatase 65 39 - 117 U/L [facility] 12/08/2024 8:51 PM EDT 12/08/2024 8:54 PM EDT us Generic External Data Provider LAB BLOOD ORDERAB LES Final Result [facility] [address] [place], [place] [phone] * HIV-1/2 Antigen and Antibodies, Fourth Generation, with Reflexes (11/30/2024 3:07 PM EDT) HIV AB/AG Nonreactive Nonreactive [facility] Comment:HIV-1 p24 Ag and/or HIV-1/HIV-2 Ab not detected.A test result that is nonreactive does not exclude thepossibility of exposure to or infection with HIV-1 and/orHIV-2. Nonreactive results in this assay for individualswith prior exposure to HIV-1 and/or HIV-2 may be due toantigen and antibody levels that are below the limit ofdetection of this assay.The [employer] HIV Ag/Ab Combo assay result andsupplemental assay results should be interpreted inconjunction with the patient's clinical presentation,history and other laboratory results. If the results areinconsistent with clinical evidence, additional testing issuggested to confirm the result. Blood Venous blood specimen / Unknown 11/30/2024 3:07 PM EDT 11/30/2024 5:03 PM EDT us Faviola Roy HOTEL SERVICES SALES REPRESENTATIVE LAB BLOOD ORDERABLES Final Res ult [facility] [address] [place] [phone] * Lipid Panel, Standard (11/30/2024 3:07 PM EDT) Triglycerides 73 <150 mg/dL [facility] Comment:Desirable Triglyceri de: less than 150 mg/dLBorderline High Triglyceride 150-199 mg/dLHigh Triglyceride: 200-499 mg/dLVery High Triglyceride: greater than or equal to 5OO mg/dL Cholesterol 147 <200 mg/dL [facility] Comment:Desirable Cholestero l: less than 200 mg/dLBorderline High Cholesterol: 200-239 mg/dLHigh Cholesterol: greater than 239 mg/dL LDL Cholesterol Calculated 74 <100 mg/dL [facility] Comment:Desirable LDL: less than 100 mg/dLNear Optimal/Above Optimal LDL: 110- 129 mg/dLBorderline High LDL: 130-159 mg/dLHigh LDL: 160-189 mg/dLVery High LDL: greater than or equal to 190 mg/dL HDL Cholesterol 59 >40 mg/dL [facility] Comment:Desirable HDL: great er than 40 mg/dL Note: This HDL assay may give artificially low results in patients with liver disease. Blood Venous blood specimen / Unknown 11/30/2024 3:07 PM EDT 11/30/2024 5:[address] [facility] LAB BLOOD ORDERABLES Final Res ult Performing Organization Address [facility] Co de Phone Number [facility] [address] [place] [phone] * Hepatitis C Viral RNA, Quantitative, Real-Time PCR (11/15/2024 3:35 PM EDT) Hepatitis C Viral Load <15 NOT DETECTED NOT DETECTED IU/mL [facility] HCV Log PCR <1.18 NOT DETECTED NOT DETECTED Log IU/mL [facility] Comment:For additional infor momo, please refer tohttp://education.[employer]/faq/MDY86m6(This link is being provided for informational/educational purposes only.)THIS TEST WAS PERFORMED AT:[facility] [place] [id number] SIM MD Blood 11/15/2024 3:35 PM EDT 11/15/2024 3:[address] [facility] LAB BLOOD ORDERABLES Final Res ult Performing Organization Address [facility] Phone Number [facility] [address] [place] [phone] * Vitamin D 1,25 dihydroxy (11/15/2024 3:35 PM EDT) Vit D (1,25-Dihydroxy) Total 65 18 - 72 pg/mL [facility] VITAMIN D (1,25 OH) D3 65 pg/mL [facility] Vitamin D (1,25 OH) D2 <8 pg/mL [facility] Comment:Vitamin D3, 1,25(OH) 2 indicates both endogenousproduction and supplementation. Vitamin D2, 1,25(OH)2is an indicator of exogenous sources, such as diet orsupplementation. Interpretation and therapy are basedon measurement of Vitamin D,1,25(OH)2, Total.This test was developed and its analyticalperformance characteristics have been determinedby [facility] [place], [place].It has not been cleared or approved by the FDA. Thisassay has been validated pursuant to the CLIAregulations and is used for clinical purposes.THIS TEST WAS PERFORMED AT:[facility] [facility]/[id number] [place] [address]UWEOENE W. MASON,MD,PHD 11/15/2024 3:35 PM EDT 11/15/2024 3:[address] [facility] LAB BLOOD ORDERABLES Final Res ult Performing Organization Address [facility]/ZIP Co de Phone Number [facility] [address] [place] [phone] * RPR (Monitor) with Reflex to??Titer (11/15/2024 3:35 PM EDT) RPR (Monitor) w/Refl Titer NON-REACTI VE NON-REACT HILARIA [facility] Comment:THIS TEST WAS PERFOR MED AT:[facility] [facility] [address] [id number] SIM MD Rapid Plasma Reagin Ab Titer TNP [facility] Blood Venous blood specimen / Unknown 11/15/2024 3:35 PM EDT 11/15/2024 3:35 [address] [facility] LAB BLOOD ORDERABLES Final Res ult Performing Organization Address [facility]/ZIP Co de Phone Number [facility] [address] [place] [phone] * TSH (11/15/2024 3:35 PM EDT) Thyroid Stimulating Hormone 1.12 0.32 - 4.0 uIU/mL [facility] Comment:TSH 3rd Generation ( [facility]) 11/15/2024 3:35 PM EDT 11/15/2024 3:35 PM EDT Faviola Roy HOTEL SERVICES SALES REPRESENTATIVE LAB BLOOD ORDERABLES Final Res ult Performing Organization Address [facility]/ZIP Co de Phone Number [facility] [address] [place] [phone] * Hemoglobin A1c (11/15/2024 3:35 PM EDT) Hemoglobin A1c 5.2 <6.0 % [facility] Comment:Hemoglobin A1C Refer ence Range Adults: 4.8 - 6.0 % Non diabetic: < 6.0 % Goal: < 7.0 %Additional Action Suggested: > 8.0 %Note: Hemoglobin A1c results are invalid for patients with abnormal amounts of HbF. Blood transfusions may impact the HbA1c concentration in the patient sample. Estimated Average Glucose 103 mg/dL [facility] Comment:eAG = Estimated ave rage glucose which is %A1C expressed asaverage glucose, using the formula of the U8F-HazfvsxBvdrnjn Glucose study (ADAG), Diabetes Care, Vol.31,#8,Sep. 2007 Blood Venous blood specimen / Unknown 11/15/2024 3:35 PM EDT 11/15/2024 3:35 PM EDT Faviola Roy HOTEL SERVICES SALES REPRESENTATIVE LAB BLOOD ORDERABLES Final Res ult Performing Organization Address City/[facility]/ZIP Co de Phone Number [facility] [address] [place] [address] [phone] * Ferritin (11/15/2024 3:35 PM EDT) Ferritin 29 10 - 122 ng/mL [facility] Blood Venous blood specimen / Unknown 11/15/2024 3:35 PM EDT 11/15/2024 3:35 PM EDT Faviola Roy [facility] LAB BLOOD ORDERABLES Final Res ult Performing Organization Address City/[facility]/ZIP Co de Phone Number [facility] [address] [place] [phone] * Chlamydia/Trichomonas/Neisseria gonorrhoeae, PCR, Urine (11/15/2024 3:17 PM EDT) CT PCR, Urine NOT DETECTED Not Detect. [facility] Comment:A not detected test result [...] NG PCR, Urine NOT DETECTED Not Detect. [facility] Comment:A not detected test result [...] EDT 11/15/2024 3:56 PM EDT Faviola Roy [facility] LAB URINE ORDERABLES Final Res ult Performing Organization Address City/[facility]/ZIP Co de Phone Number [facility] [address] [place] [phone] * Pap Smear (09/29/2023 11:47 AM EDT) SOURCE: SEE NOTE [facility] Comment:None given Report Status: [facility] Clinical Information: SEE NOTE [facility] Comment:None given LMP: SEE NOTE [facility] Comment:NONE GIVEN Prev. PAP: SEE NOTE [facility] Comment:NONE GIVEN Prev. BX: SEE NOTE [facility] Comment:NONE GIVEN Statement Of Adequacy: SEE NOTE [facility] Comment:Satisfactory for jseus luation.Endocervical/transformation zone componentpresent. General Categorization: [facility] Interpretation/Result: SEE NOTE [facility] Comment:Cytology Results: Ne gative for intraepitheliallesion or malignancy. Cytology Comment SEE NOTE [facility] Comment:This Pap test has be en evaluated with computerassisted technology. Waste Water Operator: SEE NOTE [facility] Comment:CMB, CT(ASCP) CT Scr eening Location: [facility] [address] preparation performed at: [facility] [address] CLIA No. [id number] Review Waste Water Operator: [facility] Pathologist [facility] PAP Infection [facility] See Note SEE NOTE [facility] Comment:EXPLANATORY NOTE:The Pap is a screening test for cervical cancer. It isnot a diagnostic test and is subject to false negativeand false positive results. It is most reliable when asatisfactory sample, regularly obtained, is submittedwith relevant clinical findings and history, and whenthe Pap result is evaluated along with historic andcurrent clinical information.THIS TEST WAS PERFORMED AT:[facility] [address] [id number] MERATI,MD Pap Vial Vaginal structure / Unknown 09/29/2023 11:47 AM EDT 09/29/2023 7:13 PM EDT Narrative [facility] - 10/03/2023 2:51 PM EDT SEE SCANNED RESULTS IN EMR [facility] PATHOLOGY ORDERABLES Final Result [facility] [address] [place] [phone] from Last 3 Months or Most Recently Relevant to Health Maintenance Insurance [facility] C3 Care Teams Textile Coating Machine Operator Relationship Specialty Start Date End Date Faviola Roy FNP [address] [place] [phone] PCP - General Family Medicine 10/05/21
--- NOTE | 2025-01-12 04:23 | PC.NURSE ---
pt requested IV to be taken out and for her to be discharged. okay with this. also aware of HR. pt stated feeling better after receiving iv benadryl. awaiting ride from boyfriend, god daughter is with her, states they have a flight to [place] at 0600, gave written prescription for benadryl. pt verbalizes understanding d.c education, nad.
[2025-01-12 04:26] VITALS: BP 120/53; PULSE 122; RESP 16; TEMP 36.7; O2SAT 99
== END 2025-01-12 04:32 | disposition home or self-care (01) ==
PROVIDERS: Student in an Organized Health Care Education/Training Program; Emergency Provider Emergency Medicine; PCP Registered Nurse
DX: O21.9 Vomiting of pregnancy, unspecified (principal)
CPT/HCPCS: 36415; 80048; 81003; 85025; 96361; 96374; 96375; 99284; J1200; J2765

== ENCOUNTER 2025-02-05 16:29 | Emergency (ER) | payer MEDICAID, SELFPAY ==
[2025-02-05 16:48] VITALS: BP 138/60; PULSE 108; RESP 18; TEMP 36.8; O2SAT 97; BMI 37.2
--- NOTE | 2025-02-05 16:50 | ED_ITS ---
HPI - General Adult General Chief complaint: Nausea/Vomiting/Diarrhea Stated complaint: 9wks preg nothing stays down when she eats Time Seen by Provider: 02/05/25 21:01 Source: patient and family Mode of arrival: ambulatory Limitations: no limitations History of Present Illness ED Provider: Dr. Cyndie Baker HPI narrative: 24 year old female,newly who presents to the Emergency Department complaining of vomiting and a ?bit of a headache.? She reports an episode of vomiting today and another yesterday after breakfast. She feels ?similar to home? but worries about continued vomiting. She endorses intermittent upper abdominal discomfort but denies shortness of breath. She notes occasional pain that ?hurt a lot,? though location not clearly specified. She denies bowel problems. Headache described as mild, present at time of visit, no further characteristics provided. The patient recalls a prior IV anti-nausea medication that caused an uncomfortable reaction described as feeling like she was ?crawling out of her skin? and being unable to stay still; provider identified this as a likely dystonic reaction to metoclopramide/Reglan. She tolerates vitamins and takes prescribed medications for nausea and sleep/motion sickness at home. Last menstrual period recalled as November (exact date uncertain). She has not yet had any formal appointment or prior ultrasound. Related Data Previous Rx's ?Medication ?Instructions ?Recorded ibuprofen 400 mg tablet 400 mg PO TID #10 tabs 05/02 meclizine 25 mg tablet (Dramamine 25 mg PO TID PRN diz ziness #20 tabs 12/08/24 Less Drowsy) diphenhydramine HCl 25 mg capsule 25 mg PO TID PRN michael sea and 01/12/25 vomiting #14 caps ondansetron 4 mg disintegrating 4 mg PO Q8H PRN nausea and 02/06/25 tablet vomiting #10 tabs Allergies Allergy/AdvReac Type Severity Reaction Status Date / Time apple Allergy Itching Verified 02/05/25 16:51 isaacs Allergy Itching Verified 02/05/25 16:51 SEASONAL ALLERGIES Allergy Unknown ITCHY EYES Uncoded 12/08/24 20:37 Review of Systems 2 Review of Systems: as per HPI, full review of systems performed and negative but for the above mentioned pertinent positives and negatives. PMFSH Past Medical History Surgical History No pertinent past surgical history Social History Social History Alcohol intake: never Advance Directives: No Advance Directives Information Provided: No Do you have a plan to hurt others: No Plan Patient : Yes Physical Exam ED Exam Exam: GENERAL: Ill-Appearing, appears uncomfortable. SKIN: Normal skin color for ethnicity, warm, dry, no rashes noted. HEENT:? Normocephalic, atraumatic, no stridor, dry mucous membranes, dentition intact, EOMI. NECK: Soft, supple, full ROM, midline structures nontender, no step-offs, no deformities, no lymphadenopathy. CHEST: Heart regular tachycardia, no murmurs, symmetric chest rise and fall. PULMONARY: Clear to auscultation bilaterally, diminished at the bases, no labored breathing, no wheezes/rhales/rhonchi. ABDOMINAL: Soft, nondistended, nontender, positive bowel sounds in all quadrants. : Deferred. MUSCULOSKELETAL: Normal tone, full range of motion, no deformities, no peripheral edema. NEURO: Alert and oriented x3, CN II through XII intact, equal strength and sensation bilateral upper and lower extremities, no focal neurologic deficits.? PSYCHIATRIC: Flat affect, fluid speech, good eye contact and appropriate demeanor. Vital Signs: Vital Signs - 24 hr 02/05/25 16:48 02/05/25 21:22 02/05/25 23:38 Temperature 98.2 F 97.4 F Pulse Rate 108 H 95 65 Respiratory Rate 18 16 16 Blood Pressure 138/60 161/68 H 117/47 L Pulse Oximetry 97 99 100 Oxygen Delivery Method Room Air Room Air Room Air BMI result Body Mass Index 37.2 Course Course Course Narrative: RME, this is a rapid medical exam performed by Ricardo Linton please refer to primary provider for complete H&P- 24-year-old female presents for evaluation of nausea and vomiting. She reports that she is 9 weeks . Plan for labs, urinalysis Medications Administered Discontinued Medications Generic Name Dose Route Start Last Admin Trade Name Freq PRN Reason Stop Dose Admin Lactated Ringer's 1,000 mls @ 999 mls/hr 02/05/25 21:33 02/05/25 23:35 Lr IV 02/05/25 22:33 Infused .Q1H1M ONE Infusion Ondansetron HCl 4 mg 02/05/25 21:33 02/05/25 22:22 Ondansetron Hcl 4 Mg/2 Ml Vial IVPUSH 02/05/25 21:34 4 mg ONCE ONE Administration Procedures Ultrasound ED POC Ultrasound: EMERGENCY ULTRASOUND INTERPRETATION-Limited Uterus US The study reveals:? Impression: single IUP FHT 178 Indication: Uterus:?wnl? Free Fluid:?none Adnexa:??wnl Quant HCG:?>225,000 Performed by: Dr. Cyndie Baker Date:Time: 02/05/25 21:35 ? CPT: 03649 ; Reference Codes? [email or web address]://bit.[email or web address] Medical Decision Making Medical Decision Making MDM Narrative: Patient presents today with a chief complaint of vomiting. Differential diagnosis includes surgical emergency such as hyperemesis gravidarum, obstruction, enteritis, hyperglycemia, acidosis, food or drug ingestion, pancreatitis, CVA, allergic reaction such as anaphylaxis, cannabis hyperemesis syndrome or cyclic vomiting syndrome, among many others.? Patient is not showing signs of acute dehydration or hemodynamic instability.? They are not having associated abdominal pain. ? Broad-based work-up was initiated based on above history and physical exam. Emergency Department Course [id number] transabdominal ultrasound performed, demonstrating very early intrauterine with cardiac activity (FHR 178 bpm). Patient counseled on findings. Provider suspects mild dehydration and possible viral gastroenteritis versus -related nausea/vomiting. Plan discussed for IV fluid resuscitation and antiemetic therapy (ondansetron). Provider reviewed prior dystonic reaction to metoclopramide; will monitor for similar reaction. Benadryl to be available if adverse reaction occurs. Diagnosis: 1. Early intrauterine (ultrasound confirmed cardiac activity, FHR 178 bpm). 2. Nausea and vomiting in versus viral gastroenteritis with mild dehydration. 3. History of dystonic reaction to metoclopramide. Plan: * Administer IV fluids to address dehydration. * Administer ondansetron in ED; observe for efficacy and any adverse reaction. * If dystonic reaction occurs, treat with diphenhydramine per provider statement. * Continue vitamins and home anti-nausea regimen as tolerated. * Education provided regarding warning signs: pelvic pain?return to ED if this occurs. Differential Diagnosis Differential Diagnoses: The differential diagnosis associated with the presentation includes (as above) Admission/Observation Consideration of admission/observation: Escalation of care including admission/observation considered Lab Data MDM Lab Attestation statement: I reviewed the patient's lab results. 02/05/25 17:35 02/05/25 17:35 Labs: Lab Results 02/05/25 02/05/25 Range/Units 17:35 21:22 WBC 9.8 (4.8-10.8) X10*3/uL RBC 4.67 (4.20-5.50) X10*6/uL Hgb 12.4 (12.0-16.0) g/dl Hct 38.1 (37.0-47.0) % MCV 81.6 (80.0-98.0) fL MCH 26.6 L (27.0-33.0) pg MCHC 32.5 (31.0-35.0) g/dl RDW 13.1 (11.0-16.0) % Plt Count 324 (160-400) X10*3/uL MPV 8.7 L (9.4-12.3) fL Immature Gran % (Auto) 0.3 (0.0-0.4) % Neut % (Auto) 72.7 (45-73) % Lymph % (Auto) 17.7 L (20-40) % [place] % (Auto) 8.4 (2-11) % Eos % (Auto) 0.7 (0-4) % Baso % (Auto) 0.2 (0-2) % Lymph # (Auto) 1.7 (1.2-4.9) X10*3/uL [place] # (Auto) 0.8 (0.1-1.2) X10*3/uL Eos # (Auto) 0.1 (0.0-0.4) X10*3/uL Baso # (Auto) 0.0 (0.0-0.2) X10*3/uL Abs Immat Gran (auto) 0.03 (0.00-0.03) X10*3/uL Absolute Neuts (auto) 7.1 (2.0-8.3) x10*3/uL Absolute Nucleated RBC 0.000 (0.0-0.012) X10*3/uL Nucleated RBC % (auto) 0.0 (0.0-0.2) /100WBC Sodium 137 (135-145) mmol/L Potassium 3.8 (3.3-5.1) mmol/L Chloride 106 (96-108) mmol/L Carbon Dioxide 23 (22-29) mmol/L Anion Gap 12 (12-20) BUN 10 (9-16) mg/dL Creatinine 0.69 (0.5-1.4) mg/dL Estim Creat Clear Calc 119.8 Estimated GFR > 60 Random Glucose 94 (60-115) mg/dL Calcium 9.4 (8.4-10.2) mg/dL Total Bilirubin 0.4 (0.0-1.0) mg/dL AST 18 (5-31) U/L ALT 16 (0-31) U/L Alkaline Phosphatase 50 (39-117) U/L Total Protein 7.3 (6.5-8.0) g/dL Albumin 4.0 (3.5-5.0) g/dL Lipase 23 (8-78) U/L Beta HCG, Quant > 864353 mIU/mL Urine Color Dark Yellow Urine Appearance Clear Urine pH 5.5 (5.0-9.0) Ur Specific [place] >= 1.030 H (1.005-1.025) Urine Protein Trace (Neg-Trace) mg/dL Urine Glucose (UA) Negative (Negative) mg/dL Urine Ketones 15 (Negative) mg/dL Urine Blood Negative (Negative) Urine Nitrite Negative (Negative) Ur Leukocyte Esterase Negative (Negative) Urine RBC 0-2 (0-2) /HPF Urine WBC 0-5 (0-5) /HPF Ur Squamous Epith Cells 6-10 (0-2) /HPF Urine Bacteria 1+ (None Seen) Hyaline Casts 0-2 (0-2) /LPF Influenza Type A (PCR) NEGATIVE (Negative) Influenza Type B (PCR) NEGATIVE (Negative) RSV RNA Qual (PCR) NEGATIVE (Negative) SARS-CoV-2 RNA (RT-PCR) NEGATIVE (Negative) External Record Review External record reviewed: Inpatient record Prescription Management I considered prescription management with: Other (antiemetic) Social Determinants Patient?s care significantly limited by Social Determinants of Health including: Other Social Determinant of Health Discharge Plan Discharge Clinical Impression: Hyperemesis gravidarum Patient Disposition: Home, Self-Care Instructions: Hyperemesis Gravidarum (ED) Additional Instructions: Your vomiting is most likely releated to your , but could be the start of the stomach flu. Your lab work is reassuring. The treatment for this is supportive care. Use the medication provided to you by your other doctor for nausea and use Zofran if that medication does not work. Try to drink as much fluid as possible over the next several days to stay well hydrated. Follow up with your [facility] as scheduled. Return to the emergency department sooner if you develop any new or worsening symptoms including: Worsening abdominal pain or vomiting despite medication, fevers greater than 100?, bloody stool or vomit, vaginal bleeding or pelvic pain, any new symptom that concerns you. Call 911 with any medical emergency. Prescriptions: New ondansetron 4 mg tablet,disintegrating 4 mg PO Q8H PRN (Reason: nausea and vomiting) Qty: 10 0RF No Action ibuprofen 400 mg tablet 400 mg PO TID Qty: 10 0RF meclizine [Dramamine Less Drowsy] 25 mg tablet 25 mg PO TID PRN (Reason: dizziness) Qty: 20 0RF diphenhydramine HCl 25 mg capsule 25 mg PO TID PRN (Reason: nausea and vomiting) Qty: 14 0RF Interventions: ED Discharge Assessment Last Done: 02/06/25 00:37 Discharge Date/Time: 02/06/25 00:37 Print Language: Tamazight
[2025-02-05 17:41] LABS: MANUAL DIFF FLAG NO
[2025-02-05 17:45] LABS: Hematocrit 38.1 % (37.0-47.0); Hemoglobin 12.4 g/dl (12.0-16.0); Imm Gran Abs Auto 0.03 X10*3/uL (0.00-0.03); Imm Gran Pct Auto 0.3 % (0.0-0.4); Lymphocytes Absolute Auto 1.7 X10*3/uL (1.2-4.9); Mean Corpuscular HGB Conc 32.5 g/dl (31.0-35.0); Mean Corpuscular Hemoglobin 26.6 pg (27.0-33.0); Mean Corpuscular Volume 81.6 fL (80.0-98.0); NRBC Abs Auto 0.000 X10*3/uL (0.0-0.012); NRBC Pct Auto 0.0 /100WBC (0.0-0.2); Platelet Count 324 X10*3/uL (160-400); Red Blood Count 4.67 X10*6/uL (4.20-5.50); White Blood Count 9.8 X10*3/uL (4.8-10.8)
[2025-02-05 18:03] LABS: Alanine Aminotransferase 16 U/L (0-31); Albumin Level 4.0 g/dL (3.5-5.0); Alkaline Phosphatase 50 U/L (39-117); Anion Gap 12 (12-20); Aspartate Amino Transferase 18 U/L (5-31); Blood Urea Nitrogen 10 mg/dL (9-16); Calcium 9.4 mg/dL (8.4-10.2); Carbon Dioxide 23 mmol/L (22-29); Chloride 106 mmol/L (96-108); Creatinine Clr Calc Pharmacy 119.8; Estimated Glomerular Filt Rate > 60; Lipase 23 U/L (8-78); Potassium 3.8 mmol/L (3.3-5.1); Sodium 137 mmol/L (135-145); Total Protein 7.3 g/dL (6.5-8.0)
[2025-02-05 18:21] LABS: Resp Syncy Virus RNA Qual PCR NEGATIVE (Negative); SARS COV2 PCR INHOUSE NEGATIVE (Negative)
--- OUTSIDE RECORDS SUMMARY | 2025-02-05 20:50 | XMS_ITS | Clinical Summary ---
Author Organization [address] Address [address] [place] [phone] Phone Care Team Providers Care [employer] Name Role Phone Physician, No Pcp Primary [...] 10/05/2024 2:22 PM EDT Plan of Treatment Upcoming Encounters Date Type Department Care Team (Late st Contact Info) Description 02/21/2025 1:00 PM EST Clinical Support Obstetrics and Gynecology [address] [phone] 02/28/2025 1:30 PM EST Initial Obstetrics and Gynecology - [address] [phone] Faviola Bridges, CNM [address] [place] [address] Health Maintenance Due Date Last Done Comments [...] Name Priority Date/Time Associated Diagnosis Comments HCG, QUANTITATIVE Routine 01/05/2025 3:23 PM EST from Last 3 Months Results * HCG, quantitative (01/05/2025 3:23 PM EST) Blood Venous blood specimen / Unknown [facility] Provider LAB BLOOD ORDERABLES Deya horvath Result from Last 3 Months Insurance MEDICAID - [place] Care Teams [employer] Relationship Specialty Start Date End Date Physician, No Pcp PCP - General 10/01/24
--- OUTSIDE RECORDS SUMMARY | 2025-02-05 20:50 | XMS_ITS | Encounter Summary ---
Author Organization [employer] Address [address] [place] [address] [address] [place] [address] Care Team Providers Care Victims Advocate Clerk/Specialist Name Role Phone Faviola Roy RENU Primary Care Provider [phone] Reason for Visit * Reason Onset Date Comments ER Follow-up 01/11/2025 Encounter Details Date Type Department Care Team (Latest Contact Info) Description 01/11/2025 Results Follow-Up [facility] [address] [place] [address] Nadya Pollock RN hCG, Total, Quantitative Social [...] pt. Pt states is going to call [facility] today for follow up. Pt states is not currently taking other medications other than prenatals for intention to continue . Pt states is experiencing nausea intermittently and wanting to know if medication she can take. Advised will review with PCP for antinausea medication recommendation for . Pt verbalized understanding and agreement with plan. * Telephone Encounter - Nadya Pollock RN - 01/11/2025 12:32 PM EST ----- Message from Faviola Roy sent at 01/11/2025 11:56 AM EST ----- HCG test suggestive of . She was recently seen at [facility] and referred to [facility] for care. Please see if she is taking any meds besides the . Please also review options if this was not intended . Please let me know if anything further needed on our end. Thank you! ----- Message ----- From: Interface, Lab Results In Sent: 01/05/2025 11:08 PM EST To: Faviola Phalen, BOILER OR ENGINE OPERATOR documented in this encounter Plan of Treatment Not on file documented as of this encounter Visit Diagnoses Not on filedocumented in this encounter Additional Health Concerns Assessment Noted Time PHQ-9 Depression Total Score: 0 11/17/19 25 6:08 PM EDT documented as of this encounter Care Teams Victims Advocate Clerk/Specialist Relationship Specialty Start Date End Date Faviola Roy FNP [address] [place] [phone] PCP - General Family Medicine 10/05/21 documented as of this encounter
--- OUTSIDE RECORDS SUMMARY | 2025-02-05 20:50 | XMS_ITS | Clinical Summary ---
Author Organization [employer] Address [address] [place] [address] 7 [place] [address] Care Team Providers Care Wellness Director Name Role Phone LucianoFaviola peres RENU Primary Care Provider [phone] Allergies Active Allergy Reactions Criticality Noted Date [...] hours if needed (nausea). 60 tablet 2 01/18/2025 3:19 PM EST 5 01/12/20 26 Active doxylamine (Unisom) 25 MG tablet Take 1 tablet (25 mg) by mouth if needed at bedtime for sleep or nausea. 30 tablet 1 01/18/2025 3:19 PM EST 5 02/17/19 26 Active Active Problems Problem Noted Date Diagnosed Date Multiple food allergies 08/10/2024 Overview (08/10/2024): 03/11/24: [facility] All[facility] - Dr. Sanchez. Eval for possible food allergies and seasonal rhinitis. [...] Department Care Team Description 01/11/2025 Results Follow-Up [facility] [address] [place] [address] Nadya Pollock RN hCG, Total, Quantitative 01/05/2025 Telephone [facility] [address], [place] [phone] Faviola Roy FNP 12/09/2024 Telephone [facility] [address] [place] [address] Faviola Roy FNP ER Follow-up 11/24/2024 Results Follow-Up [facility] [address] [place] [address] Faviola Roy FNP Hemoglobin A1c, Comprehensive Metabolic Panel, CBC auto differential, Additional followed-up results: 5 11/23/2024 Telephone [facility] [address] [place] [address] Faviola Roy FNP Results 11/15/2024 Orders Only [facility] [address] [place] [address] Faviola Roy FNP 11/12/2024 2:45 PM EDT Office Visit [facility] [address] [place] [address] Faviola Roy FNP Encounter for routine history and physical examination of adult (Primary Dx); Encounter for immunization; Healthcare maintenance; Dietary counseling; Exercise counseling; Multiple food allergies; Iron deficiency 11/12/2024 Travel from Last 3 Months Immunizations Immunization Administration [...] Associated Diagnosis Comments HCG, TOTAL, QN Routine 02/05/2025 5:35 PM EST LIPASE Routine 02/05/2025 5:35 PM EST COMPREHENSIVE METABOLIC PANEL Routine 02/05/2025 5:35 PM EST CBC WITH AUTO DIFFERENTIAL Routine 02/05/2025 5:35 PM EST SARS COV2/INFLUENZA A/B AND RSV RNA QL NAAT Routine 02/05/2025 5:35 PM EST BASIC METABOLIC PANEL Routine 01/11/2025 11:03 PM [...] Recently Relevant to Health Maintenance Results * SARS-CoV-2 RNA, Influenza A/B, and RSV RNA, Ql NAAT (02/05/2025 5:35 PM EST) Pathologist [facility] Influenza A PCR NEGATIVE Negative [facility] Influenza B PCR NEGATIVE Negative [facility] Resp Syncy Virus RNA Qual PCR NEGATIVE Negative [facility] SARS COV2 PCR NEGATIVE Negative [facility] Comment:All test results mus t be correlated with clinical findings.Negative results do not preclude SARS-CoV2, influenza Avirus, influenza B virus and/or RSV infectionand should not be used as the sole basis for treatment orother patient management decisions. Negative results must becombined with clinical observations, patient history, andepidemiological information.This test has not been evaluated for monitoring treatment ofinfection.This test has been authorized by the FDA under an EmergencyUse Authorization (EUA) for use by authorized laboratories.Testing performed on the SCM-GL GeneXpert utilizingreal-time RT-PCR.All SARS CoV2 and positive influenza A/B results arereported to [facility]. 02/05/2025 5:35 PM EST 02/05/2025 5:39 PM EST us Generic External Data Provider LAB MICROBIOLOGY - GENERAL ORDERABLES Final Result [facility] [address] [place] [phone] * (ABNORMAL) CBC auto differential (02/05/2025 5:35 PM EST) Only the most recent of4 resultswithin the time period is included. White Blood Count 9.8 4.8 - 10.8 X10*3/uL [facility] Red Blood Count 4.67 4.20 - 5.50 X10*6/uL [facility] Hemoglobin 12.4 12.0 - 16.0 g/dl [facility] Hematocrit 38.1 37.0 - 47.0 % [facility] Mean Corpuscular Volume 81.6 80.0 - 98.0 fL [facility] Mean Corpuscular Hemoglobin 26.6(L) 27.0 - 33.0 pg [facility] Mean Corpuscular HGB Conc 32.5 31.0 - 35.0 g/dl [facility] Red Cell Distribution Width 13.1 11.0 - 16.0 % [facility] Platelet Count 324 160 - 400 X10*3/uL [facility] Mean Platelet Volume 8.7(L) 9.4 - 12.3 fL [facility] Neutrophils Percent Auto 72.7 45 - 73 % [facility] Imm Gran Pct Auto 0.3 0.0 - 0.4 % [facility] Lymphocytes Percent Auto 17.7(L) 20 - 40 % [facility] Monocytes Percent Auto 8.4 2 - 11 % [facility] Eosinophils Percent Auto 0.7 0 - 4 % [facility] Basophils Percent Auto 0.2 0 - 2 % [facility] NRBC Pct Auto 0.0 0.0 - 0.2 /100WBC [facility] Neutrophils Absolute Auto 7.1 2.0 - 8.3 x10*3/uL [facility] Imm Gran Abs Auto 0.03 0.00 - 0.03 X10*3/uL [facility] Lymphocytes Absolute Auto 1.7 1.2 - 4.9 X10*3/uL [facility] Monocytes Absolute Auto 0.8 0.1 - 1.2 X10*3/uL [facility] Eosinophils Absolute Auto 0.1 0.0 - 0.4 X10*3/uL [facility] Basophils Absolute Auto 0.0 0.0 - 0.2 X10*3/uL [facility] NRBC Abs Auto 0.000 0.0 - 0.012 X10*3/uL [facility] 02/05/2025 5:35 PM EST 02/05/2025 5:39 PM EST us Generic External Data Provider LAB BLOOD ORDERAB LES Final Result Performing Organization Address City/[facility] Co de Phone Number [facility] [address] [place] [phone] * hCG, Total, Quantitative (02/05/2025 5:35 PM EST) Only the most recent of2 resultswithin the time period is included. HCG Quantitative >225,000 mIU/mL [facility] Comment:Weeks post LMP Appr oximate hCG(Last Menstrual Period) Range (mIU/ml)3 - 4 weeks 9 - 1304 - 5 weeks 75 - 2,6005 - 6 weeks 850 - 20,8006 - 7 weeks 4000 - 100,2007 - 12 weeks 11,500 - 289,31520 - 16 weeks 18,300 - 137,58866 - 29 weeks (2nd trimester) 1,400 - 53,98144 - 41 weeks (3rd trimester) 940 - 60,000The Siu B- hCG assay is used for the early detection ofpregnancy; it cannot be used to diagnose any conditionunrelated to . If a B-hCG level is not supportedby the clinical evidence, results should be confirmed by analternative method (qualitative urine hCG, for example). 02/05/2025 5:35 PM EST 02/05/2025 5:39 PM EST us Generic External Data Provider LAB BLOOD ORDERAB LES Final Result Performing Organization Address [facility] Co de Phone Number [facility] [address] [place] [phone] * Lipase (02/05/2025 5:35 PM EST) Lipase 23 8 - 78 U/L [facility] 02/05/2025 5:35 PM EST 02/05/2025 5:39 PM EST us Generic External Data Provider LAB BLOOD ORDERAB LES Final Result Performing Organization Address City/[facility] Co de Phone Number [facility] [address] [place] [phone] * Comprehensive Metabolic Panel (02/05/2025 5:35 PM EST) Only the most recent of3 resultswithin the time period is included. Sodium 137 135 - 145 mmol/L [facility] Potassium 3.8 3.3 - 5.1 mmol/L [facility] Chloride 106 96 - 108 mmol/L [facility] Carbon Dioxide 23 22 - 29 mmol/L [facility] Anion Gap 12 12 - 20 [facility] Urea Nitrogen (BUN) 10 9 - 16 mg/dL [facility] Creatinine, Serum 0.69 0.5 - 1.4 mg/dL [facility] Creatinine Clr Calc Pharmacy 119.8 [facility] Comment:Provided height and weight: 149.86 cm,83.6 kg.eGFR (calculated from the MDRD study equation) and eCrCl(calculated from the Cockcroft-Gault equation) are based ondifferent parameters and may not yield comparable results.If eCrCl result is absurd, please check patient'sheight/weight. Estimated Glomerular Filt Rate >60 [facility] Comment:Chronic Kidney Disea se: Estimated GFR < 60 mL/min/[id number] Kidney Disease: Estimated GFR < 15 mL/min/1.73m2 Glucose 94 60 - 115 mg/dL [facility] Calcium 9.4 8.4 - 10.2 mg/dL [facility] Bilirubin, Total 0.4 0.0 - 1.0 mg/dL [facility] Aspartate Amino Transferase 18 5 - 31 U/L [facility] Alanine Aminotransferase 16 0 - 31 U/L [facility] Total Protein 7.3 6.5 - 8.0 g/dL [facility] Albumin Level 4.0 3.5 - 5.0 g/dL [facility] Alkaline Phosphatase 50 39 - 117 U/L [facility] 02/05/2025 5:35 PM EST 02/05/2025 5:39 PM EST us Generic External Data Provider LAB BLOOD ORDERAB LES Final Result Performing Organization Address [facility]/ZIP Co de Phone Number [facility] [address] [place] [phone] * Urinalysis with Reflex to Microscopic (01/11/2025 11:03 PM EST) Color Urine Yellow [facility] Appearance Urine Clear [facility] PH 7.0 5.0 - 9.0 [facility] Glucose Urine UA Negative Negative mg/dL [facility] Urine Blood Negative Negative [facility] Specific [place] - Urine 1.015 1.005 - 1.025 [facility] Urine Protein Negative Neg-Trace mg/dL [facility] Urine Ketones 15 Negative mg/dL [facility] Nitrite Urine Negative Negative [facility] Leukocyte Esterase Urine Negative Negative [facility] 01/11/2025 11:0 3 PM EST 01/11/2025 11:09 PM EST Generic External Data Provider LAB URINE ORDERAB LES Final Result Performing Organization Address [facility] Co de Phone Number [facility] [address] [place] [address] [phone] * Basic Metabolic Panel (01/11/2025 11:03 PM EST) Sodium 140 135 - 145 mmol/L [facility] Potassium 3.9 3.3 - 5.1 mmol/L [facility] Chloride 107 96 - 108 mmol/L [facility] Carbon Dioxide 22 22 - 29 mmol/L [facility] Anion Gap 15 12 - 20 [facility] Urea Nitrogen (BUN) 10 9 - 16 mg/dL [facility] Creatinine, Serum 0.70 0.5 - 1.4 mg/dL [facility] Creatinine Clr Calc Pharmacy 118.7 [facility] Comment:Provided height and weight: 149.86 cm,84.4 kg.eGFR (calculated from the MDRD study equation) and eCrCl(calculated from the Cockcroft-Gault equation) are based ondifferent parameters and may not yield comparable results.If eCrCl result is absurd, please check patient'sheight/weight. Estimated Glomerular Filt Rate >60 [facility] Comment:Chronic Kidney Disea se: Estimated GFR < 60 mL/min/[id number] Kidney Disease: Estimated GFR < 15 mL/min/1.73m2 Glucose 95 60 - 115 mg/dL [facility] Calcium 9.1 8.4 - 10.2 mg/dL [facility] 01/11/2025 11:0 3 PM EST 01/11/2025 11:09 PM EST us Generic External Data Provider LAB BLOOD ORDERAB LES Final Result [facility] [address] [place] [address] [phone] * (ABNORMAL) Urinalysis, Complete, with Reflex to Culture (12/08/2024 9:09 PM EDT) Color Urine Yellow [facility] Appearance Urine Clear [facility] PH 5.5 5.0 - 9.0 [facility] Glucose Urine UA Negative Negative mg/dL [facility] Urine Blood Trace(A) Negative [facility] Specific [place] - Urine 1.015 1.005 - 1.025 [facility] Urine Protein Negative Neg-Trace mg/dL [facility] Urine Ketones Negative Negative mg/dL [facility] Nitrite Urine Negative Negative [facility] Leukocyte Esterase Urine Negative Negative [facility] RBC Urine 0-2 0 - 2 /HPF [facility] Urine WBC 0-5 0 - 5 /HPF [facility] Urine Squamous Epithelial Cell 3-5 0 - 2 /HPF [facility] Urine Bacteria None Seen None Seen [facility] Hyaline Casts, Urine 0-2 0 - 2 /LPF [facility] 12/08/2024 9:09 PM EDT 12/08/2024 9:12 PM EDT Narrative [facility] - 12/08/2024 10:00 PM EDT [id number], Clean Catch us Generic External Data Provider LAB URINE ORDERAB LES Final Result Performing Organization Address [facility]/ZIP Co de Phone Number [facility] [address] [place] [address] [phone] * HCG, Qualitative, Urine (12/08/2024 9:09 PM EDT) Urine NEGATIVE NEGATIVE [facility] Comment:This test was develo ped to detect early . Falsenegative results may occur after the 5th - 7th week ofpregnancy when using this test method. If clinicallyindicated, consider a serum hCG. 12/08/2024 9:09 PM EDT 12/08/2024 9:12 PM EDT us Generic External Data Provider LAB URINE ORDERAB LES Final Result Performing Organization Address [facility] de Phone Number [facility] [address] [place] [address] [phone] * Iron And Total Iron Binding Capacity (12/08/2024 8:51 PM EDT) Only the most recent of2 resultswithin the time period is included. Iron 42 30 - 160 mcg/dL [facility] Total Iron Binding Capacity 285 228 - 428 mcg/dL [facility] Percent Iron Saturation 15 15 - 50 % [facility] Unsaturated Iron Binding 243 ug/dL [facility] 12/08/2024 8:51 PM EDT 12/08/2024 8:54 PM EDT us Generic External Data Provider LAB BLOOD ORDERAB LES Final Result Performing Organization Address [facility]/ZIP Co de Phone Number [facility] [address] [place] [address] [phone] * HIV-1/2 Antigen and Antibodies, Fourth Generation, with Reflexes (11/30/2024 3:07 PM EDT) [facility] HIV AB/AG Nonreactive Nonreactive [facility] Comment:HIV-1 p24 Ag and/or HIV-1/HIV-2 Ab not detected.A test result that is nonreactive does not exclude thepossibility of exposure to or infection with HIV-1 and/orHIV-2. Nonreactive results in this assay for individualswith prior exposure to HIV-1 and/or HIV-2 may be due toantigen and antibody levels that are below the limit ofdetection of this assay.The [employer] HIV Ag/Ab Combo assay result andsupplemental assay results should be interpreted inconjunction with the patient's clinical presentation,history and other laboratory results. If the results areinconsistent with clinical evidence, additional testing issuggested to confirm the result. Blood Venous blood specimen / Unknown 11/30/2024 3:07 PM EDT 11/30/2024 5:03 PM EDT us Faviola Roy [facility] BLOOD ORDERABLES Final Res ult [facility] [address] [place] [phone] * Lipid Panel, Standard (11/30/2024 3:07 PM EDT) [facility] Triglycerides 73 <150 mg/dL [facility] Comment:Desirable Triglyceri de: less than 150 mg/dLBorderline High Triglyceride 150-199 mg/dLHigh Triglyceride: 200-499 mg/dLVery High Triglyceride: greater than or equal to 5OO mg/dL Cholesterol 147 <200 mg/dL [facility] Comment:Desirable Cholestero l: less than 200 mg/dLBorderline High Cholesterol: 200-239 mg/dLHigh Cholesterol: greater than 239 mg/dL LDL Cholesterol Calculated 74 <100 mg/dL [facility] Comment:Desirable LDL: less than 100 mg/dLNear Optimal/Above Optimal LDL: 110- 129 mg/dLBorderline High LDL: 130-159 mg/dLHigh LDL: 160-189 mg/dLVery High LDL: greater than or equal to 190 mg/dL HDL Cholesterol 59 >40 mg/dL [facility] Comment:Desirable HDL: great er than 40 mg/dL Note: This HDL assay may give artificially low results in patients with liver disease. Blood Venous blood specimen / Unknown 11/30/2024 3:07 PM EDT 11/30/2024 5:03 PM EDT Faviola [facility] BLOOD ORDERABLES Final Res ult Performing Organization Address [facility] de Phone Number [facility] [address] [place] [address] [phone] * Hepatitis C Viral RNA, Quantitative, Real-Time PCR (11/15/2024 3:35 PM EDT) [facility] Hepatitis C Viral Load <15 NOT DETECTED NOT DETECTED IU/mL [facility] HCV Log PCR <1.18 NOT DETECTED NOT DETECTED Log IU/mL [facility] Comment:For additional infor mation, please refer [email or web address](This link is being provided for informational/educational purposes only.)THIS TEST WAS PERFORMED AT:[facility] [place] [id number] SIM MD Blood 11/15/2024 3:35 PM EDT 11/15/2024 3:35 PM EDT Faviola [facility] BLOOD ORDERABLES Final Res ult Performing Organization Address [facility] de Phone Number [facility] [address] [place] [address] [phone] * Vitamin D 1,25 dihydroxy (11/15/2024 3:35 PM EDT) [facility] Vit D (1,25-Dihydroxy) Total 65 18 - 72 pg/mL [facility] VITAMIN D (1,25 OH) D3 65 pg/mL [facility] Vitamin D (1,25 OH) D2 <8 pg/mL [facility] Comment:Vitamin D3, 1,25(OH) 2 indicates both endogenousproduction and supplementation. Vitamin D2, 1,25(OH)2is an indicator of exogenous sources, such as diet orsupplementation. Interpretation and therapy are basedon measurement of Vitamin D,1,25(OH)2, Total.This test was developed and its analyticalperformance characteristics have been determinedby [employer] [place], [place].It has not been cleared or approved by the FDA. Thisassay has been validated pursuant to the CLIAregulations and is used for clinical purposes.THIS TEST WAS PERFORMED AT:[employer] | [employer] | [employer] [id number] [place] [id number] GUEVARA MD,PHD 11/15/2024 3:35 PM EDT 11/15/2024 3:35 PM EDT Faviola Roy [facility] BLOOD ORDERABLES Final Res ult [facility] [address] [place] [phone] * RPR (Monitor) with Reflex to??Titer (11/15/2024 3:35 PM EDT) RPR (Monitor) w/Refl Titer NON-REACTI VE NON-REACT HILARIA [facility] Comment:THIS TEST WAS PERFOR MED AT:[employer] [address] [id number] SIM MD Rapid Plasma Reagin Ab Titer TNP [facility] Blood Venous blood specimen / Unknown 11/15/2024 3:35 PM EDT 11/15/2024 3:35 PM EDT us Faviola Phallarisa [facility] BLOOD ORDERABLES Final Res ult Performing Organization Address City/[facility]/ZIP Co de Phone Number [facility] [address] [place] [address] [phone] * TSH (11/15/2024 3:35 PM EDT) Thyroid Stimulating Hormone 1.12 0.32 - 4.0 uIU/mL [facility] Comment:TSH 3rd Generation ( [facility]) 11/15/2024 3:35 PM EDT 11/15/2024 3:35 PM EDT Faviola Roy [facility] BLOOD ORDERABLES Final Res ult Performing Organization Address [facility] Co de Phone Number [facility] [address] [place] [address] [phone] * Hemoglobin A1c (11/15/2024 3:35 PM EDT) Hemoglobin A1c 5.2 <6.0 % [facility] Comment:Hemoglobin A1C Refer ence Range Adults: 4.8 - 6.0 % Non diabetic: < 6.0 % Goal: < 7.0 %Additional Action Suggested: > 8.0 %Note: Hemoglobin A1c results are invalid for patients with abnormal amounts of HbF. Blood transfusions may impact the HbA1c concentration in the patient sample. Estimated Average Glucose 103 mg/dL [facility] Comment:eAG = Estimated ave rage glucose which is %A1C expressed asaverage glucose, using the formula of the C5N-TashzbqVugisok Glucose study (ADAG), Diabetes Care, Vol.31,#8,Sep. 2007 Blood Venous blood specimen / Unknown 11/15/2024 3:35 PM EDT 11/15/2024 3:35 PM EDT Faviola Phallarisa [facility] BLOOD ORDERABLES Final Res ult Performing Organization Address [facility] Co de Phone Number [facility] [address] [place] [phone] * Ferritin (11/15/2024 3:35 PM EDT) Ferritin 29 10 - 122 ng/mL [facility] Blood Venous blood specimen / Unknown 11/15/2024 3:35 PM EDT 11/15/2024 3:35 PM EDT Faviola Roy [facility] BLOOD ORDERABLES Final Res ult [facility] [address] [place] [phone] * Chlamydia/Trichomonas/Neisseria gonorrhoeae, PCR, Urine (11/15/2024 3:17 PM EDT) [facility] CT PCR, Urine NOT DETECTED Not Detect. [facility] [facility] Comment:A not detected test result does [...] NG PCR, Urine NOT DETECTED Not Detect. [facility] Comment:A not detected test result does [...] EDT 11/15/2024 3:56 PM EDT Faviola Roy [facility] URINE ORDERABLES Final Res ult [facility] [address] [place] [address] [phone] * Pap Smear (09/29/2023 11:47 AM EDT) SOURCE: SEE NOTE [facility] Comment:None given Report Status: [facility] Clinical Information: SEE NOTE [facility] Comment:None given LMP: SEE NOTE [facility] Comment:NONE GIVEN Prev. PAP: SEE NOTE [facility] Comment:NONE GIVEN Prev. BX: SEE NOTE [facility] Comment:NONE GIVEN Statement Of Adequacy: SEE NOTE [facility] Comment:Satisfactory for jesus luation.Endocervical/transformation zone componentpresent. General Categorization: [facility] Interpretation/Result: SEE NOTE [facility] Comment:Cytology Results: Ne gative for intraepitheliallesion or malignancy. Cytology Comment SEE NOTE [facility] Comment:This Pap test has be en evaluated with computerassisted technology. Blankbook Forwarder: SEE NOTE [facility] Comment:CMB, CT(ASCP) CT Scr eening Location: [facility],[address] [place], [place] [address]lide preparation performed at: [facility], [address] [place] [id number] CLIA No. [id number] Review Blankbook Forwarder: [facility] Pathologist [facility] PAP Infection [facility] See Note SEE [facility] Comment:EXPLANATORY NOTE:The Pap is a screening test for cervical cancer. It isnot a diagnostic test and is subject to false negativeand false positive results. It is most reliable when asatisfactory sample, regularly obtained, is submittedwith relevant clinical findings and history, and whenthe Pap result is evaluated along with historic andcurrent clinical information.THIS TEST WAS PERFORMED AT:[facility] [address] [id number] MERATI,MD Pap Vial Vaginal structure / Unknown 09/29/2023 11:47 AM EDT 09/29/2023 7:13 PM EDT Narrative [facility] - 10/03/2023 2:51 PM EDT SEE SCANNED RESULTS IN EMR Faviola Roy [facility] PATHOLOGY ORDERABLES Final Result [facility] [address] [place] [address] [phone] from Last 3 Months or Most Recently Relevant to Health Maintenance [facility] Care Teams Wellness Director Relationship Specialty Start Date End Date Faviola Roy FNP [address] [place] [phone] PCP - General Family Medicine 10/05/21"
--- OUTSIDE RECORDS SUMMARY | 2025-02-05 20:50 | XMS_ITS | Encounter Summary ---
Author Organization [email or web address] Address [address] [place] [address] 7 [place] [address] Care Team Providers Care Guzzler Builder Name Role Phone Faviola Roy Primary Care Provider [phone] Encounter Details Date Type Department Care Team (Late st Contact Info) Description 09/11/2022 Orders Only [facility] [address] [place] [address] Faviola Roy FNP [address] [place] [address] Dietary iron deficiency without anemia (Primary Dx) [...] EDT) Ferritin 13 10 - 122 ng/mL [facility] 06/10/2023 12:0 3 PM EDT 06/10/2023 3:56 PM EDT us Faviola Phalen BULL CHAIN OPERATOR LAB BLOOD ORDERABLES Final Res ult Performing Organization Address [facility]/ZIP Co de Phone Number [facility] [address] [place] [address] [phone] * Iron And Total Iron Binding Capacity (06/10/2023 12:03 PM EDT) Iron 105 30 - 160 mcg/dL [facility] Total Iron Binding Capacity 377 228 - 428 mcg/dL [facility] Percent Iron Saturation 28 15 - 50 % [facility] Unsaturated Iron Binding 272 ug/dL [facility] 06/10/2023 12:0 3 PM EDT 06/10/2023 3:56 PM EDT us Faviola Phalen BULL CHAIN OPERATOR LAB BLOOD ORDERABLES Final Res ult Performing Organization Address [facility]/ZIP Co de Phone Number [facility] [address] [place] [phone] * (ABNORMAL) CBC auto differential (06/10/2023 12:03 PM EDT) White Blood Count 9.1 4.8 - 10.8 X10*3/uL [facility] Red Blood Count 5.07 4.20 - 5.50 X10*6/uL [facility] Hemoglobin 14.0 12.0 - 16.0 g/dl [facility] Hematocrit 43.5 37.0 - 47.0 % [facility] Mean Corpuscular Volume 85.8 80.0 - 98.0 fL [facility] Mean Corpuscular Hemoglobin 27.6 27.0 - 33.0 pg [facility] Mean Corpuscular HGB Conc 32.2 31.0 - 35.0 g/dl [facility] Red Cell Distribution Width 12.4 11.0 - 16.0 % [facility] Platelet Count 405(H) 160 - 400 X10*3/uL [facility] Mean Platelet Volume 9.9 9.4 - 12.3 fL [facility] Neutrophils Percent Auto 49.7 45 - 73 % [facility] Imm Gran Pct Auto 0.2 0.0 - 0.4 % [facility] Lymphocytes Percent Auto 38.9 20 - 40 % [facility] Monocytes Percent Auto 7.0 2 - 11 % [facility] Eosinophils Percent Auto 3.8 0 - 4 % [facility] Basophils Percent Auto 0.4 0 - 2 % [facility] NRBC Pct Auto 0.0 0.0 - 0.2 /100WBC [facility] Neutrophils Absolute Auto 4.5 2.0 - 8.3 x10*3/uL [facility] Imm Gran Abs Auto 0.02 0.00 - 0.03 X10*3/uL [facility] Lymphocytes Absolute Auto 3.5 1.2 - 4.9 X10*3/uL [facility] Monocytes Absolute Auto 0.6 0.1 - 1.2 X10*3/uL [facility] Eosinophils Absolute Auto 0.3 0.0 - 0.4 X10*3/uL [facility] Basophils Absolute Auto 0.0 0.0 - 0.2 X10*3/uL [facility] NRBC Abs Auto 0.000 0.0 - 0.012 X10*3/uL [facility] 06/10/2023 12:0 3 PM EDT 06/10/2023 1:14 PM EDT us Faviola SEARS LAB BLOOD ORDERABLES Final Res ult [facility] [address] [place] [phone] documented in this encounter Visit Diagnoses Diagnosis Dietary iron deficiency without anemia- Primary documented in this encounter Additional Health Concerns Assessment Noted Time PHQ-9 Depression Total Score: 0 02/13/19 23 1:59 PM EST documented as of this encounter Care Teams Guzzler Builder Relationship Specialty Start Date End Date Faviola Roy FNP [address] [place] [address] PCP - General Family Medicine 10/05/21 documented as of this encounter
[2025-02-05 21:22] VITALS: BP 161/68; PULSE 95; RESP 16; O2SAT 99
[2025-02-05 21:33] LABS: Appearance Urine Clear; Glucose Urine UA Negative (Negative); PH 5.5 (5.0-9.0); Specific Gravity - Urine >= 1.030 (1.005-1.025)
[2025-02-05] MEDS: Lactated Ringers 1,000 ML 999 ML IV (22:19)
[2025-02-05 23:38] VITALS: BP 117/47; PULSE 65; RESP 16; TEMP 36.3; O2SAT 100
[2025-02-06 00:37] VITALS: BP 117/47; PULSE 65; RESP 16; TEMP 36.3; O2SAT 100
== END 2025-02-06 00:37 | disposition home or self-care (01) ==
PROVIDERS: Physician Assistant; Emergency Provider Emergency Medicine; PCP Registered Nurse
DX: O21.0 Mild hyperemesis gravidarum (principal); Z3A.09 9 weeks gestation of pregnancy; Z03.818 Encounter for observation for suspected exposure to other biological agents ruled out
CPT/HCPCS: 80053; 81001; 83690; 84702; 85025; 87637; 96361; 96374; 99284; J2405; J7120